=== PATIENT | female | born 1945 | race Caucasian/White ===

== ENCOUNTER 2022-10-24 11:01 | Outpatient (OUT) | payer MEDICARE, SELFPAY ==
[2022-10-24 11:39] LABS: Basophils Percent Auto 0.6 % (0.2-2.0); Eosinophils Absolute Auto 0.1 10^3/uL (0.0-0.7); Eosinophils Percent Auto 0.8 % (0.9-7.0); Hematocrit 38.7 % (36.0-48.0); Hemoglobin 12.8 g/dL (12.0-16.0); Immature Granulocytes Abs Auto 0.01 10^3/uL (0.00-0.03); Immature Granulocytes Pct Auto 0.1 % (0.0-0.5); Lymphocytes Absolute Auto 1.3 10^3/uL (1.2-3.8); Lymphocytes Percent Auto 17.7 % (20.5-60.0); Mean Corpuscular HGB Conc 33.1 g/dL (29.9-35.2); Mean Corpuscular Hemoglobin 31.8 pg (26.7-34.0); Mean Platelet Volume 9.4 fL (9.5-13.5); Monocytes Absolute Auto 0.4 10^3/uL (0.3-0.8); Monocytes Percent Auto 5.2 % (1.7-12.0); Neutrophils Absolute Auto 5.3 10^3/uL (1.4-6.5); Neutrophils Percent Auto 75.6 % (43.0-75.0); Platelet Count 249 10^3/uL (150-450); Red Blood Count 4.03 10^6/uL (4.20-5.40); Red Cell Distribution Width 12.6 % (11.0-15.0); White Blood Count 7.1 10^3/uL (4.0-11.0)
[2022-10-24 13:08] LABS: Alanine Aminotransferase 31 U/L (14-59); Albumin Globulin Ratio 1.4; Albumin Level 3.9 g/dL (3.4-5.0); Alkaline Phosphatase 95 U/L (46-116); Anion Gap 13.2; Aspartate Amino Transferase 22 U/L (15-37); BUN Creatinine Ratio 24.7; Bilirubin Total 0.6 mg/dL (0.2-1.0); Chloride 107 mmol/L (98-107); Chol HDL Ratio 1.9; Cholesterol 204 mg/dL (<=200); Estimated GFR (African America >60 (>=60); Estimated GFR (Non-African Ame >60 (>=60); Free T3 2.11 pg/mL (2.18-3.98); Globulin 2.7 g/dL; Glucose 95 mg/dL (74-106); HDL Cholesterol 110 mg/dL (40-60); Potassium 4.2 mmol/L (3.5-5.1); Sodium 142 mmol/L (136-145); Total Protein 6.6 g/dL (6.4-8.2); Triglycerides 25 mg/dL (<=150)
[2022-10-24 15:33] LABS: Estimated Average Glucose 105 mg/dL; Glycohemoglobin A1C 5.3 % (4.5-6.2)
[2022-10-25 12:09] LABS: Insulin 4.4 uIU/mL (2.6-24.9)
== END 2022-10-24 11:02 | disposition home or self-care (01) ==
LOC: LAB 11:06
PROVIDERS: PCP Family Medicine; Visit Provider Family Medicine
DX: F41.9 Anxiety disorder, unspecified (principal); E78.5 Hyperlipidemia, unspecified; R53.83 Other fatigue; R73.09 Other abnormal glucose; Z79.899 Other long term (current) drug therapy; D64.9 Anemia, unspecified; E55.9 Vitamin D deficiency, unspecified
CPT/HCPCS: 36415; 80053; 80061; 82306; 83036; 83525; 83540; 84436; 84443; 84481; 85025

== ENCOUNTER 2022-11-14 11:19 | Outpatient (OUT) | payer MEDICARE, SELFPAY ==
--- NOTE | 2022-11-14 11:24 | XR_ITS ---
[address] [address] Patient Name: JUAN ABDALLA MRN: [id number] date: 1945 Sex: F Assigned Patient Location: [facility] Current Patient Location: RAD Accession/Order Number: [id number] Exam Date: 11/14/2022 11:33 Report Date: 11/14/2022 12:15 At the request of: LUCILLE LIVINGSTON Procedure: XR DEXA axial skeleton EXAMINATION: XR DEXA axial skeleton HISTORY: Age Related Osteoporosis M81.0 COMPARISON: DEXA bone densitometry 01/05/2017 TECHNIQUE: Dual-energy X-ray absorptiometry (DXA) was performed. FINDINGS: FOREARM ANALYSIS: Average bone mineral density is 0.584 g/cm2. T-score (standard deviation relative to young adult mean): -1.8 . -10.4% change since prior study. HIP ANALYSIS: Lowest bone mineral density is within the femoral neck, 0.857 g/cm2. T-score (standard deviation relative to young adult mean): -1.3 . +4.8% change since prior study. XR/XR DEXA axial skeleton IMPRESSION: [employer] Classification: Osteopenia - Moderate Fracture Risk Electronically authenticated by: DIANE VIVAR Date: 11/14/2022 12:15
== END 2022-11-14 11:20 | disposition home or self-care (01) ==
LOC: RAD 11:19
PROVIDERS: PCP Family Medicine; Visit Provider Family Medicine
DX: M81.0 Age-related osteoporosis without current pathological fracture (principal); E28.39 Other primary ovarian failure; M85.88 Other specified disorders of bone density and structure, other site
CPT/HCPCS: 77080

== ENCOUNTER 2023-07-12 07:24 | Outpatient (RCR) | payer MEDICARE, SELFPAY ==
[2023-07-12] MEDS: DENOSUMAB 60 MG/ML SYRINGE SUBQ (12:06)
[2023-07-12 12:07] LABS: Calcium 8.9 mg/dL (8.5-10.1); Estimated GFR (African America >60 (>=60); Estimated GFR (Non-African Ame >60 (>=60)
[2023-07-12 12:10] VITALS: BP 126/76; PULSE 76; TEMP 37.3; O2SAT 96
--- NOTE | 2023-07-12 12:12 | PC.NURSE ---
1155: Pt. to [facility] amb. Seated in recliner. VSS. Denies questions regarding medication. 1205: Medicated with Prolia sq to left upper arm. No bleeding to site. Instructed pt. remain present for 15-20 mins for observation. Pt. given diet Coke.
--- NOTE | 2023-07-12 12:23 | PC.NURSE ---
1221: Pt. d/c'd amb. to home. Pt. without s&s of adverse reaction
== END 2023-08-08 23:59 | disposition home or self-care (01) ==
LOC: INF 07:24
PROVIDERS: PCP Family Medicine; Visit Provider Family Medicine
DX: M81.0 Age-related osteoporosis without current pathological fracture (principal)
CPT/HCPCS: 36415; 82310; 82565; 96372; J0897

== ENCOUNTER 2024-02-19 11:32 | Outpatient (OUT) | payer MEDICARE, OTHER, SELFPAY ==
--- OUTSIDE RECORDS SUMMARY | 2024-02-19 11:36 | XMS_ITS | CCD ---
Author Organization [facility] Care Team Providers Care Payroll Administrator Name Role Phone CHRISTOPHER HINSON Consulting Unavailable CHRISTOPHER HINSON Admitting Unavailable DR LUCILLE LIVINGSTON Primary Care Unavailable CHRISTOPHER HINSON Attending Unavailable RYAN WRIGHT Consulting Unavailable DR LUCILLE LIVINGSTON Primary Care Unavailable JAZZMINE JASMINE Attending Unavailable JAZZMINE JASMINE Consulting Unavailable JAZZMINE JASMINE Admitting Unavailable Problems Active Problems Problem Classification Problem Date Documented Da te Episodic/Chronic Cataract (4 sources) Age-related nuclear cataract, left eye; Translations: [AGE-REL NUCLEAR CATARACT LT EYE] Onset: 07-16-2020 Chronic Other non-traumatic joint disorders (4 sources) Other specific joint derangements of right shoulder, not elsewhere classified; Translations: [OTH SPEC JOINT DERANG RT SHLDR NEC] Onset: 11-04-2020 Chronic Past or Other Problems Problem Classification Problem Date Documented Da te Episodic/Chronic Other eye disorders (1 source) Dry eye syndrome of unspecified lacrimal gland; Translations: [DRY EYE SYNDROME UNS LACRIMAL GLAND] Onset: 07-17-2020 Episodic Results Test Name Value Interpretation Reference Range Facility MAGR Intraoperative Recordon 01-25-2021 MAGR Intraoperative Record MAGR Intra-Op Record Summary Primary Physician: Huang Mclaughlin DO Finalized Date/Time: 01/25/21 12:23:07 Pt. Name: JUAN ABDALLA/Sex: 1945 FEMALE Med Rec #: [id number] Physician: Huang Mclaughlin DO Financial #: [id number] Pt. Type: D Room/Bed: / Admit/Disch: 01/11/21 06:01:30 - 01/11/21 14:26:00 Institution: Case Times MAGR Entry 1 Patient In Room Time 01/11/21 07:38:00 Out Room Time 01/11/21 10:05:00 Anesthesia Start Time 01/11/21 07:40:00 Stop Time 01/11/21 10:09:00 Surgery Start Time 01/11/21 08:21:00 Stop Time 01/11/21 09:59:00 Last Modified By: Christie Franco RN 01/11/21 11:26:28 Case Attendance MAGR Entry 1 Entry 2 Entry 3 Case Attendee Huang Mclaughlin Robert M MD Payne RN, Matthew Rivero DO Role Performed Surgeon - Primary Anesthesiologist of Manager Personnel Selection Record Time In 01/11/21 07:38:00 01/11/21 07:38:00 01/11/21 07:38:00 Time Out 01/11/21 10:05:00 01/11/21 10:05:00 01/11/21 10:05:00 Procedure Arthroplasty Shoulder Arthroplasty Shoulder Arthroplasty Shoulder Total(Right) Total(Right) Total(Right) Last Modified By: Tremaine RN, Matthew Penaloza RN, Matthew Penaloza RN, Matthew Augustine 01/11/21 12:07:58 01/11/21 12:07:58 01/11/21 12:07:58 Entry 4 Entry 5 Entry 6 Case Attendee Elise Shaw RN, Leigh-Ann CST Johnson-Williams, Regina CST Role Performed Journeyman Pipe Welder Journeyman Pipe Welder Scrub Personnel Time In 01/11/21 07:38:00 01/11/21 07:38:00 01/11/21 07:38:00 Time Out 01/11/21 10:05:00 01/11/21 10:05:00 01/11/21 10:05:00 Procedure Arthroplasty Shoulder Arthroplasty Shoulder Arthroplasty Shoulder Total(Right) Total(Right) Total(Right) Last Modified By: Tremaine RN, Matthew Penaloza RN, Matthew Penaloza RN, Matthew Augustine 01/11/21 12:07:58 01/11/21 12:07:58 01/11/21 12:07:58 General Comments: ANDREAS CASTRO-ARTHREX Surgical Procedures MAGR Pre-Care Text: A.20 Verifies operative procedure, surgical site, and laterality Im.150 Develops individualized plan of care Entry 1 Procedure Arthroplasty Shoulder Primary Procedure Yes Total Primary Surgeon Arnoldo, Huang Modifiers Right Mat DO Surgeon Comment RIGHT TOTAL SHOULDER Start 01/11/21 08:21:00 Stop 01/11/21 09:59:00 Anesthesia Type General Surgical Service Orthopedics Wound Class Clean Technique Details Closure Technique Primary Entire procedure No was performed via laparoscope or robotic assistance Last Modified By: Matthew Penaloza RN 01/11/21 12:08:06 Post-Care Text: O.730 The patient's care is consistent with the individualized perioperative plan of care General Case Data MAGR Pre-Care Text: A.350.1 Classifies surgical wound Entry 1 Case Information OR MAGR OR 05 Case Level Level 5 Wound Class Clean Specialty Orthopedics ASA Class 2 Diagnosis Preop Diagnosis DJD RIGHT SHOULDER Postop Same As Preop Yes Postop Diagnosis DJD RIGHT SHOULDER Blunt or No Is the procedure No penetrating injury considered occured prior to Emergent/Urgent? the start of the procedure: Last Modified By: Matthew Penaloza RN 01/11/21 08:32:45 Post-Care Text: O.760 Patient receives consistent and comparable care regardless of the setting Time Out MAGR Entry 1 Time out date/time 01/11/21 08:20:00 All team members Yes have introduced themselves by name and role Surgeon, Yes Surgeon reviews Yes anesthesia, nurse critical or confirm patient, unexpected steps, site, procedure operative duration, anticipated blood loss Anesthesia team Yes Nursing team Yes reviews any reviews sterility patient-specific (including concerns indicator results) and equipment issues/concerns Antibiotic Antibiotic Yes Administration Time 08:00 prophylaxis given within the last 60 minutes Is essential N/A imaging displayed? Last Modified By: Matthew Penaloza RN 01/11/21 08:24:38 Patient Positioning MAGR Pre-Care Text: A.280 Identifies baseline musculoskeletal status Im.40 Positions the patient Im.80 Applies safety devices Entry 1 Procedure Arthroplasty Shoulder Body Position Beach Chair Total(Right) Left Arm Position Resting at Side Right Arm Position Held on field Left Leg Position Elevated Right Leg Position Elevated Feet Uncrossed? Yes Press Points Checked Yes Positioning Device Head Positioner, Pillow Outcome Met (O.80) Yes Last Modified By: Matthew Penaloza RN 01/11/21 08:34:59 Post-Care Text: E.290 Evaluates musculoskeletal status O.80 Patient is free from signs and symptoms of injury related to positioning Skin Prep MAGR Pre-Care Text: A.30 Verifies allergies Im.270 Performs skin preparation Im.270.1 Implements protective measures to prevent skin and tissue injury due to chemical sources Entry 1 Skin Prep Syntegrity Prep Agents (Im.270) Chlorhexidine Gluconate Prep By Tremaine MERCHANT, Matthew Augustine and Alcohol Prep Area (Im.270) Elbow and forearm, Prep Area Details Right Hand, N (more content not included)... [facility] Coding Summaryon 01-15-2021 Coding Summary HTMLBase 64 ItlplsfeWOs9rWl+PGhlY WQ+QX3FTYSvK49swDOhwT 3ZJ6gCRE2RCLDGFNJUWS1 WIT4gfGF6SAvzV4FhooJc OvklvPGsEY09ZOa1PLZ5h LjpEJnyrO6fsEUrG8k0Zh TpWS53yP85IQwbZWAcDkX 3LjZpbjsgbWFy K7irAgLmpSJgZqv+PHRhY mxlIHdpZHRoPScxMDAlJy FfgFelNG8xVk0sZFQvUKP vbGxhcHNlOiBj c3tqRLHzZDwsZP0jnNcjP 7JvlPF7SIHuw1x5Cw04fR I+YWNlUKG4sJyyHXmnw79 0GhFnk9qlTTF8 fMVxMPurADN4E70vs4W2B ETtGNFhCFA0zSD1bT4ezA jqmwwsR0EjoRBbLyD3HBF 1uUKnlP9kgXbs dqezvS8nVli+O45LDH2LP JJLBL7JFha9M3AqLmbwtN I+SZ11GVSsJP32lSOgtWX ty3vvcDg2UxSz WEDrMPA7gQijCQmvs1BxT VJhM50emMRdq1V7KJAosM rctXNaLoXytLV4fM9rUXt fnifxv4ryotvr Jinrp6rfxw79fP72R86lE EbyAYNyFUJ9PZDfQISsqS mces5wdK5nRn9+MKymc1t ut2yrvHc4ZhJq HSPgibLjeTsoILP5d9JxI s83Z5DlcEega4EvRhs7pi 93zUHsp4S8sFG6WNdyJQN acO6lMDndDwI3 FDKqZiTdaA67aNKoXPtuL v5asVhinRhgDB0wHWHxpg hoGCIpnV1jXHPrmPLqyWb cYO4tGXAybxts i676PyUwSQV2UIQelQEmT 1EcvK8fTiZvZJMrEFEqG2 KdaVFfPTkfN833YGadXmD 6LYZdmsEiU6Fo CWEiyQduBfS6o5H9Mq6Ic 2RemgqnHSK2QIpdVQDvEm K4VsYxVgJ5P4YnMnv1TFO nnCvkQD2bS1Eb FKYokioyxnujdTQ5AESlY UYqkQ40mKCiGXfpLr5vq3 I0g867WKMsSAQoiF84Qc3 udDogMTBwdCBU sC2leqwkt0zypcfrAcZyG YQdZPm3CGd2BSAblMxzFr UqUPF5DlH4CYP4uYQoaK9 ceOaedqpfbB4d Oyc+Y84njD1tVBA2MNR0a kwiVBIopfFtNN48YA82D5 RyPjwvdGFibGU+PGRpdiB hjAueTZ2xJbNk a5krb6BiIPcoV7XlVLRgH VawGun2VEItTPJ2gFT4yN 7cGOAsEHdob0Q2yJU4D2S oerXxiq9ne3oj OWDgFPqxV08uzVYzq1E5J GAbnOY6ZBHcyTcyOrMkwZ 93Oyc+QBLgtUssi8FlRnh lf2ktw8ikmVx2 VrFaBJPfftYzsIycYIK3q 3AiLe28C28aTDgaARFeUL KbWXFbBIGflVyfnr5yfG9 wIi8+PGNvbCB3 vEP7dH8yKZJzGsZ1UXdsJ 201GxNyuNQzZykbn2vgf0 bctPq2SlKdCOZbxxRitUl kAAL5i6DbHg30 T66cARqbLNXeKIEkCIZoF WTtnOijck4xmK5hGo1+PC 7bc5vttq99rP13cWJ+PHR pCZY1wVngCGzf YBUbhL9hCTcwThJ0LBNbA tXwmB86bGMrFZohRv0moT nkhBykPV3pWLKcwgttj78 7SdBsz2orUQWz nJChHTbtAKO7M03dy1W2C VBfSAQcSUS0fQN2vE0zeJ lnbjogbGVmdDsgdmVydGl wLTpeLTjoO157 IHRvcDsnPlBhdGllbnQgT qXcOBr6P2YlIgy4UVMtxB pyPP0ylFSyOCyfUc2ypHt mbMfaGS9mYKTw ffhuo906DvOgd8xcLAQcu DIzYYwcLCH3I62kb8Z2YM YcCIBbHDK3cVD0cJ1dfLm nbjogbGVmdDsg adGhhWmgYRluVXktL389O HRvcDsnPkJpcnRoIERhdG A7TH33MQ49kVIpi7Q0hTS 9D6SyZNRuoujg vzeguCI2NSKuLWSmiL79U g7lxArwCm6nZUOwQKN7JK SweZGcT9KvbI9sWxQqPOF fATWdN2JzyNRm SZryR322XFtjYhH2WTPii bKuP2FmHYJxqOfqTuP9y1 M9Gl9VM3N0FC05QI71oTU hq7G2lKN2N3Ui UMDnllenqkbiaDU4APWhB VXuwT39So3peKrcCi0uAT YqIVA4KQTpcNDeQ0TdzZ1 yOiAjMDAwMDAw U9PheZEoKRpnE110ALglZ iY2MKNcioLaW4MdHTLkjR xgEnT9k0S0An6COOz0FK4 8CV48fXSug1S0 jWX2O7CpZHEazbnloihci GX7TRGtDFObpR20Go2kjW hkDo3oYHKzUGG1VEZvzSU lS0NrsK9sXsYi CHNsJHVuJ6UxrOWtCTaeF 679JUtaWeS9NRQrmsWwF4 ObLHNweFtjEoY2p8J5Cp3 WPUHxUK50COR1 aGD4VD70MR52E2IdGwotv GFibGU+PHRhYmxlIHdpZH RoPScxMDAlJyBzdHlsZT0 nKi0rCIXgJJTo oZbyyEUbGvUaq3oyJKXuS YkaNZ5mxWlqS6ZwmOJ0GU Soz3y1Az23L51rM8FymBI +ARIjtUG5iAP6 oN4jDqQkExJ8WBaoZ138F kHtiHAvKnayb3qpx0nunW d1HfF5AFFaslVozGvlYNC 0l2LdWd35M80e IHdpZHRoPSIxNSUiIHZhb Rxyzp3ktH2iUm6+PGNvbC A2wBB1pJ5nWmRzLzF3GUt aL463LfWhcEPy Cflqg6osd3mwzAd1ZnRvM EGnvmRglXdaXJC8n4WqMq 80K3AciVsdk6AvIxx0bz5 9sSEnr2X5qDG4 Z2CmWHShhrfwyHIdpJgoG N2nBBEbwfetWINpwY1vGB YkP0z4FvEzLkO7EAgdL5S dpqS0HRJqiRJo RTndVXL1T46ya9Q0MGHyD MNnJWQ9hOE0fF4zzJcrhp ogbGVmdDsgdmVydGljYWw wVRmiO997RGDl zGohDZGjiZ8bPMRnpJJav DykNV2pCKIgmgjgKhpDRf WPGIVhNPQTWTFKN6tZYUU 8I2MmDkl2JOJx mEndEZ2reJVpRIfpBy1bw KcbzPbmVL0wPANrvvolKQ FkzL1eEBKvfQFypQqnRU4 nLBPjonpji885 GjKfQEY9JNAxuCRcL7Ort D6mAjKoKSFfKQCzC4NkgH ZnCMllA241GTrnHeN2JMG syxAsE6RsOXDx gErnKnV3o6K9Zg1kTz4kY C9aVYG4KH01BE59jPTrp2 C3gPO1H5AjVMScwrkpbaq foTR2AFUyDIWe mZ51bKGfLNljGv5ex0U2s 631NIJfYDDiiS49Zb4mnT myASJdcVGKpT3jpanac3m vcjogIzAwMDAw QIh9GDc2XOMdxZnsVwArN GD7JtU3TGX9nIVwyH7ajJ najoikoO6iOrs+NzYgWWV uhrL5N7HpYwm2 RUBozPwbLF0jgXKiXTfnP r0tqSrxaEenUT2vQHPuuj zdRWEvdJ6vFPKhzLDlhLy kJH7jKYTcjudf w418WzGsCLO4RGCjiRBgL 9VloK4qMvQnOJWwWZGyO7 StkPJcUFbdR883ISwfYeP 0EQQseeCvC8Kl ZEFvqZmqGrK7i1W0Xd6SI E3KFHV6O4XzXnf6TCWvwB lcWW7gvGFzOCsaIf3oaYk sbHnqZK2dBLXi iztbYEAsqE6gVAZatJXkn JfhMA8mPCVzdwzpt022Xe LiKCX9YRYdzAYvR9LncR3 yOiAjMDAwMDAw Y9NfqNGiJBixC638GIaxW yG4CGAqoaNlL7EeNHTkaU gdJbT7l0I6Vw4BGZyzG6X iM4LshVixvGC+ JV44ys52Z3TlZojuKri4G UYyRQD7cRJ4zK2wTTFkDO tyz9W0zDF6I4ZputImoq2 bh5seGXEnZTdg P74deHTjh7V8PZIvdNS9W VXzaJefSnYzcL43Snw+PG QnfFfoo3ZnAqfjn0vmi9w hsTk0XvVuJHAs jkPhnYwmVGD8u9FnMg35G 29sIHdpZHRoPSIzMCUiIH VkqKfusz4zhZ5jCt5+PGN yhWC3hXX7wE6y UuIcRsI0EFwfR983QpXdc RHyHwkbr9eio7vmjMy9Dy SxDVDjmsUwnEalMWO6i2Q bUp32H7TesRja u2VbGnz4xy18nMXio6R7a NO7X1GgGJRljwbgoTFdfB ihAA0eNDSaawmbDIPvnS9 uZKLeW1j7HvGl LoL3KDseD5FmqsO4DEZwv VRzUIIqaOEUuG4klrmcc0 lefcapPsQdBGAoOIe7JUg 0LWFsaWduOiBs YAR3OjV9SQD6cZBfqL6qj ZesomvzhZ5zWyx+UGh5c2 izfJHsCE9guIJ9NI58BS6 0aXHyc2G7dCD8 G0TdQBQpkbrilgeaxYM2X FEoYGDkaY00Ce2khGtkKv 8pAJOeFUH6UFJbtWGwM5E wyS0tEsDiKDLe NCCgG2EbpLTyMNogQ817W LqmZlY7CAWptfPvP0JvSA KzaCicUcR2e0O7Bk4HPU3 7JX47TK69dLNg y9C8hZY9G5AmUKQyipoko erpjIY7LSTyROGmyL88Lh 3nzTqrCd7yGFAtDQO2SYO idSDnF1ChkV9r ItNeWCBcAHYpF5ZiwDTeB IuaH865JMucJuA1MRIfgz GsJ0NmKYCzmKqbQaN0k7L 7Ub4FDs12OR70 RU35nJVmo9Z3mSX6V6KdR HJpatnrfeykdMM0HOZfGL PblX49Mg4iuKfcMn0tVRG kIPK1WCSqeXKf P3PhsH7qSyRvHBPmNMWwX 8HtiIDnHSrdR451YHwkGw V2PDErevIeM3LhIFQgbNe yAtU3y6Y9Gj2X FNehhru7T9PfLnuozSB+P J75IPVcNO88qDUpzUIst1 pqjMt3ZtDtOWPxMSC4cJh kQPfjo9ZlMUQj Y29 (more content not included)... Normal [facility] MAGR Intraoperative Recordon 01-14-2021 MAGR Intraoperative Record MAGR Intra-Op Record Summary Primary Physician: Nasim Egan MD Finalized Date/Time: 01/14/21 12:46:14 Pt. Name: JUAN ABDALLA/Sex: 1945 FEMALE Med Rec #: [id number] Physician: Huang Mclaughlin DO Financial #: [id number] Pt. Type: D Room/Bed: / Admit/Disch: 01/11/21 06:01:30 - 01/11/21 14:26:00 Institution: Case Times MAGR Entry 1 Patient In Room Time 01/11/21 07:20:00 Out Room Time 01/11/21 07:38:00 Anesthesia Start Time 01/11/21 07:22:00 Stop Time 01/11/21 07:38:00 Surgery Start Time 01/11/21 07:23:00 Stop Time 01/11/21 07:33:00 Last Modified By: Charlette Eddy RN 01/11/21 07:55:09 Case Attendance MAGR Entry 1 Entry 2 Case Attendee Nasim Egan MD, Lora RN Role Performed Surgeon - Primary Manager Personnel Selection Time In 01/11/21 07:20:00 01/11/21 07:20:00 Time Out 01/11/21 07:38:00 01/11/21 07:38:00 Procedure Interscalene Interscalene Block(Right) Block(Right) Last Modified By: Charlette Eddy RN, Lora RN 01/11/21 07:55:12 01/11/21 07:55:12 Surgical Procedures MAGR Pre-Care Text: A.20 Verifies operative procedure, surgical site, and laterality Im.150 Develops individualized plan of care Entry 1 Procedure Interscalene Block Primary Procedure Yes Primary Surgeon Nasim Egan MD Modifiers Right Surgeon Comment SCALENE BLOCK PRIOR TO Start 01/11/21 07:23:00 RIGHT TOTAL SHOULDER Stop 01/11/21 07:33:00 Anesthesia Type Regional Block Surgical Service Anesthesia Wound Class Clean Technique Details Closure Technique N/A Entire procedure No was performed via laparoscope or robotic assistance Last Modified By: Charlette Eddy RN 01/11/21 07:55:14 Post-Care Text: O.730 The patient's care is consistent with the individualized perioperative plan of care General Case Data MAGR Pre-Care Text: A.350.1 Classifies surgical wound Entry 1 Case Information OR MAGR Proc Room Case Level None Wound Class Clean Specialty Anesthesia ASA Class 1 Diagnosis Preop Diagnosis SCALENE BLOCK PRIOR TO Postop Same As Preop Yes RIGHT TOTAL SHOULDER Postop Diagnosis SCALENE BLOCK PRIOR TO RIGHT TOTAL SHOULDER Blunt or No Is the procedure No penetrating injury considered occured prior to Emergent/Urgent? the start of the procedure: Last Modified By: Charlette Eddy RN 01/11/21 07:52:47 Post-Care Text: O.760 Patient receives consistent and comparable care regardless of the setting Time Out MAGR Entry 1 Time out date/time 01/11/21 07:22:00 All team members Yes have introduced themselves by name and role Surgeon, Yes Surgeon reviews Yes anesthesia, nurse critical or confirm patient, unexpected steps, site, procedure operative duration, anticipated blood loss Anesthesia team Yes Nursing team Yes reviews any reviews sterility patient-specific (including concerns indicator results) and equipment issues/concerns Antibiotic Antibiotic N/A prophylaxis given within the last 60 minutes Is essential Yes imaging displayed? Last Modified By: Charlette Eddy RN 01/11/21 07:53:11 Patient Positioning MAGR Pre-Care Text: A.280 Identifies baseline musculoskeletal status Im.40 Positions the patient Im.80 Applies safety devices Entry 1 Procedure Interscalene Body Position Supine Block(Right) Left Arm Position Resting at Side Right Arm Position Resting at Side Left Leg Position Extended Right Leg Position Extended Feet Uncrossed? Yes Press Points Checked Yes Outcome Met (O.80) Yes Last Modified By: Charlette Eddy RN 01/11/21 07:59:54 Post-Care Text: E.290 Evaluates musculoskeletal status O.80 Patient is free from signs and symptoms of injury related to positioning Skin Prep MAGR Pre-Care Text: A.30 Verifies allergies Im.270 Performs skin preparation Im.270.1 Implements protective measures to prevent skin and tissue injury due to chemical sources Entry 1 Skin Prep Syntegrity Prep Agents (Im.270) Chlorhexidine Gluconate Prep By Nasim Egan MD and Alcohol Prep Area (Im.270) Shoulder, Neck Prep Area Details Right Skin Prep Agent Dry Yes Without Pooling Hair Removal Syntegrity Hair Removal Methods No hair removal performed Outcome Met (O.100) Yes Last Modified By: Charlette Eddy RN 01/11/21 08:04:16 Post-Care Text: E.10 Evaluates for signs and symptoms of physical injury to skin and tissue O.100 Patient is free from signs and symptoms of chemical injury Departure from OR MAGR Entry 1 Present on Depart N/A Via Stretcher Post-op Destination [place] [facility] DFO Condition Warm Description Condition Dry Description Report Given To Tremaine MERCHANT, Matthew Augustine Airway Maintenance Patient Status Stable Oxygen in Use? Yes Airway Device Oral airway Flow Rate 2 Last Modified By: Charlette Eddy RN 01/11/21 07:54:29 General Comments: patient taken to OR Case Comments Finalized By: Charlette Eddy RN Document Signatures Signed By: Charlette Eddy (more content not included)... [facility] Provider Orderson 01-13-2021 Provider Orders [id number]#1 [facility] 01-12-2021 Consent Forms [id number] [facility] [id number] 0 [id number] [facility]operative Recordon 1 MAGR Preoperative Record MAGR Pre-Op Record Summary Primary Physician: Huang Mclaughlin DO Finalized Date/Time: 01/12/21 13:04:04 Pt. Name: JUAN ABDALLA /Sex: 1945 FEMALE Med Rec #: [id number] Physician: Huang Mclaughlin DO Financial #: [id number] Pt. Type: D Room/Bed: / Admit/Disch: 01/11/21 06:01:30 - 01/11/21 14:26:00 Institution: Pre-Op Case Times MAGR Pre-Care Text: Patient will be optimally prepared for surgery. Patient is free from s/s of injury. Provide information to patient/family related to plan of care. Verify patient allergies. Confirm identity and verify consent before the operative or invasive procedure. Entry 1 Patient Arrival Time 01/11/21 06:12:00 Preop Departure 01/11/21 07:36:00 Last Modified By: Christie Franco RN 01/11/21 11:26:36 Post-Care Text: Patient is prepared mentally and physically and is ready for surgery. The patient remains free from s/s of injury. Patient/family express understanding of plan of care and participate in decisions affecting his or her perioperrative plan of care. Allergies documented appropriately. Patient identifiers and consent correct. General Comments: Denies chest pain, shortness of breath or illnessess. Denies pacemaker/defib. Denies sleep apnea. Reviewed for the next 24 hours not to do anything that takes concentration. Finalized By: Charlette Eddy RN Document Signatures Signed By: Charlette Eddy RN 01/12/21 13:04 [facility] Outside Recordson 01-12-2021 Outside Records [id number] .00[facility] Telemetry Stripson Telemetry Strips [id number]#1 .00[facility] Anesthesia Noteon 01-11-2021 Anesthesia Note Patient: JUAN ABDALLA Age: 75 years Sex: FEMALE : 1945 Associated Diagnoses: None Author: Nasim Egan MD Postoperative Information Post Operative Note: Operative Day. Anesthetic utilized: General. Health Status Allergies: Allergic Reactions (All) No Known Medication Allergies Problem list (past medical history): All Problems Arthritis / SNOMED CT 9326182 / Confirmed Osteopenia / SNOMED CT 060373464 / Confirmed Spondylosis / SNOMED CT 19582636 / Confirmed Physical Examination VS/Measurements Vital Signs (last 24 hrs) Last Charted Heart Rate Monitored 104 bpm (JAN 11 10:00) Resp Rate 18 br/min (JAN 11 10:00) SBP 150 mmHg (JAN 11 10:00) DBP 81 mmHg (JAN 11 10:00) Review / Management Condition: Stable. Assessment Anesthetic outcome No anesthetic complications noted. Plan Transfer/ Discharge: Patient can be discharged from PACU when criteria met. Condition good. [Electronically Signed on: 01/11/2021 10:12 EDT] Nasim Egan MD [Verified on: 01/11/2021 10:12 EDT] Nasim Egan MD [facility] Anesthesia Note Patient: JUAN ABDALLA Age: 75 years Sex: FEMALE : 1945 Associated Diagnoses: None Author: Nasim Egan MD Preoperative Information Anesthesia history: Patient history: No difficult intubation, No malignant hyperthermia. Family history: No malignant hyperthermia. Review of Systems Constitutional: Negative. Respiratory: Negative, No shortness of breath. Cardiovascular: No chest pain. Neurologic: Alert and oriented X4. Health Status Allergies: Allergic Reactions (All) No Known Medication Allergies Current medications: Home Medications (8) Active Caltrate 600 + D oral tablet 1 tab(s), PO, BID ferrous sulfate 325 mg (65 mg elemental iron) oral tablet 1 tab, PO, Daily Fosamax 70 mg oral tablet 70 mg = 1 tab(s), PO, qWeek ibuprofen 200 mg oral tablet 400 mg = 2 tab(s), PRN, PO, q6hr Multivitamin, generic 2 tab(s), PO, Daily Nature's Bounty Hair Skin & Nails oral tablet, chewable 2 tab(s), PO, Daily Prevagen 50 mcg (2000 intl units) oral capsule 1 tab(s), PO, Daily Tylenol Extra Strength 500 mg oral tablet 1,000 mg = 2 tab(s), PRN, PO, q6hr Problem list (past medical history): All Problems Arthritis / SNOMED CT 0390751 / Confirmed Osteopenia / SNOMED CT 817887564 / Confirmed Spondylosis / SNOMED CT 91356355 / Confirmed Histories Family History: Cancer Father TIA Mother Coronary heart disease Mother Procedure history: Rotator cuff repair ([id number]) in 2019 at 74 Years. Comments: 12/23/2020 13:17 ALEXAT - Charlette Eddy RN Right Rotator cuff repair ([id number]) in 2003 at 58 Years. Comments: 12/23/2020 13:13 Charlette Cox RN Right shoulder Cataract extraction ([id number]). History of lumbar fusion (9097501767). Laminectomy (1369620238). Cholecystectomy (52098129). Breast reduction, bilateral (776165392). Colonoscopy (343452340). Social History Electronic Cigarette/Vaping Assessment Electronic Cigarette Use: Never. Alcohol Assessment Use: Past. Tobacco Assessment Former smoker, quit more than 30 days ago Tobacco Use:. 8 year(s). Comment: Quit smoking in 1989 Substance Abuse Assessment Substance use: Never. . Social & Psychosocial Habits Alcohol 12/23/2020 Alcohol Use: Past Substance Abuse 12/23/2020 Substance use: Never Tobacco 12/23/2020 Smoking tobacco use: Former smoker, quit more Number of years: 8 Comment: Quit smoking in 1989 - 12/23/2020 13:42 - Charlette Eddy RN Electronic Cigarette/Vaping 12/23/2020 Electronic Cigarette Use: Never . Physical Examination VS/Measurements Vital Signs (last 24 hrs) Last Charted Heart Rate Peripheral L 58 bpm (JAN 11 07:35) Resp Rate L 12 br/min (JAN 11 07:35) SBP 114 mmHg (JAN 11 07:35) DBP 62 mmHg (JAN 11 07:35) Airway: Mallampati classification. Temporomandibular joint mobility: Good. Mouth: Adequate opening, Tongue ( Within normal limits ), Teeth ( Within normal limits, pt has been having tooth aches, but everything checked out ok per dentist ). Neck: Full range of motion. Respiratory: Lungs are clear to auscultation. Cardiovascular: Regular rhythm. Neurologic: Alert, Oriented. Review / Management Laboratory Results Plan [place] [employer]#( A) physical status classification: Class I. Anesthetic Preoperative Plan Anesthesia: General. , Regional (Interscalene Block, for post op pain control). Anesthetic plan, risks, benefits, and alternatives discussed with the patient and/or family. Patient verbalized understanding. [Electronically Signed on: 01/11/2021 08:16 EDT] Nasim Egan MD [Verified on: 01/11/2021 08:16 EDT] Nasim Egan MD [facility] Inpatient Patient Summaryon 01-11-2021 [place] [address] Patient Discharge Instructions Name: LIANNE JUAN A : 1945 Patient Address: [address] [place] [address] Primary Care Provider: Name: LUCILLE LIVINGSTON After you are discharged if you find you have any questions, please, call [phone] ext [phone] to speak to a nurse. Discharge Diagnosis: Osteoarthritis of right glenohumeral joint; Rotator cuff tear arthropathy of right shoulder Prescription Information: If you have been given a prescription for narcotics, seek immediate medical attention if you have any difficulty breathing or any sudden status changes such as confusion and sleepiness. If you or anyone you know is experiencing suicidal thoughts, mental health, alcohol and/or drug addiction problems; contact the [facility] 31/10 Crisis Hotline -Text 6CHJP sa 527118. If you received any narcotics, sedation, or any other medication that causes drowsiness for the next 24 hours, unless otherwise directed: ? Do not drive a car. ? Do not operate machinery such as power tools, lawn mowers, drills, sewing machines, or stoves ? Avoid alcoholic beverages and drugs for allergies, nerves, or sleep ? Do not make important personal or business decisions or sign any legal documents [facility] would like to thank you for allowing us to assist you with your healthcare needs. The following includes patient education materials and information regarding your injury/illness. JUAN ABDALLA has been given the following list of follow-up instructions, prescriptions, and patient education materials: Follow-up Instructions With: Address: When: Huang Mclaughlin [address] [facility] [address] [place] [address] Business (1) 01/21/2021 10:45 AM With: Address: When: LUCILLE LIVINGSTON [address] [place] [address] [place] [address] Business (1) Medications During the course of your visit, your medication list was updated with the most current information. The details of those changes are reflected below: Medications to Continue That Have Not Changed Other Medications acetaminophen (Tylenol Extra Strength 500 mg oral tablet) 2 tab(s) Oral Every 6 hours as needed for pain. alendronate (Fosamax 70 mg oral tablet) 1 tab(s) Oral every week. calcium-vitamin D (Caltrate 600 + D oral tablet) 1 tab(s) Oral 2 times a day. cholecalciferol (Prevagen 50 mcg (2000 intl units) oral capsule) 1 tab(s) Oral every day. ferrous sulfate (ferrous sulfate 325 mg (65 mg elemental iron) oral tablet) 1 tab Oral every day. ibuprofen (ibuprofen 200 mg oral tablet) 2 tab(s) Oral Every 6 hours as needed for fever. multivitamin (Multivitamin, generic) 2 tab(s) Oral every day. multivitamin (Nature's Bounty Hair Skin & Nails oral tablet, chewable) 2 tab(s) Oral every day. oxyCODONE (oxyCODONE 5 mg oral tablet) 1 tab(s) Oral Every 6 hours as needed for pain. It is important to always keep an active list of medications available so that you can share with other providers and manage your medications appropriately. As an additional courtesy, we are also providing you with your final active medications list that you can keep with you. acetaminophen (Tylenol Extra Strength 500 mg oral tablet) 2 tab(s) Oral Every 6 hours as needed for pain. alendronate (Fosamax 70 mg oral tablet) 1 tab(s) Oral every week. calcium-vitamin D (Caltrate 600 + D oral tablet) 1 tab(s) Oral 2 times a day. cholecalciferol (Prevagen 50 mcg (2000 intl units) oral capsule) 1 tab(s) Oral every day. ferrous sulfate (ferrous sulfate 325 mg (65 mg elemental iron) oral tablet) 1 tab Oral every day. ibuprofen (ibuprofen 200 mg oral tablet) 2 tab(s) Oral Every 6 hours as needed for fever. multivitamin (Multivitamin, generic) 2 tab(s) Oral every day., womens vitafusion multivitamin (Nature's Bounty Hair Skin & Nails oral tablet, chewable) 2 tab(s) Oral every day. oxyCODONE (oxyCODONE 5 mg oral tablet) 1 tab(s) Oral Every 6 hours as needed for pain., perscription given to pt upon discharge fo right total shoulder Take only the medications listed above. Contact your doctor prior to taking any medications not on this list. Diet & Activity Patient Activity Level: Patient Diet: Regular Patient Activity Restrictions: Comment: Patient education materials, if any, will display below Reverse Total Shoulder Replacement, Care After This sheet gives you information about how to care for yourself after your procedure. Your health care provider may also give you more specific instructions. If you have problems or questions, contact your health care provider. What can I expect after the procedure? After the procedure, it is common to have: ? Pain. ? Stiffness. Follow these instructions at home: If you have a sling: ? Wear the sling as told by your health care provider. Re (more content not included)... Normal [facility] MAGR PACU Recordon MAGR PACU Record MAGR PACU Record Summary Primary Physician: Huang Mclaughlin DO Finalized Date/Time: 01/11/21 11:07:34 Pt. Name: JUAN ABDALLA/Sex: 1945 FEMALE Med Rec #: [id number] Physician: Huang Mclaughlin DO Financial #: [id number] Pt. Type: D Room/Bed: / Admit/Disch: 01/11/21 06:01:30 - Institution: PACU Case Times MAGR Entry 1 In PACU I 01/11/21 10:07:00 Discharge from PACU 01/11/21 11:07:00 I Last Modified By: Eric Eubanks RN 01/11/21 11:07:30 Finalized By: Eric Eubanks RN Document Signatures Signed By: Eric Eubanks RN 01/11/21 11:07 [facility] MAGR Postoperative Recordon 01-11-2021 MAGR Postoperative Record MAGR Phase II Record Summary Primary Physician: Huang Mclaughlin DO Finalized Date/Time: 01/11/21 14:46:15 Pt. Name: JUAN ABDALLA/Sex: 1945 FEMALE Med Rec #: [id number] Physician: Huang Mclaughlin DO Financial #: [id number] Pt. Type: D Room/Bed: / Admit/Disch: 01/11/21 06:01:30 - Institution: Phase II Case Times MAGR Pre-Care Text: Patient is free from s/s of injury. Patient remains free from compromised physical state related to surgery or anesthesia. Patient comfort maintained. Patient/family verbalize understanding of discharge instructions. Entry 1 In PACU II 01/11/21 11:11:00 Discharge from PACU 01/11/21 14:26:00 II Last Modified By: Christie Franco RN 01/11/21 14:46:10 Post-Care Text: The patient remains free from s/s of injury. Patient's vital signs stable, circulation maintained, return to preop mental and physical status, opsite/dressing intact, minimal or absent nausea and vomiting, tolerates po intake. Patient verbalizes adequate pain control. Patient/family express understanding of discharge instructions. General Comments: [facility] to room [facility] Finalized By: Christie Franco RN Document Signatures Signed By: Christie Franco RN 01/11/21 14:[address] 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 Anesthesia: General with a preoperative interscalene block Indications for surgery: The patient had had 2 previous rotator cuff repairs that had failed she had gone on to develop another tear and had underlying arthritis Estimated blood loss: 150 cc Complications: There were no complications Findings: Deficient rotator cuff arthritis glenohumeral joint Procedure summary: Patient was brought to the operative suite she was given a general anesthetic and placed in the beachchair position. The right shoulder was prepped and draped in usual fashion a timeout was taken an anterior deltopectoral splitting approach was utilized. Cephalic vein was mobilized laterally. The capsule was incised there was no biceps remaining. The subscap was torn. The supra and infraspinatus were also retracted. There were retained anchors. The humeral head was cut at 30 degrees of version. My attention was turned towards the glenoid. A central guidepin was inserted and a provisional baseplate reamer was inserted and then a peripheral reaming was performed. Post hole was drilled and measured 24. A 24 mm post with a 24 mm baseplate was impacted into place it was snug and secure it was further stabilized with 4 peripheral screws inserting the 2 nonlocking screws first followed by the locking screws. The glenosphere was impacted in place and it was this secured with a central screw. Attention was turned back to the femur a hand-held reamer was inserted and then utilizing version rods a preliminary broach was performed broaching was performed up to size 7 trial reductions were performed off a size 7 broach. There was 3 mm polyethylene trial was utilized. There was good deltoid tensioning and no tendency towards dislocation there was good range of motion. The trials were removed and a 7 apex stem was impacted into place it was snug and secure. A 36 cup with a 36+3 mm polywas clicked in the place at the 135 degrees the prosthesis was reduced and checked for stability was taken through range of motion thorough irrigation was performed. The capsule along with a remnant of subscapularis was repaired with a #2 FiberWire. Next the subcutaneous layer was closed with 0 Vicryl and 3-0 Vicryl. Dermabond glue was applied followed by sterile dressings. She was transported to the recovery room in stable condition [Electronically Signed on: 01/11/2021 14:28 EDT] Huang Mclaughlin DO [Verified on: 01/11/2021 14:28 EDT] Huang Mclaughlin DO [facility] Patient Handouton 01-11-2021 Patient Handout Orthopedics Reverse Total Shoulder Replacement, Care After This sheet gives you information about how to care for yourself after your procedure. Your health care provider may also give you more specific instructions. If you have problems or questions, contact your health care provider. What can I expect after the procedure? After the procedure, it is common to have: ? Pain. ? Stiffness. Follow these instructions at home: If you have a sling: ? Wear the sling as told by your health care provider. Remove it only as told by your health care provider. ? Loosen the sling if your fingers tingle, become numb, or turn cold and blue. ? Keep the sling clean. ? If the sling is not waterproof, do not let it get wet. Bathing ? Do not take baths, swim, or use a hot tub until your health care provider approves. Ask your health care provider if you may take showers. You may only be allowed to take sponge baths for bathing. ? If your sling is not waterproof, cover it with a watertight covering when you take a bath or shower. ? Keep your bandage (dressing) dry until your health care provider says it can be removed. Incision care ? Follow instructions from your health care provider about how to take care of your incision. Make sure you: ? Wash your hands with soap and water before you change your bandage (dressing). If soap and water are not available, use hand rn correctional. ? Change your dressing as told by your health care provider. ? Leave stitches (sutures), skin glue, or adhesive strips in place. These skin closures may need to stay in place for 2 weeks or longer. If adhesive strip edges start to loosen and curl up, you may trim the loose edges. Do not remove adhesive strips completely unless your health care provider tells you to do that. ? Check your incision every day for signs of infection. Check for: ? More redness, swelling, or pain. ? More fluid or blood. ? Warmth. ? Pus or a bad smell. Driving ? Ask your health care provider when it is safe for you to drive. ? Do not drive or use heavy machinery while taking prescription pain medicine. ? Do not drive for 24 hours if you were given a medicine to help you relax (sedative). Activity ? Return to your normal activities as told by your health care provider. Ask your health care provider what activities are safe for you. ? Do shoulder exercises as told by your health care provider. ? Do not lift your arm above shoulder level until your health care provider approves. ? Do not make large arm movements. ? Do not push or pull things until your health care provider approves. ? Do not lift anything that is heavier than 5 lbs (2.3 kg) until your health care provider approves. Managing pain, stiffness, and swelling ? If directed, put ice on your shoulder. ? Put ice in a plastic bag. ? Place a towel between your skin and the bag. ? Leave the ice on for 20 minutes, 2?3 times a day. ? Move your fingers and hand often to avoid stiffness and to lessen swelling. General instructions ? Do not use any products that contain nicotine or tobacco, such as cigarettes and e-cigarettes. These can delay bone healing. If you need help quitting, ask your health care provider. ? To prevent or treat constipation while you are taking prescription pain medicine, your health care provider may recommend that you: ? Drink enough fluid to keep your urine clear or pale yellow. ? Take lzjp-tpa-qoiswua or prescription medicines. ? Eat foods that are high in fiber, such as fresh fruits and vegetables, whole grains, and beans. ? Limit foods that are high in fat and processed sugars, such as fried and sweet foods. ? Take tvny-iqc-hphddqq and prescription medicines only as told by your health care provider. ? Keep all follow-up visits as told by your health care provider. This is important. Contact a health care provider if: ? You feel nauseous or you vomit. ? You are constipated. Constipation is when you have: ? Fewer bowel movements in a week than normal. ? Difficulty having a bowel movement. ? Stools that are dry, hard, or larger than normal. ? Your arm tingles or feels numb. ? Your pain gets worse, even after taking pain medicine. ? You have more redness, swelling, or pain around your incision. ? You have more fluid or blood coming from your incision. ? Your incision feels warm to the touch. ? You have pus or a bad smell coming from your incision. ? You have a fever. Get help right away if: ? Your shoulder joint moves out of place. ? Your incision comes apart. This information is not intended to replace advice given to you by your health care provider. Make sure you discuss any questions you have with your health care provider. Document Revised: 11/17/2016 Document Reviewed: 09/27/2016 Elsevier Patient Education ? 2019 [employer] [facility] XR Shoulder 1 View Righton 1 XR Shoulder 1 View Right EXAM: XR Shoulder 1 View Right HISTORY: pain COMPARISON: MRI dated 11/04/2020 TECHNIQUE: AP view of the right shoulder was obtained. FINDINGS/IMPRESSION: 1. There is an acute appearing fracture through the mid right clavicle. Dedicated radiographs can be obtained. 2. Patient is status post reversal right shoulder arthroplasty. The exam is added to the stat call folder as this is an unexpected finding. Final Dictated by: Mera Andrea MD Dictated DT/TM: 01/11/21 11:56 Signed (Electronic Signature): Mera Andrea MD 01/11/21 11:59 a Technologist: Ajay PEDRAZA [facility] Progress Note - Nurseon Progress Note - Nurse Pre-op call done, instructed to arrive @ 0600 on 01-11-21, NPO after midnight, and need for ride to and from hospital-verbalized understanding. [Electronically Signed on: 01/08/2021 09:29 EDT] Wendy Soto RN [Verified on: 01/08/2021 09:29 EDT] Wendy Soto RN [facility] Coding Summaryon 12-31-2020 Coding Summary HTMLBase 64 UlltufbdASi3fRu+PGhlY WQ+EU5VFNTjZ56rfSRzhH 6QU4iCRH9KMTUROIZTXI1 EDL3brRM9KJfjI9FlitLf SuopmGJfXC61ZVb9RYY0s FptQPfazM6jbMCbP7t2Ec UgZG14yS13MDyrCZRlOsM 3LjZpbjsgbWFy S6lsKwOnfHVhChd+PHRhY mxlIHdpZHRoPScxMDAlJy JraGveWI6gVm9yTBAoXLT vbGxhcHNlOiBj j9rjHAYeGGioSM9hmZhjP 3KsvMC6DIMwn1e7Bl40bC I+OSXqEPH0yKluFPvyn49 0KcNmp7xmWSZ0 lVWlXLynWVK1H06za6N2A TFrTDRbYNI6sPH1fS7ocW zeyvmdP9TxvEOhWdZ8XEG 7zBDknP6mfOyt uniedZ3hFof+I33DHR3JF ONJWZ6AJfi0R2SsXddiwJ I+QS40DRSqPS53pFLejMA wr2izwGr6VfAl OOVeOAO6mZkhSKznd6JaR INcN72dhROjh0Q9GFPiaQ xmuCPqLhJgyVF1oN0uVRy koxans2hksoup Pssty1wvwt51jI99D88oV KseQNKsWUU1ZJQqWKKdvN opnn2rpY2xPg8+VQivg6v do6bswDo5WuKg QCUtgqPazPshBLX8i9GgF t15I1RawLwng4KpCzy4cf 69sULco0M3fOW0NQyxVLK trS8wACihFzQ2 CTSmPcEnlY08oMEvHRhlM b7puWayiQziBW2lFEEitr npZBWzfA0lZCQmdUCzcYk tOJ6iIUJdjvzr d389WzKpPTF3OUAyrTOzR 1QfvU9xDrOpBCGjXRKqC6 PxlBYnJHguH101KEaeXiN 0SYReiaRuE3La EMMvhFcoBtN2t9X6Ep0Ev 8FxyuxbXQA8PRffPHW1Py PrFlZpUbA1T3PlYtf7CGV zmVujAS1jC1Ns SHTkmxfqsiffwBD2LJCwH EEqgP41pXBiSLrpCk2qs4 X0d514NLNtMTUroQ62Wp6 udDogMTBwdCBU vX9wikgpy5ggolryBjJfI UHxBCk9YRj9SFJifPlwRh BiLBG1SsA6JRT8jNKxaG5 wxBxzgjcdlZ3c Oyc+Z70eaR9nYVW1TMY0g hgePVTbroSqUH38SC01H5 RyPjwvdGFibGU+PGRpdiB paFlnOA3pBfKj w3pgg2IkHRhgL3MvTKOeN TyuThb8ZEQyYDS5mAB6rO 8bYIYzKPrfn8S9hRX1O8S rixHlsv5os8wd IMNgOPzbG11vnUQbn5I3R SJplYO7NIDeyAfiVaLthW 93Oyc+KWBinWulq0MxJrs dk5hje8jshFr4 KgXhXQVyneObxLplPOE9c 2ZcZi87Q33eVXxhSAItPE XuXTTqWVIxdHfnno1qzY2 wIi8+PGNvbCB3 qVB4pT0kASIrCfM0UIaeS 191YlJjxCWpBujwj3fvt0 viqWs5JxSoOVZuepFcoGn pFEL0h7HnZa49 K92rWHzpTLYkNMGoXRXcR ZMawIhqke0hpI2sHz4+PC 9wj6cowj23uS80pZL+PHR gKHZ4dDplHPjl OVLlcN8tVRxuAgZ6TLKbJ oHlfT63wDToUGoyPt2kgF ztaOsvJR9aVEEzlgjww66 1AcNeb6jxTETq bCLgJToiALO4B74ys8L1M PWyWWUbXGO1xNS5zO7ojX lnbjogbGVmdDsgdmVydGl zXOjeSTjeU305 IHRvcDsnPlBhdGllbnQgT hBkTCl4W3MaKcw2HRFvrO zzHV6fpVYrVXbiBk2ssDk ppWhfKN3eLNDn rpnuw721YbRbu5fmIIQfn SSuPTshYVP1N48ru3N3ZE ZpGETfBXK9yRN6xB2clNt nbjogbGVmdDsg cxZneUqkASklZUaoI527I HRvcDsnPkJpcnRoIERhdG N9WD11HT69wPTnx9N1yXO 5L0NuJDZzxjbu hzneeDK9EKTvQDPnlP64U n1buPqhZo8lUHObHIA9FK NwkVAxS7RvrL1yStKiIOB nQXGkE6KcaGPn CRcuR985VPfdVaL7MKXdk jBoS1DfYMZtqCdxQkE1y8 G0Ro9TM8H5QY25DZ66iAR ko8H5dFH8M3Lc ANKstqgikheioIR7POWxA JVloM64Ym2ghLxyEp9zRT VgLXC6TUXsaBCrU3LseN7 yOiAjMDAwMDAw Z1QgfZPaGApqP254VZtiB bV2SWCaviBzQ7RuMYWbjW gqLoB7t2K8Kb6SWVu3JO9 1DE77fTTob9S8 tKY6P9WbBVVfpppajszqq VB3WUKkBKOdmW06Hl8azD wrDn0jXFNpXMF4IPIndGE nX7KepZ3hCiKe NHBbKSVsA4LkoZBjDXebT 391FMugWzZ5BAOygzCjX6 QuLHVupJihQjB5c6M5Vx2 ZOBAfDE48CGT2 hFW9VZ64EP51Y8KiYhjoc GFibGU+PHRhYmxlIHdpZH RoPScxMDAlJyBzdHlsZT0 yXq1tXPRdSQPt cYrocMEkObHws5scXEPzW XsvUS2eoDchT1JslBL7QN Uml7v7Ic70T29zL0EbcII +JYCatYN3rFO4 nJ6jNvSbDzG4KRslF725S tKnwQJeYixch0ldx4yyrB t9UoO1ICDabvQpnOkjMXG 4a4RvEs01V69d IHdpZHRoPSIxNSUiIHZhb Racbk9bfB4wKv2+PGNvbC I8yUB4wU0sGxHsOiX7RHu tW888UtBcjOPu Xonsu0rqz6rluFa8UfWvQ LPcikIswYfjVQR8o0QgFn 68Y4LccOcjw5UiUot4wc5 2vJXfv2B7wXT9 W3UbFXAgchdidIYxoNcgY T0fQKIjiatoLDBltZ8fGY JyT9v9IxDzMsA0ZJxaC4L qpzH8OEDwkJYy THkzWKE3K41nm2X3OLWnQ LOyZOH0dMT7qD4gcImiwn ogbGVmdDsgdmVydGljYWw gCCzxR932TCMo wYvsQNGloP8wOJOipJKij VhjOY5eOLPfxbavChbTHv TALALmOWGGUSYMY1fQZHV 4R1KfXng7TEKi jDxmXG9dtMJlAAouFr7pz QkurGacWS5dWQZmxczcRI NpzX3yONOriBRhrSihVN8 kTYLrfoxlq822 YoPjABI3NOQlbTJgG1Nkh O6fQtTaEQGvNRIwU1SwpI DwMBieK045ZYzyRkK2APL vuiCtP4UsZPFb hYdgGnU5b7E6Xq8fUa4eL P4uPPZ7EK96NH89gGIel2 K3oAN6R1SdMVBhlbgvzrq aqIO5NPCsLHXm kD92rQKhZSkoHt3ea4C6a 863ODFkYORxmM93Dm2ueH bpZAObkVTFhJ5mvrkwb1n vcjogIzAwMDAw ETe8TTh6AEOfmZuhYaYvQ FP0QnL7GCH3bDDhwK2yzV jssgoorM7mNvn+NzYgWWV njoT4V6DtFje4 KZMemCivUM3bmPWbKPksE h4eeOxuvJvcCX0kLFMihz icUUCfgN6sXGYfoJWttAp xCK2oVZTqirwi i059VjWnWWZ4FRVyiFMiC 7XfxW4kIeKnPDUyERAzO3 LwnWLnLNpeO733LRbhDlN 4UMUlmeVbP3Hp TECdyZlkSeZ3a4D0Ei7NC P0NNIT8P1QmOff6MLDzcD lxAQ9bbGCiMLleIx7qeQm jtSxkPT1xBOSc gbblRYUuiC2sGAFjtWEdn NriZT5gMQYfyfzsk141Iq OwAUI1USYneGToC1QwzH0 yOiAjMDAwMDAw V7ZkbCXtNSqiK673DMxcA gI5INRfttTiK5DjUAJwzJ nlHtO1c0M4Bp1QZKmznDD +VY11tg45Z5Nh DabmFwa7RNZaOSV0xJR5n Z4kXJGzFGpff2D0jSK2J2 YoymMqgd5rz7wlAYUmXKs tB02lvXMpy0B8 UPJorND8PCZoiPooAeOdi G93Oyc+VBUluTsif3VcHv myx6vmk7kcwQx5ObWmQUG gdmFsaWduPSJ0 k9MdHz53Q05kYNijJTUlJ SRqUZCcKJPidMsxym1ifE 9wIi8+LTIbxTQ8mKM7hR1 zTbZgJaD9MOhc Y730HpHqdZDvWbned2phy 6potXf7LwIsMWBwilXzrK twTGD7d5DxQi50D8LkzGn xk1OmOjx6ds00 xQCon0V5zGV7T9HvNMGax bndgPVvzAwbGW3vLXZwut pxZWSeoJ4vUULmQ8d7SrU mVaG5IXatV4Aw kyG1HRXjpFCwCNKydKCUp O4vqkhwr8bmkfrzOgTpYW QbPTb5QEw0PIAbxOrwEmF qXXZ5OdB7ZEI9 dUQpsP2xuOmefysepW8iL yc+FDm4e5sekIAeUJ9lwU V5DX31KF26iVOmq3L1bHR 5E0PsSADlbjck afovgHP8GILgKOIklY53H p7bqPhcCq0iTTAnMPS1MJ XnpDCoX4GsdT6wMgGbPSN lNAHkT8ZpqPWd TXhoY504GCmhQqM2CKYqm eStC6TtNMWhmAruTiG5j1 J8No9VON10ED87FV02mVV lk5I1cHZ4D1Bh YYXkytkdbhiviYX4WZZuJ QGjoQ55Mq9qsEwvCy2rOO UgWNW7USRbdKNxJ2JtrX1 yOiAjMDAwMDAw M2IejSSgBIecK750YCqjF nC2YCXiqpPaF8YhLPNllX chLxQ5f1Q1Jn2DOf68OH3 9GR97pADzn1X0 gCU0K4YfDRUaqcamgitqh AS7WDDnCHSjxG10Ws6xwT boKt2qLSWmGVY6DKJtnUN lG9OvuY5yPrAb BSPbGMQlR1ApxFZwXNrfI 169NOyqUkK9WVOjcpIxY3 GxKFArsBerKhY2b1O5Ac8 LHXnmgza4J1Cq PjwvdHI+HY16JYDdQC81t NJntQQhe3rxaIy2GsIjYN TjCWA6dWddSVxns2VdRUS jA71jqBQgl3W7 IGN (more content not included)... [facility] Consent Formson 12-25-2020 Consent Forms [id number]#1 .00OTGTIFF [facility] C MRSA Screenon 12-24-2020 C MRSA Screen Negative [facility] Comment on above: Performed By: #### 1 [id number] ####[facility] (DEFAULT)[address] [place] [address] Provider Orderson 12-24-2020 Provider Orders [id number]#1 .00OTGTIFF Normal [facility] .Auto Diff 1on 12-23-2020 Auto [place] % 8 % Normal 1-[address] [facility] Comment on above: Performed By: #### 7 [id number], [id number] ####[facility] (DEFAULT)[address] [place] [address]907 Baso Abs# 0.0 x10 Normal 0.0-0.[address] [facility] Comment on above: Performed By: #### 7 [id number], [id number] ####[facility] (DEFAULT)[address] [place] [address] 58056 Basophils/100 WBC (Bld) 0.6 % Normal 0.2-2.[address] [facility] Comment on above: Performed By: #### 7 [id number], [id number], [id number] ####[facility] (DEFAULT)[address] [place] [address] 60915 Eos Abs# 0.2 x10 Normal 0.0-0.[address] [facility] Comment on above: Performed By: #### 7 [id number], [id number], [id number] ####[facility] (DEFAULT)[address] [place] [address] 78779 Eosinophils/100 WBC (Bld) 2.0 % Normal 0.9-4.[address] [facility] Comment on above: Performed By: #### 7 [id number], [id number], [id number] ####[facility] (DEFAULT)[address] [place] [address] 49707 Lymph Abs# 1.9 x10 Normal 1.3-2.[address] [facility] Comment on above: Performed By: #### 7 [id number], [id number], [id number] ####[facility] (DEFAULT)[address] [place] [address] 89383 Lymphocytes/100 WBC (Bld) 22 % Normal 14-[address] [facility] Comment on above: Performed By: #### 7 [id number], [id number], [id number] ####[facility] (DEFAULT)[address] [place] [address] [place] Abs# 0.6 x10 Normal 0.0-0.[address] [facility] Comment on above: Performed By: #### 7 [id number], [id number], [id number] ####[facility] (DEFAULT)[address] [place] [address] 06854 Neut Abs# 5.9 x10 Normal 1.5-9.[address] [facility] Comment on above: Performed By: #### 7 [id number], [id number], [id number] ####[facility] (DEFAULT)[address] [place] [address] 60409 Neutrophils/100 WBC (Bld) 68 % Normal 44-[address] [facility] Comment on above: Performed By: #### 7 [id number], [id number], [id number] ####[facility] (DEFAULT)[address] [place] [address] Standardon 12-23-2020 eGFR Non AA >60 Invalid Interpretation Code [facility] Comment on above: Performed By: #### 7 [id number], [id number], [id number] ####[facility] (DEFAULT)[address] [place] [address] eGFR AA >60 Invalid Interpretation Code [facility] Comment on above: Result Comment: [employer] ritesh Kidney disease could be indicated at eGFRs of less than 60 ml/min/1.73m2. Kidney Failure is indicated at less than 15 ml/min/1.73m2 Performed By: #### [id number] ####[facility] (DEFAULT)[address] [place] [address] [id number] Anion gap [Moles/Vol] 16.0 mmol/L Normal 5.0-19.[address] [facility] Comment on above: Performed By: #### [id number] ####[facility] (DEFAULT)[address] [place] [address] 48588 Calcium [Mass/Vol] 9.4 mg/dL Normal 8.9-10.3 [facility] Comment on above: Performed By: #### [id number] ####[facility] (DEFAULT)[address] [place] [address] 25942 Chloride [Moles/Vol] 102 mmol/L Normal 101-[address] [facility] Comment on above: Performed By: #### [id number] ####[facility] (DEFAULT)[address] [place] [address] 67151 CO2 [Moles/Vol] 29 mmol/L Normal 21-[address] [facility] Comment on above: Performed By: #### 7 [id number], [id number], [id number] ####[facility] (DEFAULT)[address] [place] [address] Creatinine [Mass/Vol] 0.74 mg/dL Normal 0.60-1.[address] [facility] Comment on above: Performed By: #### 7 [id number], [id number], [id number] ####[facility] (DEFAULT)[address] [place] [address] 75488 Glucose [Mass/Vol] 89.0 mg/dL Normal 74.0-118.0 [facility] Comment on above: Performed By: #### 7 [id number], [id number], [id number] ####[facility] (DEFAULT)[address] [place] [address] 25834 Osmolality 287 mOsm/L Invalid Interpretation Code [facility] Comment on above: Performed By: #### 7 [id number], [id number], [id number] ####[facility] (DEFAULT)[address] [place] [address] 47826 Potassium [Moles/Vol] 3.7 mmol/L Normal 3.6-5.[address] [facility] Comment on above: Performed By: #### 7 [id number], [id number], [id number] ####[facility] (DEFAULT)[address] [place] [address] 21311 Sodium [Moles/Vol] 143.0 mmol/L Normal 136.0-144.0 [facility] Comment on above: Performed By: #### 7 [id number], [id number], [id number] ####[facility] (DEFAULT)[address] [place] [address] 62098 Urea nitrogen [Mass/Vol] 19 mg/dL Normal 8-[address] [facility] Comment on above: Performed By: #### 7 [id number], [id number], [id number] ####[facility] (DEFAULT)[address] [place] [address] Urea nitrogen/Creatinine [Mass ratio] 26.0 mg/mg High 4.6-16.[address] [facility] Comment on above: Performed By: #### 7 [id number], [id number], [id number] ####[facility] (DEFAULT)[address] [place] [address] CBC w/ Auto Diffon Erythrocyte distribution width (RBC) [Ratio] 13.2 % Normal 11.5-15.[address] [facility] Comment on above: Performed By: #### 7 [id number], [id number], [id number] ####[facility] (DEFAULT)[address] [place] [address] Hematocrit (Bld) [Volume fraction] 41.1 % High 33.7-40.[address] [facility] Comment on above: Performed By: #### 7 [id number], [id number], [id number] ####[facility] (DEFAULT)[address] [place] [address] Hemoglobin (Bld) [Mass/Vol] 13.1 g/dL Normal 11.3-15.[address] [facility] Comment on above: Performed By: #### 7 424155, [id number], [id number] ####[facility] (DEFAULT)[address] [place] [address] Instr WBC 8.6 x10 Invalid Interpretation Code [facility] Comment on above: Performed By: #### 7 [id number], [id number], [id number] ####[facility] (DEFAULT)[address] [place] [address] Man Diff? Auto Normal [facility] Comment on above: Performed By: #### 7 [id number], [id number], [id number] ####[facility] (DEFAULT)[address] [place] [address] 74127 MCH (RBC) [Entitic mass] 31 pg Normal 24-[address] [facility] Comment on above: Performed By: #### 7 842175, [id number], [id number] ####[facility] (DEFAULT)[address] [place] [address] MCHC (RBC) [Mass/Vol] 32 g/dL Normal 26-[address] [facility] Comment on above: Performed By: #### 7 [id number], [id number], [id number] ####[facility] (DEFAULT)[address] [place] [address] 61652 MCV (RBC) [Entitic vol] 98 fL Normal 81-[address] [facility] Comment on above: Performed By: #### 7 753418, [id number], [id number] ####[facility] (DEFAULT)[address] [place] [address] Platelet 267 x10 Normal 138-[address] [facility] Comment on above: Performed By: #### 7 974155, [id number], [id number] ####[facility] (DEFAULT)[address] [place] [address] Platelet mean volume (Bld) [Entitic vol] 9.9 fL Normal 6.3-10.[address] [facility] Comment on above: Performed By: #### 7 374876, [id number], [id number] ####[facility] (DEFAULT)[address] [place] [address] 67033 RBC 4.18 x10 Normal 3.70-5.[address] [facility] Comment on above: Performed By: #### 7 420901, [id number], [id number] ####[facility] (DEFAULT)[address] [place] [address] 36043 WBC 8.6 x10 Normal 3.5-10.[address] [facility] Comment on above: Performed By: #### 7 104542, [id number], [id number] ####[facility] (DEFAULT)[address] [place] [address] UA [id number] 12-23-2020 UA Amorph. 3+ Normal [facility] Comment on above: Order Comment: Urina lysis Microscopic order added on by Discern Expert Rules system. Performed By: #### 5 [id number], [id number] #### [facility] (DEFAULT) [address] [place] [address] 91877 UA Bacteria None [facility] Comment on above: Order Comment: Urina lysis Microscopic order added on by Ge[employer] Expert Rules system. Performed By: #### 5 [id number], [id number] #### [facility] (DEFAULT) [address] [place] [address] 55880 UA RBC None Seen [facility] Comment on above: Order Comment: Urina lysis Microscopic order added on by [employer] Expert Rules system. Performed By: #### 5 [id number], [id number] #### [facility] (DEFAULT) [address] [place] [address] 80316 UA WBC None Seen [facility] Comment on above: Order Comment: Urina lysis Microscopic order added on by [employer] Expert Rules system. Performed By: #### 5 [id number], [id number] #### [facility] (DEFAULT) [address] [place] [address] UA w Culture if Ind Standard on 12-23-2020 Breakpoint UA [facility] Comment on above: Performed By: #### 5 [id number], [id number] ####[facility] (DEFAULT)[address] [place] [address] 15770 Color (U) Yellow Normal [facility] Comment on above: Performed By: #### 5 [id number], [id number] ####[facility] (DEFAULT)[address] [place] [address] 07955 Culture? Not Indicated Invalid Interpretation Code [facility] Comment on above: Result Comment: Resu lt created by rule GL_MAGR_ADD_UA_CULT Result created by rule GL_MAGR_ADD_UA_CULT Result created by rule GL_MAGR_ADD_UA_CULT1 Performed By: #### 5 [id number], [id number] ####[facility] (DEFAULT)[address] [place] [address] 05632 Glucose (U) [Mass/Vol] Negative [facility] Comment on above: Performed By: #### 5 [id number], [id number] ####[facility] (DEFAULT)[address] [place] [address] 86072 Ketones Ql (U) Negative Normal [facility] Comment on above: Performed By: #### 5 [id number], [id number] ####[facility] (DEFAULT)[address] [place] [address] 11269 Micro? Indicated Invalid Interpretation Code [facility] Comment on above: Result Comment: Resu lt created by rule GL_MAGR_ADD_UA_MICRO Performed By: #### 5 [id number], [id number] ####[facility] (DEFAULT)[address] [place] [address] UA Bilirubin Negative Normal [facility] Comment on above: Performed By: #### 5 [id number], [id number] ####[facility] (DEFAULT)[address] [place] [address] 02945 UA Blood Negative Normal NEGATIVE [facility] Comment on above: Performed By: #### 5 [id number], [id number] ####[facility] (DEFAULT)[address] [place] [address] 02746 UA Clarity CLOUDY Abnormal CLEAR [facility] Comment on above: Performed By: #### 5 [id number], [id number] ####[facility] (DEFAULT)[address] [place] [address] 39789 UA Leuk Est Negative Normal NEGATIVE [facility] Comment on above: Performed By: #### 5 [id number], [id number] ####[facility] (DEFAULT)[address] [place] [address] 44033 UA Nitrite Negative Normal NEGATIVE [facility] Comment on above: Performed By: #### 5 [id number], [id number] ####[facility] (DEFAULT)[address] [place] [address] 83214 UA pH 7.[address] [facility] Comment on above: Performed By: #### 5 [id number], [id number] ####[facility] (DEFAULT)[address] [place] [address] 61188 UA Protein Negative Normal NEGATIVE [facility] Comment on above: Performed By: #### 5 [id number], [id number] ####[facility] (DEFAULT)[address] [place] [address] UA Spec Grav 1.[address] [facility] Comment on above: Performed By: #### 5 [id number], [id number] ####[facility] (DEFAULT)[address] [place] [address] UA Urobilinogen 0.2 mg/dL Normal [facility] Comment on above: Performed By: #### 5 [id number], [id number] ####[facility] (DEFAULT)[address] [place] [address] Urine Source Clean Catch Normal [facility] Comment on above: Performed By: #### 5 [id number], [id number] ####[facility] (DEFAULT)[address] [place] [address] MRI SHOULDER RT WO CONon MRI SHOULDER RT WO CON EXAM: MRI SHOULDER RT WO CON COMPARISON: Right shoulder MRI from 05/31/2019. HISTORY: Chronic right shoulder pain with worsening pain and limited range of motion. TECHNIQUE: Multiplanar and multisequence imaging of the right shoulder was performed without contrast. FINDINGS: There is artifact related to hardware in the greater tuberosity with surgical tracks in the greater tuberosity related to prior rotator cuff repair. There has been interval enlargement of a now large full-thickness tear involving the entirety of the supraspinatus and nearly the entirety of the infraspinatus. There is proximal tendon retraction of the supraspinatus and infraspinatus tendons measuring 3.5 cm to the level of the medial margin of the humeral head. There is at least mild to moderate atrophic change of the supraspinatus and infraspinatus muscles. There is mild to moderate tendinopathy of the subscapularis with articular sided fraying. No atrophic change of the subscapularis muscle is evident. There has been prior acromioplasty. There has been prior resection of the distal clavicle. Moderate subacromial and subdeltoid fluid is present. The long head of the biceps tendon is not visualized from the biceps anchor to the bicipital groove which could relate to postsurgical change or a prior full-thickness tear of the biceps tendon proximally. Low-grade articular cartilage loss involves the glenohumeral joint with a small glenohumeral joint effusion. There is irregularity and fraying of the anterior and superior labrum. No paralabral cyst is evident. No acute bony abnormality is identified. IMPRESSION: 1. Interval enlargement of a now large full-thickness tear involving the entirety of the supraspinatus and nearly the entirety of the infraspinatus. Tendon retraction measures 3.5 cm with at least mild to moderate atrophic change of the supraspinatus and infraspinatus muscles. 2. Prior rotator cuff repair as well as acromioplasty and resection of the distal clavicle. 3. There is moderate subacromial fluid suspicious for associated bursitis versus joint fluid tracking through the full-thickness rotator cuff tear. 4. The biceps tendon is not visualized from the biceps anchor to the bicipital groove which could relate to postsurgical change or a prior full-thickness tear. Electronically authenticated by: RYAN WRIGHT Date: 2020-11-04 14:53 Normal [facility] Encounters Encounter Date Encounter Type Care Provider Facility Start: 11-04-2020 End: 11-05-2020 ambulatory CHRISTOPHER HINSON Facility:[facility] Start: 07-16-2020 End: 07-16-[address] LUCILLE LIVINGSTON Facility:[facility] Payers Date Payer Category Payer Medicare [id number] 1960 Unknown [id number] 1945 Unknown [id number] 1945 Unknown [id number] [id number] Clinical Note 10-29-2021 Note Date & Type Note Facility 10-29-2021 Note HISTORY: Cervical sp ine, shoulder and neck pain (radiation) PROCEDURE: Par8o Signa HDXT 1.5. Sagittal T1, T2, STIR and axial T1 and T2 images through the cervical spine were performed without contrast administration. FINDINGS: Several millimeters spondylolisthesis throughout the cervical spine, chronic appearing moderate cervical vertebral body loss of height (C4 through C6). No vertebral body edema. Deep soft tissue inflammatory signal (bilateral C2/3 through C4/5). Unremarkable posterior fossa contents and spinal cord. C1/2 - C2/3: Normal. C3/4: Severe disc space loss. Mild left paracentral osteophyte formation. No spinal canal or neural foraminal stenosis. C4/5: Severe disc space loss. 1-2 mm retrolisthesis. Broad base osteophyte formation occupies the anterior CSF space resulting in no significant spinal cord deformity. Uncovertebral, facet joint hypertrophy results in moderate left and severe right mid and exit neural foraminal stenosis. C5/6: Severe disc space loss. 1-2 mm retrolisthesis. Broad base osteophyte formation occupies the anterior CSF space resulting in minimal cord deformity. Mild to moderate bilateral mid and exit neural foraminal stenosis. C6/7: Severe disc space loss. 2 mm retrolisthesis. Broad base osteophyte complex occupies the anterior CSF space resulting in minimal spinal cord deformity. No significant stenosis. Moderate to severe right mid and exit neural foraminal stenosis from uncovertebral hypertrophy. C7/T1: Moderate disc space loss. Mild central disc bulging. No spinal canal or neural foraminal stenosis. 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 Report reported and signed by Gee Nielsen on 11/01/[address] [place] [address] [employer] History and physical note 01-13-2021 Note Date & Type Note Facility 01-13-2021 Note [id number] 01-12-2021 Note Date & Type Note Facility 01-12-2021 Note [id number] 01-12-2021 Note Date & Type Note Facility 01-12-2021 Note [id number] 01-11-2021 Note Date & Type Note Facility 01-11-2021 Note [facility] SURGERY Clinical Discharge Summary PERSON INFORMATION Name JUAN ABDALLA Age 75 Years 1945 Sex FEMALE Language Spanish PCP LUCILLE LIVINGSTON Marital Status Med Service Ambulatory Surgery Acct# Arrival 01/11/2021 06:01:30 Visit Reason SURGERY - RIGHT TOTAL SHOULDER Acuity LOS 026 00:01 Address: [address] [place] [address] [address] [facility] [address] Comment: PROVIDER INFORMATION VITALS INFORMATION Vital Sign Triage Latest Temp Oral Temp Temporal Temp Intravascular Temp Axillary Temp Rectal 02 Sat 97 % 96 % Respiratory Rate Peripheral Pulse Rate Apical Heart Rate Blood Pressure / 75 mmHg / 71 mmHg Comment: MEDICAL INFORMATION Allergy Info: No Known Medication Allergies Prescriptions Given: acetaminophen (Tylenol Extra Strength 500 mg oral tablet) 2 tab(s) Oral Every 6 hours as needed for pain. alendronate (Fosamax 70 mg oral tablet) 1 tab(s) Oral every week. calcium-vitamin D (Caltrate 600 + D oral tablet) 1 tab(s) Oral 2 times a day. cholecalciferol (Prevagen 50 mcg (2000 intl units) oral capsule) 1 tab(s) Oral every day. ferrous sulfate (ferrous sulfate 325 mg (65 mg elemental iron) oral tablet) 1 tab Oral every day. ibuprofen (ibuprofen 200 mg oral tablet) 2 tab(s) Oral Every 6 hours as needed for fever. multivitamin (Multivitamin, generic) 2 tab(s) Oral every day., womens vitafusion multivitamin (Nature's Bounty Hair Skin & Nails oral tablet, chewable) 2 tab(s) Oral every day. oxyCODONE (oxyCODONE 5 mg oral tablet) 1 tab(s) Oral Every 6 hours as needed for pain., perscription given to pt upon discharge fo right total shoulder Medication List: Medications to Continue That Have Not Changed Other Medications acetaminophen (Tylenol Extra Strength 500 mg oral tablet) 2 tab(s) Oral Every 6 hours as needed for pain. alendronate (Fosamax 70 mg oral tablet) 1 tab(s) Oral every week. calcium-vitamin D (Caltrate 600 + D oral tablet) 1 tab(s) Oral 2 times a day. cholecalciferol (Prevagen 50 mcg (2000 intl units) oral capsule) 1 tab(s) Oral every day. ferrous sulfate (ferrous sulfate 325 mg (65 mg elemental iron) oral tablet) 1 tab Oral every day. ibuprofen (ibuprofen 200 mg oral tablet) 2 tab(s) Oral Every 6 hours as needed for fever. multivitamin (Multivitamin, generic) 2 tab(s) Oral every day. multivitamin (Nature's Bounty Hair Skin & Nails oral tablet, chewable) 2 tab(s) Oral every day. oxyCODONE (oxyCODONE 5 mg oral tablet) 1 tab(s) Oral Every 6 hours as needed for pain. Medications to Continue That Have Not Changed Other Medications acetaminophen (Tylenol Extra Strength 500 mg oral tablet) 2 tab(s) Oral Every 6 hours as needed for pain. alendronate (Fosamax 70 mg oral tablet) 1 tab(s) Oral every week. calcium-vitamin D (Caltrate 600 + D oral tablet) 1 tab(s) Oral 2 times a day. cholecalciferol (Prevagen 50 mcg (2000 intl units) oral capsule) 1 tab(s) Oral every day. ferrous sulfate (ferrous sulfate 325 mg (65 mg elemental iron) oral tablet) 1 tab Oral every day. ibuprofen (ibuprofen 200 mg oral tablet) 2 tab(s) Oral Every 6 hours as needed for fever. multivitamin (Multivitamin, generic) 2 tab(s) Oral every day. multivitamin (Nature's Bounty Hair Skin & Nails oral tablet, chewable) 2 tab(s) Oral every day. oxyCODONE (oxyCODONE 5 mg oral tablet) 1 tab(s) Oral Every 6 hours as needed for pain. Medications to Continue That Have Not Changed Other Medications acetaminophen (Tylenol Extra Strength 500 mg oral tablet) 2 tab(s) Oral Every 6 hours as needed for pain. alendronate (Fosamax 70 mg oral tablet) 1 tab(s) Oral every week. calcium-vitamin D (Caltrate 600 + D oral tablet) 1 tab(s) Oral 2 times a day. cholecalciferol (Prevagen 50 mcg (2000 intl units) oral capsule) 1 tab(s) Oral every day. ferrous sulfate (ferrous sulfate 325 mg (65 mg elemental iron) oral tablet) 1 tab Oral every day. ibuprofen (ibuprofen 200 mg oral tablet) 2 tab(s) Oral Every 6 hours as needed for fever. multivitamin (Multivitamin, generic) 2 tab(s) Oral every day. multivitamin (Nature's Bounty Hair Skin & Nails oral tablet, chewable) 2 tab(s) Oral every day. oxyCODONE (oxyCODONE 5 mg oral tablet) 1 tab(s) Oral Every 6 hours as needed for pain. Comment: Lab and Radiology Results Laboratory or Other Results This Visit (last charted value for your 01/11/2021 visit) No Laboratory or Other Results This Visit DIET & ACTIVITY Patient Activity Level: Patient Diet: Patient Activity Restrictions: DISCHARGE INFORMATION Discharge Disposition: Discharge Location: DEPART REASON INCOMPLETE INFORMATION PATIENT EDUCATION INFORMATION Instructions: Reverse Total Shoulder Replacement, Care After Follow up: With: Address: When: Huang Mclaughlin [address] [place] [address] [address] [place] [address] Business (1) 01/21/2021 10:45 AM With: Address: When: LUCILLE LIVINGSTON [address] [place] [address] [place], [place] [id number] (more content not included)... [facility] Clinical Note 07-16-2020 Note Date & Type Note Facility 07-16-2020 Note OPERATIVE NOTE OPERATION DATE: 07-16-20 ANESTHETIC: Topical. PREOPERATIVE DIAGNOSIS: Nuclear sclerotic cataract of the left eye. POSTOPERATIVE DIAGNOSIS:Same. PROCEDURE NAME:Cataract extraction with intraocular lens placement for the left eye. ESTIMATED BLOOD LOSS: Zero. COMPLICATIONS: None. PROCEDURE: The patient was brought to the Operating Room in the supine position. After proper identification, the left eye was prepped and draped in the sterile ophthalmic fashion. A paracentesis created at the 5 o'clock position. Approximately 0.1 mL of 1% Xylocaine was injected into the anterior chamber followed by Amvisc Plus. Using a 2.6 mm Keratome blade a clear corneal incision was created at the 3 o'clock limbus. A cystotome was then utilized to begin a curvilinear capsulorrhexis that was continued for 360 degrees with Utrata forceps. BSS on a 26 gauge cannula was injected beneath the anterior capsule to hydrodissect as well as hydrodelineate the lens. After ensuring mobility, phaco emulsification was performed in a conquer and divide type fashion. After all nuclear material had been removed from the eye, IA was introduced and all residual cortical material was cleaned up. Additional Amvisc Plus was injected into the posterior bag and a lens model MX60 25.0 diopters was injected and dialed into position. After ensuring centration, IA was reintroduced into the anterior chamber and all residual Amvisc Plus was removed from the eye. BSS on a 30 gauge cannula was injected into the stroma of both the clear corneal incision as well as the paracentesis to hydrate the wounds. Additional BSS was injected into the anterior chamber to pressurize the eye to approximately 20-22 mmHg by finger tension, 0.1 mL of antibiotic was injected into the anterior chamber and [facility] cell sponge was used to check the wounds to be water tight. One drop of apraclonidine and 1 drop of prednisolone acetate were placed into the eye and shield was placed over top. The patient was sent to the postoperative area in satisfactory condition to followup the following day for postoperative care. [facility] Signed and Approved by: JAZZMINE JASMINE 08/14/2020 15:39:00 [facility] Clinical Note 07-16-2020 Note Date & Type Note Facility 07-16-2020 Note HISTORY AND PHYSICAL EXAMINATION HISTORY: The patient is a 74 year-old white female with complaints of declining vision out of her left eye. She believes this began approximately 6 months ago but notes that likely has been changing for the last several years. She is bothered most notably by her ability to read. Additionally she states having difficulty at nighttime while driving because of headlights creating glare and halos. PAST OCULAR HISTORY: 1. Cataracts. 2. Dry eye syndrome. PAST MEDICAL HISTORY: Osteopenia, rotator cuff repair on the right side, gallbladder surgery, back surgery x3, breast reduction. SOCIAL HISTORY: Denies tobacco, alcohol or recreational drug abuse. SYSTEMIC MEDICATIONS: Calcium alendronate. ALLERGIES: Denies. REVIEW OF SYSTEMS: No pertinent positives. PHYSICAL EXAM: VITALS:Blood pressure is measured at 128/78 with a respiration rate of 12 and a pulse of 67. GENERAL: The patient is awake, alert and oriented x3, well-developed, well-nourished, in no acute distress. HEART:Regular rate and rhythm. LUNGS:Clear bilaterally. ABDOMEN:Soft, nontender, nondistended. EXTREMITIES: No pitting edema. OPHTHALMIC EXAM: Revealed a visual acuity of 20/40 -2 that glared to 20/100 in the right eye and 20/50 -2 that glared 20/100 in the left eye. Pupils motility, muscle balance and confrontational visual keith within normal limits bilaterally. Pressures are measured at 16 bilaterally. Slit lamp exam revealed blepharitis with a severe decrease in tear film bilaterally. Conjunctiva, cornea, anterior chamber and iris were within normal limits bilaterally. Lens status demonstrated 2-3+ nuclear sclerosis with multiple vacuole's bilaterally. FUNDUS EXAM: Revealed good view with good dilation bilaterally. Optic discs, macula, vessels, periphery and vitreous were within normal limits bilaterally. There did demonstrate some soft drusen in the macula bilaterally. ASSESSMENT / PLAN: 1. Visually significant cataract, left eye. After risks, benefits, alternatives, as well as expectations were delivered to the patient, she would like to go forward with cataract removal. She understands those risks to include, but not limited to infection, bleeding, loss of vision or loss of the eye itself. Secondly, she understands that postoperatively she is likely required to require spectacle correction for her best visual acuity. Thirdly, a complete ophthalmic exam was performed, there is not determined to be any other source of vision decline other than that of the cataract. 2. COVID-19, the patient was briefed in the office and consented for elective cataract surgery in the setting of the pandemic of coronavirus. She understands that she's at a heightened risk going into a hospital setting, however, feels that his activities of daily living are severe enough depleted by her cataracts that he is willing to incur this risk and go forward with her elective procedure. [facility] Signed and Approved by: JAZZMINE JASMINE 08/14/2020 15:39:00 [facility] Summary Purpose Family History No Family History Records FoundNo Family History Records FoundNo Family History Records Found Advance Directives No Advanced Directives Records FoundNo Advanced Directives Records FoundNo Advanced Directives Records Found Additional Source Comments INFORMATION SOURCE (unrecogn ized section and content) DATE CREATED AUTHOR 11/12/2020 [facility] DATE CREATED AUTHOR AUTHOR'S ORGANIZ ATION 01/30/2021 [facility] DATE CREATED AUTHOR AUTHOR'S ORGANIZ ATION 11/02/2021 [facility] dical Specialist FOR RECORDS PERTAINING TO PATIENTS WHO ARE OR HAVE BEEN ENROLLED IN A CHEMICAL DEPENDENCY/SUBSTANCEABUSE PROGRAM, SOME INFORMATION MAY BE OMITTED. This clinical summary was aggregated from multiple sources. Caution should be exercised in using it in the provision of clinical care. This summary normalizes information from multiple sources, and as a consequence, information in this document may materially change the coding, format and clinical context of patient data. In addition, data may be omitted in some cases. CLINICAL DECISIONS SHOULD BE BASED ON THE PRIMARY CLINICAL RECORDS. [facility] [employer] [facility]. provides no warranty or guarantee of the accuracy or completeness of information in this document.
[2024-02-19 11:53] LABS: Basophils Absolute Auto 0.1 10^3/uL (0.0-0.1); Basophils Percent Auto 0.8 % (0.2-2.0); Eosinophils Absolute Auto 0.1 10^3/uL (0.0-0.7); Eosinophils Percent Auto 1.1 % (0.9-7.0); Hematocrit 40.6 % (36.0-48.0); Hemoglobin 13.3 g/dL (12.0-16.0); Immature Granulocytes Abs Auto 0.01 10^3/uL (0.00-0.03); Immature Granulocytes Pct Auto 0.2 % (0.0-0.5); Lymphocytes Absolute Auto 1.5 10^3/uL (1.2-3.8); Lymphocytes Percent Auto 22.4 % (20.5-60.0); Mean Corpuscular HGB Conc 32.8 g/dL (29.9-35.2); Mean Corpuscular Hemoglobin 32.3 pg (26.7-34.0); Mean Corpuscular Volume 98.5 fL (81.0-99.0); Mean Platelet Volume 9.7 fL (9.5-13.5); Monocytes Absolute Auto 0.5 10^3/uL (0.3-0.8); Monocytes Percent Auto 6.8 % (1.7-12.0); Neutrophils Absolute Auto 4.5 10^3/uL (1.4-6.5); Neutrophils Percent Auto 68.7 % (43.0-75.0); Platelet Count 252 10^3/uL (150-450); Red Blood Count 4.12 10^6/uL (4.20-5.40); Red Cell Distribution Width 13.2 % (11.0-15.0); White Blood Count 6.6 10^3/uL (4.0-11.0)
[2024-02-19 12:06] LABS: Estimated Average Glucose 97 mg/dL
[2024-02-19 13:14] LABS: Alanine Aminotransferase 27 U/L (14-59); Albumin Globulin Ratio 1.3; Albumin Level 3.9 g/dL (3.4-5.0); Alkaline Phosphatase 88 U/L (46-116); Anion Gap 13.6; Aspartate Amino Transferase 23 U/L (15-37); BUN Creatinine Ratio 21.7; Bilirubin Total 0.8 mg/dL (0.2-1.0); Calcium 9.6 mg/dL (8.5-10.1); Carbon Dioxide 28.1 mmol/L (21.0-32.0); Chloride 104 mmol/L (98-107); Chol HDL Ratio 1.9; Cholesterol 220 mg/dL (<=200); Estimated GFR (African America >60 (>=60 mL/min/1.73m^2); Estimated GFR (Non-African Ame >60 (>=60 mL/min/1.73m^2); Free T3 1.39 pg/mL (2.18-3.98); Glucose 89 mg/dL (74-106); HDL Cholesterol 117 mg/dL (40-60); Potassium 3.7 mmol/L (3.5-5.1); Sodium 142 mmol/L (136-145); Thyroid Stimulating Hormone 0.734 uIU/mL (0.358-3.740); Total Protein 6.9 g/dL (6.4-8.2); Triglycerides 39 mg/dL (<=150); VLDL CHOLESTEROL 7.8 mg/dL
== END 2024-02-19 11:33 | disposition home or self-care (01) ==
LOC: LAB 11:32
PROVIDERS: PCP Family Medicine; Visit Provider Family Medicine
DX: M85.80 Other specified disorders of bone density and structure, unspecified site (principal); J43.9 Emphysema, unspecified; G47.00 Insomnia, unspecified; M48.061 Spinal stenosis, lumbar region without neurogenic claudication; E78.5 Hyperlipidemia, unspecified; R53.83 Other fatigue; R73.09 Other abnormal glucose; I10 Essential (primary) hypertension; D64.9 Anemia, unspecified
CPT/HCPCS: 36415; 80053; 80061; 83036; 83540; 84436; 84443; 84481; 85025

== ENCOUNTER 2024-10-18 13:52 | Outpatient (OUT) | payer MEDICARE, OTHER, SELFPAY ==
--- OUTSIDE RECORDS SUMMARY | 2024-03-13 11:02 | XMS_ITS ---
Author Organization [facility] in [place] Address [address] [place] [address] Care Team Providers Care Holiday Detector Operator Name Role Phone RadhamesLiam bone Primary Care Provider REASON FOR VISIT stopped Diclofenac Encounters Encounter Location Date Provider Diagnosis [facility] [address] [place] [address] 03/13/2024 Liam Mann Osteopenia M85.8 0 Assessments Encounter Date Diagnosis (ICD Code) Assessment Notes Treatment Notes Treatment Clinical Notes Section Notes 03/13/2024 Osteopenia (ICD-10 - M85.80) Plan Of Treatment Medication Medication Name Sig Start Date Stop Date Notes Diclofenac Sodium 75 MG 1 tablet as need ed Orally Twice a day 02/15/2024 Progress Notes * Carolyn MATHEWS ADOB:[birth year] (78 yo F)Acc No.[id number]:03/13/2024 Patient: Anabel CISSECarolyn :1945 A ge:78 Y S ex:Female Address:[address] [place] [id number] * Refills Stop Diclofenac Sodium Tablet Delayed Release, 75 MG, Orally, 1 tablet as needed, Twice a day * true * Date: Generated for Kathleen solomon/Royal/Wesleysmitting on: 0 10/18/2024 02:01 PM EDT
--- OUTSIDE RECORDS SUMMARY | 2024-10-18 09:00 | XMS_ITS ---
Author Organization [facility] [place] Address [address] [place] [address] Care Team Providers Care Color Buffer Name Role Phone Liam Mann Primary Care Provider Allergies No Known Allergies REASON FOR VISIT fall- knee pain, rash, rash spreading itchy used OTC not helping started 2 weeks ago, left knee fall brusing 2 weeks ago not getting better Medications Medication SIG (Take, Route, Frequency, Duration) Notes Start Date End Date Status PreserVision AREDS 2+Multi Vit - as directed Orally Active Prevagen 10 MG as directed Orally Active Citalopram Hydrobromide 20 MG TAKE 1 TABLET BY MOUTH EVERY DAY FOR 30 DAYS for 90 days Active Cytomel 5 MCG tablet on an empty stomach Orally Once a day for 30 days 02/19/2024 Active Calcium + D3 Active Triamcinolone Acetonide 0.1 % 1 application Externally bid 10/18/2024 Active Doxycycline Monohydrate 100 MG 1 capsule Orally bid for 10 days 10/18/2024 Active Prolia 60 MG/ML as directed Subcutaneous Active Social History Tobacco Use: Social History Observation Description Date Details (start date - stop date) Former Smoker NA - 05/10/1991 Tobacco Use/Smoking Question Answer Notes Patient is a former smoker When did you stop smoking? 05/10/1991 How long has it been since you last smoked? > 10 years Problems Problem Type SNOMED Code ICD Code Onset Dates Problem Status W/U Status Risk Notes Problem Contact dermatitis (48849984) Contact dermatitis (L25.9) Active confirmed Problem Pain of left knee region (finding) (86582387868848 9) Knee pain, left (M25.562) Active confirmed Vital Signs Blood pressure systolic 128 mm Hg 10/19/19 25 Blood pressure diastolic 78 mm Hg 025 Height 65 in 10/18/2024 Weight 111.8 lbs 10/18/2024 BMI 18.6 kg/m2 10/18/2024 Encounters Encounter Location Date Provider Diagnosis [facility] [address] [place] [address] 10/18/2024 Liam Hoy Contact dermatitis L25.9 and Knee pain, left M25.562 Assessments Encounter Date Diagnosis (ICD Code) Assessment Notes Treatment Notes Treatment Clinical Notes Section Notes 10/18/2024 Contact dermatitis (ICD-10 - L25.9) 10/18/2024 Knee pain, left (ICD-10 - M25.562) Plan Of Treatment Medication Medication Name Sig Start Date Stop Date Notes Triamcinolone Acetonide 0.1 % 1 application Externally bid 10/18/2024 Doxycycline Monohydrate 100 MG 1 capsule Orally bid for 10 days 10/18/2024 Pending Test Test Name Order Date XR KNEE LT 3V 10/18/2024 Progress Notes * MATHEWSОлег ASNTANAia ADOB:[birth year] (79 yo F)Acc No.[id number]:10/18/2024 UNLOCKED PROGRESS NOTE Progress Note Patient: Carolyn MANDUJANO Provider: Alyssa Mann ([facility])MD :1945 A ge:79 Y S ex:Female Date:10/18/2024 Address:[address] [place], [place] [id number] Check In:01:01 PM ESTCheck O ut:01:24 PM EST Subjective: * Chief Complaints: * 1 . Fall- knee pain, rash. 2. rash spreading itchy used OTC not helping started 2 weeks ago. 3. Left knee fall brusing 2 weeks ago not getting better. * HPI: G eneral: R foreamr - itching rash and erythem spreading kbne contsion from fall - no syncope-just trip. * Medical History: A nxiety, Cervical radiculopathy, Degenerative disc disease, Degenerative disc disease, cervical, Emphysema, Herniated lumbar disc without myelopathy, IBS (irritable colon syndrome), Insomnia, Lumbar radiculopathy, Neuroma, Osteopenia, Other cervical disc displacement, mid-cervical region, unspecified level, Spondylosis, Lumbar stenosis, Strain of rotator cuff of right shoulder, Fibrocystic breast changes, Tinea cruris. * Surgical History: b ack surgery , Gallbladder , Rotator Cuff Repair right , Dilation & Curettage , Breast Biopsy, Stereotactic 12/2011, Bilateral Breast Reduction 05/2007, Medial Branch Blocks- C4-C7 , Thoracic Radiofrequency ablation right 06/2018, Right Shoulder injection- Dr Reese 11/2018, Cervical Ablation- Dr Reese , Right Total Shoulder, Dr Mclaughlin . * Hospitalization/Major Diagno stic Procedure: s ee above . * Family History: F ather: , diagnosed with Other malignant neoplasm of unspecified site. M other: , diagnosed with Unspecified heart disease. B rother(s): , lung disease. * Social History: T obacco Use: T obacco Use/Smoking P atient is a f ormer smoker W hen did you stop smoking? 0 05/10/1991 H ow long has it been since you last smoked??> 10 years * Medications: T aking Calcium + D3 , Taking Citalopram Hydrobromide 20 MG Tablet TAKE 1 TABLET BY MOUTH EVERY DAY FOR 30 DAYS , Taking Cytomel(Liothyronine Sodium) 5 MCG Tablet tablet on an empty stomach Orally Once a day , Taking PreserVision AREDS 2+Multi Vit(Multiple Vitamins-Minerals) - Capsule as directed Orally , Taking Prevagen(Apoaequorin) 10 MG Capsule as directed Orally , Taking Prolia(Denosumab) 60 MG/ML Solution Prefilled Syringe as directed Subcutaneous , Medication List reviewed and reconciled with the patient * Allergies: N .K.D.A. Objective: * Vitals: W t:111.8lbs, Ht: 65 in, BP:128/78mm Hg, BMI:18.6Index, Ht-cm: 165.1 cm, Wt-k.71 kg. * Examination: A bdomen Exam:: M ultiple contact dermatiti patches Left kne with larger bruising - tenern inferior part of patella. Assessment: * Assessment: 1. C ontact dermatitis - L25.9 (Primary) 2 . K nee pain, left - M25.562? Plan: * Treatment: 2. K nee pain, left I maging: XR KNEE LT 3V * Preventive Medicine: Screenings/Counseling: F ALL RISK SCREENING Fall Risk Assessment: N o falls in the past year * * Electronic signature of Liam Mann MD, [id number] on 10/18/2024 at 02:01 PM EDT Sign off status: Pending Visit Status: C HK (Check Out) * Provider: Alyssa Mann ([facility])MD Date: 10/18/2024 Generated for Printi ng/Fareddyg/eTransmitting on: 10/18/2024 02:01 PM EDT History and Physical Notes * HPI (History of Present Illness) Category Sub-Category Detail Notes Category Not es General R foreamr - itching rash and erythem spreading kbne contsion from fall - no syncope-just trip Examination Category Sub-Category Detail Notes Category Not es Abdomen Exam: Multiple contact dermatiti patches Left kne with larger bruising - tenern inferior part of patella
--- OUTSIDE RECORDS SUMMARY | 2024-10-18 14:01 | XMS_ITS | Clinical Summary ---
Author Organization [facility] Address [address] [place] [address] Care Team Providers Care Director Of First Impressions Name Role Phone Unavailable Primary Care Provider Unavailabl e Allergies Active Allergy Reactions Criticality Noted Date Comments Nka [Other] 06/19/2002 Medications MULTIVITAMIN TABLET Take one(1) tablet daily. 0 0 06/19/2002 Active VITAMIN C 1000MG TABLET Take one(1) tablet daily. 0 0 06/19/2002 Active VITAMIN E 400IU SOFTGEL Take one(1) capsule daily. 0 0 06/19/2002 Active CALCIUM ANTACID TABLET CHEW 1200 mg with vit d qd 0 0 06/19/2002 Active ECOTRIN 81MG TABLET EC Take one (1) tablet daily. 0 0 06/19/2002 Active EVISTA 60MG TABLET Take one(1) tablet daily. 0 0 06/19/2002 Active ULTRAM 50MG TABLET Take one(1) tablet every 6 - 8 hours as needed. 0 0 06/19/2002 Active PREMPRO 0.625/2.5MG TABLET tri est 2.5/ prog. 100 mg- qd 0 0 06/19/2002 Active VICODIN 5/500 TABLET Take one(1) tablet every eight(8) hours as needed. 90 0 06/19/2002 Active Active Problems Problem Noted Date Diagnosed Date Postlaminectomy syndrome, lumbar region 06/20/19 03 Degeneration of lumbar or lumbosacral interverte bral disc 06/19/2002 Acquired spondylolisthesis 06/19/2002 Lumbosacral spondylosis without myelopathy 06/19 Family History Medical History Relation Comments Cancer Brother ear Ischemic Heart Disease Brother Cancer Father prostate , bone Ischemic Heart Disease Maternal Uncle Ischemic Heart Disease Mother s/p mi Cancer Paternal Grandmother breast Relation Status Comments Brother Father Maternal Uncle Mother Paternal Grandmother Social History Tobacco Use Types Packs/Day Years Used Date Smoking Tobacco: Never Alcohol Use Standard Drinks/Week Comments No 0 (1 standard drink = 0.6 oz pur e alcohol) Comments No Sex and Gender Information Value Date Recorded Sex Assigned at Not on file Legal Sex Female 9:57 AM EST Gender Identity Not on file Sexual Orientation Not on file Last Filed Vital Signs Vital Sign Reading Time Taken Comments Blood Pressure 120/82 07/12/2002 11:00 AM EST Pulse 60 07/12/2002 11:00 AM EST Temperature - - Respiratory Rate 18 07/12/2002 11:00 AM EST Oxygen Saturation - - Inhaled Oxygen Concentration - - Weight 86.2 kg (190 lb) 07/12/2002 11:00 AM EST Height 165.1 cm (5' 5 ) 07/12/2002 11:00 AM EST Body Mass Index 31.62 07/12/2002 11:00 AM EST Plan of Treatment Health Maintenance Due Date Last Done Comments Anxiety Screening 1962 Depression Screening 1962 DTaP,Tdap,Td Vaccine (1 - Tdap) 10/17/1963 Diabetes Screening 1989 Pneumococcal Vaccine: 50+ (1 of 1 - PCV) 1994 Shingrix Vaccine (1 of 2) 1994 Bone Density Screening 2009 RSV Vaccine (1 - 1-dose 75+ series) 10/17/2019 Covid-19 Vaccine (1 - 2023- season) 2023 Advance Directive Discussion 04/10/2024 Influenza Vaccine (#1) 2024 Insurance [facility]
--- OUTSIDE RECORDS SUMMARY | 2024-10-18 14:01 | XMS_ITS | Encounter Summary ---
Author Organization [facility] Address [address] [place] [address] Care Team Providers Care Applications Specialist Name Role Phone Unavailable Primary Care Provider Unavailabl e Source Comments In the event this information is protected by the Federal Confidentiality of Alcohol and Drug AbusePatient Records regulations: The Federal rules restrict any use of the information to criminally investigate or prosecute any alcohol or drug abuse patient.[facility] Encounter Details Date Type Department Care Team (Latest Contact Info) Description 12/10/2002 Prob Sum Review Provider, Darlene Social History Tobacco Use Types Packs/Day Years Used Date Smoking Tobacco: Never Alcohol Use Standard Drinks/Week Comments No 0 (1 standard drink = 0.6 oz pur e alcohol) Comments No Sex and Gender Information Value Date Recorded Sex Assigned at Not on file Legal Sex Female 9:57 AM EST Gender Identity Not on file Sexual Orientation Not on file documented as of this encounter Plan of Treatment Not on file documented as of this encounter Visit Diagnoses Not on filedocumented in this encounter
--- OUTSIDE RECORDS SUMMARY | 2024-10-18 14:01 | XMS_ITS | Encounter Summary ---
Author Organization [facility] tem Address [id number] [address] [place] [address] Care Team Providers Care Sales Administrator Name Role Phone Daryn Mann MD Primary Care Provider [phone] Reason for Visit * Reason Onset Date Comments Med Refill 04/11/2019 Encounter Details Date Type Department Care Team (Late st Contact Info) Description 04/11/[address] [facility] [address] [place] [phone] Liz Hutson RN Thoracic spondylosis without myelopathy Social History Tobacco Use Types Packs/Day Years Used Date Smoking Tobacco: Former Smokeless Tobacco: Never Alcohol Use Standard Drinks/Week Comments No 0 (1 standard drink = 0.6 oz pur e alcohol) Childcare Answer Date Recorded Childcare Unknown 09/19/2018 Employment Answer Date Recorded Employment Unknown 09/19/2018 Comments No Sex and Gender Information Value Date Recorded Sex Assigned at Not on file Legal Sex Female 11:59 AM EDT Gender Identity Not on file Sexual Orientation Not on file documented as of this encounter Miscellaneous Notes * Telephone Encounter - Liz Hutson RN - 04/11/2019 3:17 PM EST Last OV: 03/05/19 Next OV: 04/23/19 OARRS appropriate: Yes Last UDS: NA Pharmacy: [facility] Hutson RN 04/11/19 1519 documented in this encounter Plan of Treatment Not on file documented as of this encounter Visit Diagnoses Diagnosis Thoracic spondylosis without myelopathy documented in this encounter Care Teams Sales Administrator Relationship Specialty Start Date End Date Daryn Mann MD PCP - General 02/01/17 documented as of this encounter
--- OUTSIDE RECORDS SUMMARY | 2024-10-18 14:01 | XMS_ITS | Clinical Summary ---
Author Organization [employer] [facility] tem Address [id number] [address] [place] [address] Care Team Providers Care Ignition Specialist Name Role Phone Daryn Mann MD Primary Care Provider [phone] Allergies No known active allergies Medications alendronate (FOSAMAX) 70 mg tablet Take 70 mg by mouth every 7 days. Take in the morning with a full glass of water, on an empty stomach, and do not take anything else by mouth or lie down for the next 30 min. Active MULTIVIT-MINERAL S/FERROUS FUM (MULTI VITAMIN ORAL) Take by mouth. Active calcium carbonate-vitami n D3 600 mg(1,500mg) -800 units tablet Take 1 tablet by mouth daily. Active acetaminophen (TYLENOL) 500 mg tablet Take 500 mg by mouth every 6 (six) hours as needed for pain. Active ibuprofen (ADVIL,MOTRIN) 200 mg tablet Take 200 mg by mouth every 6 (six) hours as needed for pain. Takes 2 to 3 tabs PRN Active albuterol (PROVENTIL HFA;VENTOLIN HFA) 90 mcg/actuation inhaler Inhale 2 puffs every 6 (six) hours as needed for wheezing. Active pregabalin (LYRICA) 50 mg capsuleIndicatio ns:Thoracic spondylosis without myelopathy Take 1 capsule (50 mg total) by mouth nightly. 30 capsule 2 0 Active Active Problems Problem Noted Date Diagnosed Date Primary osteoarthritis of right shoulder 019 Overview (11/06/2018): Added automatically from request for surgery [id number] Localized osteoarthritis of right shoulder 08/02 Overview (08/02/2018): Added automatically from request for surgery [id number] Thoracic spondylosis without myelopathy 07/26/19 18 Overview (07/25/2017): Added automatically from request for surgery [id number] Cervical disc displacement 06/01/2017 Overview (06/01/2017): Added automatically from request for surgery [id number] Cervical spondylosis without myelopathy 03/21/20 17 Overview (03/21/2017): Added automatically from request for surgery [id number] Spondylosis of cervical rosalee on without myelopathy or radiculopathy 02/13/2017 Overview (02/13/2017): Added automatically from request for surgery [id number] Family History Medical History Relation Name Comments No Known Problems Daughter 1 No Known Problems Daughter 2 No Known Problems Daughter 3 No Known Problems Daughter 4 Cancer Father Heart disease Mother Stroke Mother Hypertension Sister Relation Name Status Comments Brother Daughter 1 Daughter 2 Daughter 3 Daughter 4 Father Mother Sister Alive Social History Tobacco Use Types Packs/Day Years Used Date Smoking Tobacco: Former Smokeless Tobacco: Never Comments:quit over 30 years ago Alcohol Use Standard Drinks/Week Comments No 0 (1 standard drink = 0.6 oz pur e alcohol) Childcare Answer Date Recorded Childcare Unknown 09/19/2018 Employment Answer Date Recorded Employment Unknown 09/19/2018 Purpose - Life Answer Date Recorded Purpose and direction in life Unknown Comments No Sex and Gender Information Value Date Recorded Sex Assigned at Not on file Legal Sex Female 11:59 AM EDT Gender Identity Not on file Sexual Orientation Not on file Last Filed Vital Signs Vital Sign Reading Time Taken Comments Blood Pressure 104/62 06/26/2019 11:20 AM EDT Pulse 72 06/26/2019 11:30 AM EDT Temperature 36.3 C (97.3 F) 06/26/2019 9:45 AM EDT Respiratory Rate 18 06/26/2019 11:30 AM EDT Oxygen Saturation 92% 06/26/2019 11:30 AM EDT Inhaled Oxygen Concentration - - Weight 67.6 kg (149 lb) 06/26/2019 6:28 AM EDT Height 165.1 cm (5' 5 ) 06/26/2019 6:28 AM EDT Body Mass Index 24.79 06/26/2019 6:28 AM EDT Plan of Treatment Health Maintenance Due Date Last Done Comments Depression Screening 1957 Tobacco Screening 1957 DTaP,Tdap and Td Vaccines (1 - Tdap) 10/17/1963 Zoster (Shingles) Vaccine (1 of 2) 1994 Fall Risk Screening 2009 Influenza Vaccine 12/09/2024 03/18/2019 Medical Devices Implanted Type Area Bottom Brusher Device Identifier Shelf Expiration Date Model / Serial / Lot Anch Sut 5.5mm Multifix S Ult Rpl [id number] - Sna - [id number] Implanted:Qt y: 1 on 06/26/2019 by Huang Mclaughlin DO at [facility] [place] Right: Shoulder [employer] 03/23/2022 [id number] / [id number] / [id number] Mesh Srg Clgn Rcnst Scfld Med - Sna - [id number] Implanted:Qt y: 1 on 06/26/2019 by Huang Mclaughlin DO at [facility] Mesh Right: Shoulder [employer] 02/18/2022 [id number] / [id number] / [id number] Anch Bn 3 W Ascp Dlv Sys - Sna - [id number] Implanted:Qt y: 1 on 06/26/2019 by Huang Mclaughlin DO at [facility] Other Implant Right: Shoulder [employer] 03/13/2022 [id number] / [id number] / [id number] Insurance MEDICARE [facility] Care Teams Ignition Specialist Relationship Specialty Start Date End Date Daryn Mann MD PCP - General 02/01/17
--- OUTSIDE RECORDS SUMMARY | 2024-10-18 14:01 | XMS_ITS | Encounter Summary ---
Author Organization [facility] [employer] [facility] tem Address [id number] [address] [place] [address] Care Team Providers Care Napkin Band Wrapper Name Role Phone Daryn Mann MD Primary Care Provider [phone] Reason for Visit * Reason Onset Date Comments Med Refill 05/24/2018 Lyrica Encounter Details Date Type Department Care Team (Late st Contact Info) Description 05/24/2018 Refill [facility] [address] [place] [address] Carolyn Lee, SCHOOL ADJUSTMENT COUNSELOR-SENIOR INTERNATIONAL TAX MANAGER [address] [address] Thoracic spondylosis without myelopathy Social History Tobacco [...] encounter Miscellaneous Notes * Telephone Encounter - Carolyn Matthews RN - 05/24/2018 1:39 PM EST Patient leaves message requesting Lyrica refill. States she will be out today. Last seen 09/07/17. Attempted to call patient to schedule OV - no answer - left message. Carolyn Matthews RN 05/24/18 1342 * Telephone Encounter - SHEFALI Simental - 05/24/2018 1:39 PM EST Ok for 2 week supply. Needs visit though * Telephone Encounter - Liz Hutson RN - 05/24/2018 1:39 PM EST Two week RX completed, called in to [facility]. TC to patient, aware of provider's response. Appointment made for 05/31/18. Liz Hutson RN 05/25/18 0942 * Telephone Encounter - Liz Hutson RN - 05/24/2018 1:39 PM EST 11:05 AM Called into [employer] Hutson RN 05/25/18 1105 documented in this encounter Plan of Treatment Not on file documented as of this encounter Visit Diagnoses Diagnosis Thoracic spondylosis without myelopathy documented in this encounter Care Teams Napkin Band Wrapper Relationship Specialty Start Date End Date Daryn Mann MD PCP - General 02/01/17 documented as of this encounter
--- OUTSIDE RECORDS SUMMARY | 2024-10-18 14:01 | XMS_ITS | Encounter Summary ---
Author Organization [facility] tem Address [facility] [place] [id number] [address] [place] [address] Care Team Providers Care Hemodialysis Rn Name Role Phone Daryn Mann MD Primary Care Provider [phone] Reason for Visit * Reason Comments Med Refill Encounter Details Date Type Department Care Team (Late st Contact Info) Description 03/18/2018 Refill [facility] [address] [place] [id number] Matthew Reese MD [address], [place] [id number] Thoracic spondylosis without myelopathy Social History Tobacco [...] encounter Miscellaneous Notes * Telephone Encounter - Matthew Reese MD - 03/18/2018 10:33 AM EST We do not accept refill requests from the pharmacy. The patient needs to call and request a refill. documented in this encounter Plan of Treatment Not on file documented as of this encounter Visit Diagnoses Diagnosis Thoracic spondylosis without myelopathy documented in this encounter Care Teams Hemodialysis Rn Relationship Specialty Start Date End Date Daryn Mann MD PCP - General 02/01/17 documented as of this encounter
--- OUTSIDE RECORDS SUMMARY | 2024-10-18 14:02 | XMS_ITS | Patient Health Record ---
Author Organization [facility] in [place] Address [address] [place] [address] Care Team Providers Care Law Reporter Name Role Phone Liam Mann Primary Care Provider [phone] Henna Rodriguez Unavailable [phone] Allergies No Known Allergies Results Component Value Reference Range Notes CBC AUTO DIFF Reviewed date:02/19/2024 01:25:02 PM Interpretation: Performing Lab: Notes/Report: [facility] , White Blood Count 6.6 4.0-11.0 10 3/uL Red Blood Count 4.12 4.20-5.40 10 6/uL Hemoglobin 13.3 12.0-16.0 g/dL Hematocrit 40.6 36.0-48.0 % Mean Corpuscular Volume 98.5 81.0-99.0 fL Mean Corpuscular Hemoglobin 32.3 26.7-34.0 pg Mean Corpuscular HGB Conc 32.8 29.9-35.2 g/dL Red Cell Distribution Width 13.2 11.0-15.0 % Platelet Count 252 150-450 10 3/uL Mean Platelet Volume 9.7 9.5-13.5 fL Neutrophils Percent Auto 68.7 43.0-75.0 % Lymphocytes Percent Auto 22.4 20.5-60.0 % Monocytes Percent Auto 6.8 1.7-12.0 % Eosinophils Percent Auto 1.1 0.9-7.0 % Basophils Percent Auto 0.8 0.2-2.0 % Immature Granulocytes Pct Auto 0.2 0.0-0.5 % Neutrophils Absolute Auto 4.5 1.4-6.5 10 3/uL Lymphocytes Absolute Auto 1.5 1.2-3.8 10 3/uL Monocytes Absolute Auto 0.5 0.3-0.8 10 3/uL Eosinophils Absolute Auto 0.1 0.0-0.7 10 3/uL Basophils Absolute Auto 0.1 0.0-0.1 10 3/uL Immature Granulocytes Abs Auto 0.01 0.00-0.03 10 3/uL Performing Lab: see note ML - [facility] GLYCOHEMOGLOBIN A1C Reviewed date:02/19/2024 01:25:02 PM Interpretation: Performing Lab: Notes/Report: [facility] , Glycohemoglobin A1C 5.0 4.5-6.2 % > 7.0 ADA RECOMMENDED LIMIT 4.0 - 6.0 ACTION SUGGESTED ADA THERAPEUTIC TARGET < 7.0 Estimated Average Glucose 97 Performing Lab: see note ML - [facility] IRON Reviewed date:02/19/2024 01:25:02 PM Interpretation: Performing Lab: Notes/Report: [facility] , Iron 71.0 50.0-170.0 ug/dL Performing Lab: see note ML - [facility] TSH Reviewed date:02/19/2024 01:25:02 PM Interpretation: Performing Lab: Notes/Report: [facility] , Thyroid Stimulating Hormone 0.734 0.358-3.740 u IU/mL Performing Lab: see note - [facility] T4 Reviewed date:02/19/2024 01:25:02 PM Interpretation: Performing Lab: Notes/Report: [facility] , T4 Thyroxine 7.70 4.80-13.90 ug/dL Performing Lab: see note - [facility] PROF 14(COMP METB) Reviewed date:02/19/2024 01:25:02 PM Interpretation: Performing Lab: Notes/Report: [facility] , Sodium 142 136-145 mmol/L Potassium 3.7 3.5-5.1 mmol/L Chloride 104 98-107 mmol/L Carbon Dioxide 28.1 21.0-32.0 mmol/L Anion Gap 13.6 Glucose 89 74-106 mg/dL Blood Urea Nitrogen 18.0 7.0-18.0 mg/dL Creatinine 0.83 0.55-1.02 mg/dL Estimated GFR ( Farrah >60 >=60 mL/min/1.73m 2 Estimated GFR (Non- Carrie >60 >=60 mL/min/1.73m 2 BUN Creatinine Ratio 21.7 Calcium 9.6 8.5-10.1 mg/dL Bilirubin Total 0.8 0.2-1.0 mg/dL Aspartate Amino Transferase 23 15-37 U/L Alanine Aminotransferase 27 14-59 U/L Alkaline Phosphatase 88 46-116 U/L Total Protein 6.9 6.4-8.2 g/dL Albumin Level 3.9 3.4-5.0 g/dL Globulin 3.0 Albumin Globulin Ratio 1.3 Performing Lab: see note ML - [facility] LIPID PROFILE Reviewed date:02/19/2024 01:25:02 PM Interpretation: Performing Lab: Notes/Report: [facility] , Triglycerides 39 <=150 mg/dL Cholesterol 220 <=200 mg/dL HDL Cholesterol 117 40-60 mg/dL <40 mg/dl - HIGH CARDIOVASCULAR RISK > or =60 mg/dl - LOW CARDIOVASCULAR RISK LDL Cholesterol Calculated 96.0 100-129 mg/dl NEAR OR ABOVE OPTIMAL >190 mg/dl VERY HIGH 160-189 mg/dl HIGH 130-159 mg/dl BORDERLINE HIGH <100 mg/dl OPTIMAL VLDL CHOLESTEROL 7.8 Chol HDL Ratio 1.9 3.3 - 4.4 LOW RISK 7.1 - 11.0 MODERATE RISK >11.0 HIGH RISK 4.4 - 7.1 AVERAGE RISK Performing Lab: see note ML - [facility] FREE T3 Reviewed date:02/19/2024 01:25:02 PM Interpretation: Performing Lab: Notes/Report: [facility] , Free T3 1.39 2.18-3.98 pg/mL Performing Lab: see note ML - [facility] Reason For Referral No Information Medications Medication SIG (Take, Route, Frequency, Duration) [...] since you last smoked? > 10 years Alcohol Screen (Audit-C) Question Answer Notes Did you have a drink containing alcohol in the p ast year? No Points 0 Interpretation Negative AUDIT-C (Standard) Question Answer Notes Did you have a drink containing alcohol in the p ast year? No Points 0 Interpretation Negative Problems Problem Type SNOMED Code ICD Code Onset Dates Problem Status W/U Status Risk Notes Problem Degenerative disc disease (08272948) Degenerative disc disease (722.6) Active confirmed Problem Anxiety (65415154) Anxiety (F41.9) Active confi rmed Problem Osteopenia (175083693) Osteopenia (M85.80) Active confirmed Problem Insomnia (303522112) Insomnia (G47.00) Active confirmed Problem Degeneration of cervical intervertebral disc (09871190) Degenerative disc disease, cervical (M50.30) Active confirmed Problem Sinusitis (34943990) Sinusitis (J32.9) Active confirmed Problem Pain of left knee region (finding) (154535912411468) Knee pain, left (M25.562) Active confirmed Problem Spondylosis (1029489) Spondylosis (M47.9) Active confirmed Problem Contact dermatitis (12266680) Contact dermatitis (L25.9) Active confirmed Problem Acute sinusitis (69288613) Acute sinus infection (J01.90) Active confirmed Problem Emphysema (36690352) Emphysema (J43.9) Active confirmed Problem Irritable bowel syndrome (79795001) IBS (irritable colon syndrome) (K58.9) Active confirmed Problem Lumbar spinal stenosis (92663940) Lumbar stenosis (M48.061) Active confirmed Vital Signs Temperature 98.4 degrees Fahrenheit 02/01/2024 Blood pressure diastolic 78 mm Hg 10/18/2024 Height 65 in 10/18/2024 Blood pressure systolic 128 mm Hg 10/18/2024 Weight 111.8 lbs 10/18/2024 BMI 18.6 kg/m2 10/18/2024 Encounters Encounter Location Date Provider Diagnosis [facility] [address] [place] [address] 02/01/2024 Liam Mann [facility] [address] [place] [address] 02/19/2024 Liam Ricciy [facility] [address] [place] [address] 03/13/2024 Liam Hoy Osteopenia M85.[id number] [place] [address] 02/01/2024 Henna Longmer Sinusitis J32.[address] [address] 02/15/2024 Liam Mann Osteopenia M85.80 ; Emphysema J43.9 ; Insomnia G47.00 and Lumbar stenosis M48.061 [address] [place] [address] 10/18/2024 Liam Mann Contact dermatitis L25.9 and Knee pain, left M25.562 Assessments Encounter Date Diagnosis (ICD Code) Assessment Notes Treatment Notes Treatment Clinical Notes Section Notes 02/15/2024 Osteopenia (ICD-10 - M85.80) 02/15/2024 Emphysema (ICD-10 - J43.9) 02/01/2024 Sinusitis (ICD-10 - J32.9) OTC meds for comfort continue monitor sx, if worsen, change notify office sx mild, do not warrant COVID, flu, strep testing 10/18/2024 Contact dermatitis (ICD-10 - L25.9) 10/18/2024 Knee pain, left (ICD-10 - M25.562) 03/13/2024 Osteopenia (ICD-10 - M85.80) 02/15/2024 Insomnia (ICD-10 - G47.00) 02/15/2024 Lumbar stenosis (ICD-10 - M48.061) Plan Of Treatment Pending Test Test Name Order Date CMP (COMPLETE METABOLIC PANEL) 3 CMP (COMPLETE METABOLIC PANEL) 4 HEMOGLOBIN A1C (GLYCO) 10/21/2022 HEMOGLOBIN A1C (GLYCO) 02/15/2024 IRON, TOTAL 02/15/2024 IRON, TOTAL 10/21/2022 LIPID PANEL (CHOL/TRIG/HDL/LDL) 10/22/19 23 LIPID PANEL (CHOL/TRIG/HDL/LDL) 02/15/20 24 CBC WITH DIFF 02/15/2024 CBC WITH DIFF 10/21/2022 VITAMIN D, 25 LEVEL (TOTAL) 10/21/2022 DEXA Axial Skeleton (hips, pelvis, spine )* 10/21/2022 Insulin Level 10/21/2022 XR KNEE LT 3V 10/18/2024 THYROID PANEL (T4/TSH/FREE T3) 3 THYROID PANEL (T4/TSH/FREE T3) 4 MM screening mammo BI 02/15/2024 Insurance Providers Payer Name Payer Address Payer Phone Subscriber Number Group Number Insured Name Patient Relationship to Insured Coverage Start Date Coverage End Date [place] [address] [place] [address] [phone] [id number] Carolyn Mathews Self - patient is the insured [employer] [id number] [place] [address] [id number] Carolyn Mathews Self - patient is the insured Medical (General) History Medical History History ICD Code Anxiety F41.9 Cervical radiculopathy M54.12 Degenerative disc disease 722.6 Degenerative disc disease, cervical M50. 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 IBS (irritable colon syndrome) K58.9 Insomnia G47.00 Lumbar radiculopathy M54.16 Neuroma D36.10 Osteopenia M85.80 Other cervical disc displacement, mid-ce rvical region, unspecified level M50.220 Spondylosis M47.9 Lumbar stenosis M48.061 Strain of rotator cuff of right shoulder S46.011A Fibrocystic breast changes N60.19 Tinea cruris B35.6 Surgical History Surgery Date(Month/Year) Thoracic Radiofrequency ablation right 0 06/2018 Medial Branch Blocks- C4-C7 Right Shoulder injection- Dr Reese 11/27 19 Bilateral Breast Reduction 05/2007 Breast Biopsy, Stereotactic 12/2011 Dilation & Curettage Rotator Cuff Repair right Gallbladder back surgery Right Total Shoulder, Dr Mclaughlin Cervical Ablation- Dr Reese Hospitalization History Reason Date(Month/Year) see above
--- NOTE | 2024-10-18 14:13 | XR_ITS ---
The [address] [address] Patient Name: JUAN ABDALLA MRN: [id number] date: 1945 Sex: F Assigned Patient Location: LAB Current Patient Location: LAB Accession/Order Number: [id number] Exam Date: 10/18/2024 15:37 Report Date: 10/18/2024 15:39 At the request of: LUCILLE LIVINGSTON MD Procedure: XR knee LT 3V XR knee LT 3V 10/18/2024 2:34 PM SIGNS AND SYMPTOMS: Fall, left knee pain PROTOCOL: Frontal, lateral, and oblique radiographs of the left knee COMPARISON: None FINDINGS: There is a vertically oriented fracture along the lateral aspect of the patella which is minimally displaced. There is an accompanying joint effusion. There is narrowing of the weightbearing and patellofemoral joint spaces. 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 XR/XR knee LT 3V IMPRESSION: There is a vertically oriented fracture along the lateral aspect of the patella which is minimally displaced. There is an accompanying joint effusion. Impression dictated by: Peng Huitron M.D. 10/18/2024 3:39 PM Dictation Location: [place] [address] Electronically authenticated by: [id number] Y Date: 10/18/2024 15:39
--- OUTSIDE RECORDS SUMMARY | 2024-10-18 14:19 | XMS_ITS | CCD ---
Author Organization [facility] Care Team Providers Care Claims Director Name Role Phone CHRISTOPHER HINSON Consulting Unavailable [...] Finalized Date/Time: 01/25/21 12:23:07 Pt. Name: JUAN ABDALLA D.O.B./Sex: 1945 FEMALE Med Rec #: [id number] Physician: Huang Mclaughlin DO Financial #: [id number] Pt. Type: D Room/Bed: / Admit/Disch: 01/11/21 [...] Role Performed Surgeon - Primary Anesthesiologist of Tong Hooker Record Time In 01/11/21 07:38:00 01/11/21 07:38:00 [...] Leigh-Ann CST Johnson-Williams, Regina CST Role Performed Industrial Truck Driver Industrial Truck Driver Scrub Personnel Time In 01/11/21 07:38:00 01/11/21 [...] Right Hand, N (more content not included)... [facility] Coding Summaryon 01-15-2021 Coding Summary HTMLBase 64 TdkrdoayPZx1nDy+PGhlY WQ+UZ5SIBKcA63foBJimO 4OW1gYPT9BUSWSFXWAAX1 XRY7uqYG2VPkuQ8JwkwJj YxmjcGSfFO84WNb4JIU4n IgwOVadwG4syJApJ1m6Rm PaPY37cG08JYefCHWrZrI 3LjZpbjsgbWFy Z0mkAqPkyAEjOma+PHRhY mxlIHdpZHRoPScxMDAlJy NadKlqEY1wSn8sKOJlRWR vbGxhcHNlOiBj k7bwGCKcOGnuKD5zcFhoT 6RnbBK2MLKbb7f7Ch40cX I+NEZfMRC1ySclQNefg04 2NxQdd5frVKM5 sFJqEIepYPO9F98kp5F5W LBeQPCvRKR0vYC6xG7euT jsqizpH7IbiTWxCtQ0GMF 3hQVdhQ7ufPhj tuywwO7rTfe+R16EVE1PJ WCESI9KFwt8T2JmUbxpjN I+BC13CLStHQ11nSQqzTR an5hmoBu7FqLc GJAvRHX1lYvtNXdxr4BoI TZkR52hlLSde9Q7HRIqrR hopJFcVeXhcIS1dW4uTVz btoulh1jpcnft Voqro0hdji20uM25K70gQ KubFIEbANP5JDYvTVFsbB fsnu6aoG6kXp4+HVsmq4p qx2zcjIi2NnEx SUZpnpMswKiiPSX1h7UaW l22Q1HeaVaiy4YfEmv7iz 13fJEjl1R0oYV3SUftAZW tpB8rBSswBlW0 URYtCzPayC25hWNbJEqhE d8iiKotzAeuEB3bSXHtpq iiFOSmrQ4xEJUxcUIkeUj vDF3xICBlfcgw v390KrFpZBP2FHNqxPEnT 9SfuQ3jGeReBSYfUUMiV5 XgqXKyGWhzZ514ZBkdEkK 6URMfaeNqG6Zb JPNujOpxJhS0b3N5Oh8On 6LudpadTIZ3CIdpAQPnWn Z0LkSoLpA7H8HzGra7VLB bpXxyMX9xA4Kz FUEvnjbsuiasnJQ6RJGuZ NQpzP96lSWgPKxqKt2dl9 F9g326HTQjYRTikU60Lo2 udDogMTBwdCBU sY6saqitk7pmxdptIaRjE ZUjMRi5LXs6KCEstYyxLc ElMJX6YxU1VSZ3lIMtoU3 urJomtsvapK9u Oyc+V70owI4xSYU2RRL2h foeXWLudaNiGJ22YL67C2 RyPjwvdGFibGU+PGRpdiB vuJelWG3dGkJj y1som8TaFTxiK1QvKQVcX EzzYla9TJRxUIZ3hOB0pQ 4eJKMwALhsz2R1nWQ7J2J surPdmy7ij9qj HCCpSPkvV95chOAtn3L0I FBkzGY4WTVaaRqgKpCubK 93Oyc+RKLtaHvpa6YzRul bk0inf3awcOo3 QwYjGIZsniAlnLwuODV6y 9BiNr68P58jJTroBATxBE NvBGRlXCTmtHnind4hjV9 wIi8+PGNvbCB3 aWR9zY7wKBLvRfW4RLkaZ 131TaXlcAXjMtdua8wcs5 psjIp5DbLxVUIdfuAypXa dXHZ9c5ZhUr37 Y87tLDbxVYPrLWNhNSTiW QAdmIvzay0twA3qIk2+PC 1gc6hinu21qV32fLD+PHR sOZM8iNyaPJne VLCneR9kPHyyQjS0PJSkK lJcbM86kMFsBVhoVj3xlD rwhLunBI0fHCBlljwxt53 9OmKwb9tvJJPh pSPaAVmeEXC8C18aa0X2Q IByOWNhPDN1cEM0yM3hsR lnbjogbGVmdDsgdmVydGl hSCfdCWteV936 IHRvcDsnPlBhdGllbnQgT xRjJGp3M9VaPyy8OYLxrU pmFG8wsFBoCRbdUt3ufSa ldHhbGD7sCVBm bxogr189NvGqk9zdTFQaa RFwFNbzAFG7N54jl1K7TY IcGMRdOWY9sDG8nK8wbDx nbjogbGVmdDsg itHzoVslZBzuMXlsH873F HRvcDsnPkJpcnRoIERhdG V7BL65CR72eLWiq9U8nLW 0R9KaOEAhvype altnhZW5IQRoPWYryZ29M w6tuWxjEz2kCXJnDRX6VX NnbZZvE5RnfA5fRsSaXPF wGWJeE8SafTGv MCmwB184IBueEjG1KEDjm iDoO5JhHAJvlWkgAeM8s8 F3Mp1LW2K6AI82EG36zIZ hh4V8uZO9B6Fw RYExqpcgqqkcaZH2BYYeH CKkjS53Ou9dfWizIx5jZQ FbEIM7VCSwfVZwN1LfdS9 yOiAjMDAwMDAw V6AxyZAuRNebE379DIutC lR2LHRqfuDrD7ApVDKjiE ytEoB1e4N5Bs9ABDx8HN4 0TO28yOVix4D8 nBW9L6IrZUZmimrwtenza VJ3LALqCESfcB39Xy2uxF xvJl7gCNDfGUT5IQBpzWS cC4JigQ8oNqXx RXFfTLAtR5ZopXPkSRasP 813WZppQnQ1GQNrsoUqQ0 RfKEUayCpmNvV2r7B4Jj4 IZNFiUA95WHO7 rWZ1EI12UO14R6TzDekai GFibGU+PHRhYmxlIHdpZH RoPScxMDAlJyBzdHlsZT0 pSk0nVCVfLMXp eZkyaELhHmGtl1kmWTUsF PhsEF3rbVtaX8PcdWW9KH Vbc1o4Pp98D66hH9HskXL +BYLyuDH1jUA9 hX1yZzLdSrL7XBajG915G mEomLPiLztbw9bll9suxL c6GkN5DVCjrdYtbZvbIFQ 4o9CzQd48X66c IHdpZHRoPSIxNSUiIHZhb Mtfxx5qbF7qBs3+PGNvbC A5eHZ2vC9pXrHlGwS9VUx wI248GoFnkBTk Wpxck3cvl6yzfIp0IzNlK FUumuWnaEkvBCH2w3TxGp 63H6HziTgor3LtGua5tu9 8lEBfz6X9wUQ2 M4FzEESplyisuXMcpLqbN U2lUCSjkiprCVXbqY6cAG UkD5n8XxMpKwR2ILgiC2C ebyE5BKKccPYy QUajBMI0X79ax8F8QCZuK BFeUMG1nCD7oU5hpZgdsc ogbGVmdDsgdmVydGljYWw aYSxyS808KXFt aJsfLBFncS3bEOTdeLOaq FwlQP5kPSDfwyjuEfhFKs RCFEApMCKNGUVYR5gBQGD 4B2GaFye9MWOf sImzOB5wmKDpPDquHz8zt NfqlTexQI4tGYHgthudNU JzmR3yMLJmuOHbpDvwJB7 pMXIvwghoy342 XkOfVMH0HEDnfTYyZ1Pal J5bIcWrJHHiUBXtI0YfpJ WyZPuvI325VBuqOnH1QZW kbgRuD5RaBYIc nZpzHhB6x0X8Na9yTd4wP I6rWXK0GL44VR04nUZwy0 F0dPO8D1YpPSGwllgxoip ojKB2TLMnITZe kE22gGBpOKimAp5ia8Z7m 715AKClGBNpqB74Bk0uzK xuYFRrxPACwH9iptipk3g vcjogIzAwMDAw RZr1WDi1NBVeyTxiVbUvQ QB1VbZ0FQK2lPNvbE9pgJ eoqdipcN8nCsj+NzYgWWV arqV2U6ShNhi3 IIAajDmzXU0oqOXsGOffM p9wzKbmrOkzMS8tEOZebl ouAOGwuG0aEIRaaCDpbLv uTM0jYDTdryxm s478GxSqBFW9HMBxqWIoN 7EtiG7yRbCtFEOnWFDqW2 YzuPMxTLlpU935SYabKxH 8QNHzulYfR7Nu DGCmtMouBlR4w2F7Ri0PB P3KDFA3T2XuCxs8ZLRgeE mpAP7hhTEeJQheGn6xfIa bvSysOK8sGVEk pqrwUOKvyI9lQFNunPXlw GbhLZ1wFOBjecxta111Vg DqIMN3AGHxmKQjR0VkxJ8 yOiAjMDAwMDAw Z8XcgCXoBRpjE115XCieE jW4BAUwbcInL7ZgGAFnvH mcGuN6d2T1Ao0PRXlmI4Q mZ2SxyAvuoYL+ MK67pi45W9GnQfonSuh1W DMvGFZ2jFR0lJ7mPXUgFR zqh4N6gWX4Q2GvihPzlw3 fs4mnNEQfBKcx L10stYQjl5Z5ITYpwNN2E KOblJgeGpWosU88Zav+PG HmxCbcj0FdVsmon6wti0m weHn3AmOwLHAw qoPruYnnMLY1i9CyJr70S 29sIHdpZHRoPSIzMCUiIH YzqErdct5ykA7pIb5+PGN jgCJ7eIL6hC1s QlJpKmW9YIlgO703BwKmz VXuAvpwh8hhg9jspZq6Pr SzRGKymvZqoYunMKM9q1Z pEa79X4VcqKhm l8PwWfy9mx41qYLce2S1r FM1P9GiNZQsysuadWYqeN vwCS9hYYQvayhcDZNqlE7 tPPHaU0m1NoDw PlG4BUfpU1VxquC7YVIjb HRyOIZfpLUUzF1rkcgfz4 pjxktkDaQtTOXhVCl6GHe 0LWFsaWduOiBs DKL4YgV2KZQ5fCVrtZ3eh ParwmtbpS3uEzk+UGh5c2 mxvNXnRL0ydUC3RI07ES0 8nGGxo8O9xZW8 V7GyDZOjckxyxjmvmGU7U AUlLRGsfV90Lu6ijSwdSn 3sGFUjTOD9MBTpmLBrT0J bsP7yNzXlMYAh BLVzV0NmgCPeKOdkJ261J FocJsQ2FREnzaLhY6BfER XeqZchXuL1e2F4Gn2TWA3 0UK13CO07cTMw v5Q8gVB3H3LpZHJnicogz cnboFW8EHTeBQFtaL37Gh 8hjDdkFt0gCDTcCUG9UBT ooPJiA4SkbO1c EsHxCEWrJJEcO7InjQAqQ GjqD165MAkoLbY5GRKfoh QbR1DpBCGzmKodEdW2j6F 9Vh1SJw84RJ02 ZV99tKDwd9K4wBN8Q3XhX RDavqhbvvwswYS5YWDpPY GufZ94Nq6dxWnmKk6yRIJ ySGD9OXDjcEJo Q6JirY7qWtGsROYgMCFnI 8OyrDCoHMvoY197AIrnVn G3TGMgxfYxG6RfNUBlgQl zWtJ8n0T6Hp9A JMivvta7K2VwImcqhOC+P Q63XEWjDH23qTRkiJHqi4 vttIu0VoJhFTXyKID0eIz vHJtaa5QpQLDh Y29 (more content not included)... Normal [facility] MAGR Intraoperative Recordon 01-14-2021 MAGR Intraoperative Record MAGR Intra-Op Record Summary Primary Physician: Nasim Egan MD Finalized Date/Time: 01/14/21 12:46:14 Pt. Name: JUAN ABDALLA/Sex: 1945 FEMALE Med Rec #: [id number] Physician: Huang Mclaughlin DO Financial #: [id number] Pt. Type: D Room/Bed: / Admit/Disch: 01/11/21 [...] Lora RN Role Performed Surgeon - Primary Tong Hooker Time In 01/11/21 07:20:00 01/11/21 07:20:00 Time [...] By: Charlette Eddy (more content not included)... [facility] Provider Orderson 01-13-2021 Provider Orders [id number]#1 [facility] 01-12-2021 Consent Forms [id number]#1 .[facility] Consent Forms [id number]#1 .[facility] Pre[facility] Recordon 1 MAGR Preoperative Record MAGR Pre-Op Record Summary Primary Physician: Huang Mclaughlin DO Finalized Date/Time: 01/12/21 13:04:04 Pt. Name: JUAN ABDALLA /Sex: 1945 FEMALE Med Rec #: [id number] Physician: Huang Mclaughlin DO Financial #: [id number] Pt. Type: D Room/Bed: / Admit/Disch: 01/11/21 [...] Signed By: Charlette Eddy RN 01/12/21 13:04 [facility] Outside Recordson 01-12-2021 Outside Records [id number]#1 .00OTGTIFF [facility] Telemetry Stripson Telemetry Strips [id number]#1 .00OTGTIFF [facility] Anesthesia Noteon 01-11-2021 Anesthesia Note Patient: JUAN ABDALLA Age: 75 years Sex: FEMALE : 1945 Associated Diagnoses: None Author: Nasim Egan MD Postoperative Information Post Operative Note: Operative Day. Anesthetic utilized: General. Health Status Allergies: Allergic Reactions (All) No Known Medication Allergies Problem list (past medical history): All Problems Arthritis / SNOMED CT 9344638 / Confirmed Osteopenia / SNOMED CT 744559214 / Confirmed Spondylosis / SNOMED CT 33813798 / Confirmed Physical Examination VS/Measurements Vital Signs [...] on: 01/11/2021 10:12 EDT] Nasim Egan MD [facility] Anesthesia Note Patient: JUAN ABDALLA Age: [...] history): All Problems Arthritis / SNOMED CT 4753078 / Confirmed Osteopenia / SNOMED CT 710709766 / Confirmed Spondylosis / SNOMED CT 87459543 / Confirmed Histories Family History: Cancer Father TIA Mother Coronary heart disease Mother Procedure history: Rotator cuff repair (205852216) in 2019 at 74 Years. Comments: 12/23/2020 13:17 ALEXAT - Charlette Eddy RN Right Rotator cuff repair (877079665) in 2003 at 58 Years. Comments: 12/23/2020 13:13 Charlette Cox RN Right shoulder Cataract extraction (44712060). History of lumbar fusion (7181806542). Laminectomy (8131157239). Cholecystectomy (78546605). Breast reduction, bilateral (013060885). Colonoscopy (545405555). Social History Electronic Cigarette/Vaping Assessment Electronic Cigarette [...] in 1989 - 12/23/2020 13:42 - Charlette dEdy RN Electronic Cigarette/Vaping 12/23/2020 Electronic Cigarette Use: [...] Oriented. Review / Management Laboratory Results Plan [place] [employer] Anesthesiologists#( A) physical status classification: Class I. Anesthetic Preoperative Plan Anesthesia: General. , Regional (Interscalene Block, for post op pain control). Anesthetic plan, risks, benefits, and alternatives discussed with the patient and/or family. Patient verbalized understanding. [Electronically Signed on: 01/11/2021 08:16 EDT] Nasim Egan MD [Verified on: 01/11/2021 08:16 EDT] Nasim Egan MD [facility] Inpatient Patient Summaryon 01-11-2021 [place] [address] Patient Discharge Instructions Name: LIANNE JUAN A : 1945 Patient Address: [address] [place] [address] Primary Care Provider: Name: LUCILLE LIVINGSTON After you are discharged if you find you have any questions, please, call [phone] ext [phone] to speak to a nurse. Discharge Diagnosis: [...] drug addiction problems; contact the [facility] 31/10 Crisis Hotline -Text 0YCUM aw 185960. If you received any narcotics, sedation, or [...] business decisions or sign any legal documents [facility] would like to thank you for allowing us to assist you with your healthcare needs. The following includes patient education materials and information regarding your injury/illness. JUAN ABDALLA has been given the following list of follow-up instructions, prescriptions, and patient education materials: Follow-up Instructions With: Address: When: Huang Mclaughlin [address] [facility] [address] [place] [address] Business (1) 01/21/2021 10:45 AM With: Address: When: LUCILLE LIVINGSTON [address] [place] [address] [place] [address] Business (1) Medications During the [...] JUAN ABDALLA/Sex: 1945 FEMALE Med Rec #: [id number] Physician: Huang Mclaughlin DO Financial #: [id number] Pt. Type: D Room/Bed: / Admit/Disch: 01/11/21 06:01:30 - Institution: PACU Case Times MAGR Entry 1 In PACU I 01/11/21 10:07:00 Discharge from PACU 01/11/21 11:07:00 I Last Modified By: Eric Eubanks RN 01/11/21 11:07:30 Finalized By: Eric Eubanks RN Document Signatures Signed By: Eric Eubanks RN 01/11/21 11:07 [facility] MAGR Postoperative Recordon 01-11-2021 MAGR Postoperative Record MAGR Phase II Record Summary Primary Physician: Huang Mclaughlin DO Finalized Date/Time: 01/11/21 14:46:15 Pt. Name: JUAN ABDALLA/Sex: 1945 FEMALE Med Rec #: [id number] Physician: Huang Mclaughlin DO Financial #: [id number] Pt. Type: D Room/Bed: / Admit/Disch: 01/11/21 [...] room [facility] Finalized By: Christie Franco RN Document Signatures Signed By: Christie Franco RN 01/11/21 14:46 Normal [facility] Operative Report - Surgeon/P art 01-11-2021 Operative [...] on: 01/11/2021 14:28 EDT] Huang Mclaughlin DO [facility] Patient Handouton 01-11-2021 Patient Handout Orthopedics [...] and water are not available, use hand office receptionist. ? Change your dressing as told by [...] urine clear or pale yellow. ? Take aofj-ptb-fvvytum or prescription medicines. ? Eat foods that are high in fiber, such as fresh fruits and vegetables, whole grains, and beans. ? Limit foods that are high in fat and processed sugars, such as fried and sweet foods. ? Take zled-rty-jygzstk and prescription medicines only as told by [...] Reviewed: 09/27/2016 Elsevier Patient Education ? 2019 [employer] [facility] XR Shoulder 1 View Righton 1 [...] MD 01/11/21 11:59 a Technologist: Ajay PEDRAZA [facility] Progress Note - Nurseon Progress Note - Nurse Pre-op call done, instructed to arrive @ 0600 on 01-11-21, NPO after midnight, and need for ride to and from hospital-verbalized understanding. [Electronically Signed on: 01/08/2021 09:29 EDT] Wendy Soto RN [Verified on: 01/08/2021 09:29 EDT] Wendy Soto RN [facility] Coding Summaryon 12-31-2020 Coding Summary HTMLBase 64 AtmybjnqOWs9zFk+PGhlY WQ+UV9UKREzP82lcPQzxZ 9GQ9pRCQ8XAHYZESQHXZ8 XGX9diGC3GJpmV8NxzyCd FtmvaIYyJB50OSb8ABP2r LvuUAwzyH3zcSAdE5k7Rj FkHV25dA82JVpbDNNqOjI 3LjZpbjsgbWFy W8koYjVpmXVrXjt+PHRhY mxlIHdpZHRoPScxMDAlJy FnlGbjAU0hPk2xPLIgKZO vbGxhcHNlOiBj t9utIXHwCEzmLV7tlHsiF 9TqhWS4OZFxk5u4Zx92oD I+JYAoSPU6jEtdMQexx18 6UcKuj2lhMYD0 sOErPWbySSV7X08vv6R2E PTsEWGiOTK4cDN3gV2zmW fnbsnvN1UtzZSuBuX4LOU 1jHAyqO6guSky zhufjK6fZnm+U25ZXW6NN LYDZU6BVeq8X5LpPoupwC I+RN50DLJfEG14eYLcfGP xf8amgZj0AxTz XLOmKHT6gDhjAXluv6UwY CHhU54qlQWst4I5JBJrsQ mtlDNbBkHlmSC2mH7hYMl aowihb5gojurc Voexp4tzgm87nM98N29dK UecIFHqUTP1FHHyBVWwtY uyfg9euG6fYw1+PRyyg0d oa2xluYi4BcLt QQGxfsDaoKekFNR7a1CpK e17L1QugEpgu2ItDeg9zr 86fGOzn5D8fBF5IAuqXZF kxH1tBYuqBuQ7 RBElMyCnmR27oBGhNCdqH c0bzOovoHjlGK6mQZVujq rvZCWbwW5vLSOntVGglMv vSM6sOJOruzba x669WlBsMMR7TMNhdGEcH 8JdcX1xSxPmGAYtWVIkI7 RotCToFKpkC267OZizDaB 7OSSdpoFuL8Ax YWHkdYjkKwU0h8T8Kw1Db 0ZygejuMGY7NHhxYEE9Ar OcNeFeQkQ8R5AnWoe2VGC nvMyvRK5zN8Dp YAZukikjsxbawPI1UVEiT LJqsZ55hDSkOBzkEx4zm9 W2y921ZSEvRWChjR97Bp1 udDogMTBwdCBU mH8znialt1huyykbGtYbM DNcEEl1NAw9TMPdlNsiId HoKYZ9IeJ0AWW6cYCpcI1 nmKdadfmkxC0k Oyc+K77prH5cAQD9XVI1b cntCLLzvfUxBN75KJ19P0 RyPjwvdGFibGU+PGRpdiB hpWnfML6kIcBn t3eeq0EfHMfkS6IyBMFsG HxzDhq1AHArZAA3nMG6dT 4jAFMbZLbor4U1aCI7N2Q tvqDupu8dc7dz JLAcIQnjP27brBAsv9Y6S VDvyLV2ZABfkCbiRhEhnG 93Oyc+MEYgpZsdn4GiMje yv9jez3moyPw2 QvCcAMPqlpIqgXmnDUZ7u 9TbDd45B19fFYxuUFKlVB KnXOSuBDNanDrezd9jfP7 wIi8+PGNvbCB3 dNZ9iB3xGOSkQvM6JSzvI 483GuJykJIpFzkes9mjf4 rphPh7FtSiEOVdsnJhoGb gWGK2n7KtPp90 I74hZEotPTWjYVYjDWSgN DWzpUypjg7eqC9xRo0+PC 5tk0razx85qJ79wWL+PHR jVKW4lWadXAno KNYjkP6eTTufGdB9EWSpK lTaqQ44iYGoNVjoGn8ghW ynsMgwDR1wZHFnpcriw04 7PcDvo5ydEWTf nMJvAPovAGW5W25fs9F3C CTuIVFbQUA8iGL3aW8nhY lnbjogbGVmdDsgdmVydGl eZXmoMKliW744 IHRvcDsnPlBhdGllbnQgT jCkVSz9N3AyBrt7GKTspK sxXN2adVZeUNxdHa8jgKo hbOwlMN2hSCXm lnbnq635XgQfg8opFYLlu JShVBwoEXC7O70yf4X6QC BzDAEkAIV6kPT3eI8txSk nbjogbGVmdDsg akUtpRirJMplGExrE503K HRvcDsnPkJpcnRoIERhdG F1NF90KP66oLUun0I5jUF 1Q6DdQGKzxmym octfwKX9PQLlYIZvkW10H a9zkRawUp7bODGfBMX2XL PahUFgT9KhpA9uNkSyCVU yRAZcH9NhxOPf BZejC668IEvrRhM8LDPpp cTbW2ByRZXuhRwpPyT6u2 V2Xh0JN5C6TW21UD80zPR em2C2aAZ8Z9Lm MKYgxisrjgljuPH7EFAdA JFfoU33Cj1ntEvcLo1nLL IpFLW2ESYayGUuD5PogL9 yOiAjMDAwMDAw K8LeiMYaYWmmL786JKsgP vO4EPWiqoSyL7XbEYNwfW bjVrG9r0D4Gb9YYXn5IW1 6RN33mHJpw7U0 qPA3Q5QyLUAjxkjaxecqa NL5ITCyFQJvlL71Fa6pdI ktPc2iUZDtVQP8FHPrlVY jE1XtjT5kEvLd QTYuNQHcR9DonRBzQUojK 864NVbbErC0HTRlozKwF4 JtKNZwmTylDmC6l3M8Ta5 IGNEkGB16EEC1 kPM8ON18XS96K7YhExejv GFibGU+PHRhYmxlIHdpZH RoPScxMDAlJyBzdHlsZT0 uBj5pPNZwNSKz yFpuhCYdTmPhu7mqVLLjP NxrQK8hzKwnR7XbpZE1PC Yyc4g4Ya23C24zH6KneYC +QHAsaJB4fCO0 lT2hGpMnAwF5EPedD881G mNcwJNtEvzut3enj4xpjH y4NqG2UQCamhUliZtaHEN 4m9PjXt42K35b IHdpZHRoPSIxNSUiIHZhb Ocywo1rdP4xXr2+PGNvbC V0jIE9iD6yDgEcEbB4JRp cB916FfHmvSFe Voejk1fem0mjpOy5PiPmZ SQmbmUmnRmrEQY8i7XcEj 96T3IeaSzcd5WaUos3io2 1aQAto8A6mPD7 V8WsRPHtymvbgUEhoQbmQ I6oLXGuslicBHTlzT9kXS NgN4q0HlMnDbH2PPmmO7M jvkG0DPGjiCHv FLoeDGA6B52uu3Z5BKOkN DPeAZY4dVD4cO4bmXqfaj ogbGVmdDsgdmVydGljYWw iFIgkU048TNUl hZzpRFGkoU3uNGIoiWZze UmiOP7aECHkthvnBfzMGp IATNPzSQYGUJSPM8lQZLJ 2N6UuFgk7DYNw bOljUQ3buGYhSIcyIv9wy KjnsCmrON3rFCOzpkehHD LtjM1iLAOwbYUoqOyaNJ5 hLDHfcxhin867 WjWkMLR3YTYcuJBlN3Gkp G4nUdJdNRDuGWFdX7CtfN ZgVPvrE322ENktOzH0OUX jeqQvC4YlIDDl yJdoIkN3b4B6Ll3qAw5hJ P8ySBP4SU31QL80qRVhk4 J2pRI1W1XaHZTonyhnfdq fmES9SDUnBOXm bE80fJUeSFnhTg0ko6Y8f 318QYMhLPQbrV21Kk8wpF dvYOMrtRYBtW3hiajkq3s vcjogIzAwMDAw NCg4XUa5ZFXtaDhxKdKcW QK0VcO0KEN2dJGkfR3ojC xoqfxpxR2jAqa+NzYgWWV vdcW4L7ZlLfr9 NIZysXmxEQ5rpUJvZYqvG l1sqSanfFakBE3iSSIsya faOTDjmO6jJARqrOUyqYe qPH5nBHBrkbah a941FzQqXXX1CKTeeENhN 3KumL4hXjYjIQUnRYAlZ4 QfzCVsMQetJ664XTohFpE 5ZDNyacOwC8Pg UCSmuRkjCpG3h8W9Lc0FH H5OUKM5A7QsOha9VEAvhH pnOY1kySJaVVehDf2qbQy zcHriJQ7xJIKv ohhyWWFqeW1wIRKqwIVpx JaiER3fERVrrhxst948Jv JmXWC3THWxoDFiC8EnwX9 yOiAjMDAwMDAw R2AolNLcUEjqG994KNbfU aN7TJRudnVwB7JhYARajW tuSrD3d4N7Aw7IGMwlcDB +EH76eo48X4Ot JmcqUeu4RXPnUJD5dIN7v S1uYYFxUSxgd4U0mCO3D2 OdozIelm0pi2zrUVDwCWn lH34haWRxw6V6 SUHcwEW4VIBgeLueQlVou G93Oyc+XAAvdJlcq0OdSi nan4fla0csoUe4CvLiOOP gdmFsaWduPSJ0 g4ZwYi36X80dNTfiPIWcZ LIgXXRsIHQzlWwcyg2vdB 9wIi8+RFFesYU0mEO6hN4 kNpOrEiF6BToe P997LlMzsVLyEowyf2efe 3rzuVa6UpTdPACzqbPxyM zpRSQ5e5XbQb17Q5KsiEq xk9CqJec4ij85 lPZzj5E8eOY6E2XiAYInn fqjaHYloPpnFZ1dJVYkbk ckANOiuJ9lZXPyP2a1SpS mNsH3XOuvT4Is kuV8ZZBmiDHpHFWvaPPVw F5munuss7mermioHwWdPX RdZHo8LCa8MVLwhTioNlZ vLKM3FfI3XII4 oTKmcU6vzBziwarcdI3xN yc+UIn9z1pjqNYiYW6xoP I2FM49CK70jEVea4M9qUD 6W3YrVNMczfbz ysgzpIF2NXBiRHAdtF33O y9bnBgrVf6wFVXcKQG1NU KyaUXqA2SwbF7kSnPgERM zTHLeQ5OtoLEu GBfwS874ZBogYjN6DNWuj cSkZ7LlRHEzhZjwQfL0r5 S8Mz0NVK61HE55ZP09gPG eu6S7dHP5C5Ih MDXiceuyyeuzgQY4JDGtY NSicF44Ig7etYrxBb8pRN HyEHH0EGGteAJuM8RaoP8 yOiAjMDAwMDAw V1JhqEXvDBhjB779KCtyY xM7EKKscpLiV9WoZDNjsU niAhX5u6Z9Zt9OGw44BS4 4LT60kGBjy8M8 bXU3C9PrJAKtrgyjhetmg WT7QTOfIHBwcD08Zd4xhJ zkCj5sMMGsQCT6OIGwyBI bU6GroU0kMwWu QDOcIWYvW5GqlMIiTKmdR 187OPigWwS5TRGbzrWrC2 ApCKOmnTiyJdH7e3I8Pl4 JYZlchxj3R3Ml PjwvdHI+BD93BJWcZF59m WMuiBQqf7iqtPr3SoCbMT YmGDV1rSqaUFldc4LgDNX pO00arCCep5G9 IGN (more content not included)... [facility] Consent Formson 12-25-2020 Consent Forms [id number]#1 .00OTGTIFF [facility] C MRSA Screenon 12-24-2020 C MRSA Screen Negative [facility] Comment on above: Performed By: #### 1 [id number] ####[facility] (DEFAULT)[address] [place] [address] Provider Orderson 12-24-2020 Provider Orders [id number]#1 .00OTGTIFF Normal [facility] .Auto Diff 1on 12-23-2020 Auto Dubois % 8 % Normal 1-12 [facility] Comment on above: Performed By: #### 7 [id number], [id number], [id number] ####[facility] (DEFAULT)[address] [place] [address] 35557 Baso Abs# 0.0 x10 Normal 0.0-0.2 [facility] Comment on above: Performed By: #### 7 [id number], [id number], [id number] ####[facility] (DEFAULT)[address] [place] [address] 27009 Basophils/100 WBC (Bld) 0.6 % Normal 0.2-2.0 [facility] Comment on above: Performed By: #### 7 [id number], [id number], [id number] ####[facility] (DEFAULT)[address] [place] [address] 40820 Eos Abs# 0.2 x10 Normal 0.0-0.4 [facility] Comment on above: Performed By: #### 7 [id number], [id number], [id number] ####[facility] (DEFAULT)[address] [place] [address] 84347 Eosinophils/100 WBC (Bld) 2.0 % Normal 0.9-4.0 [facility] Comment on above: Performed By: #### 7 114991, [id number], [id number] ####[facility] (DEFAULT)[address] [place] [address] 03977 Lymph Abs# 1.9 x10 Normal 1.3-2.9 [facility] Comment on above: Performed By: #### 7 901639, [id number], [id number] ####[facility] (DEFAULT)[address] [place] [address] 33445 Lymphocytes/100 WBC (Bld) 22 % Normal 14-48 [facility] Comment on above: Performed By: #### 7 100411, [id number], [id number] ####[facility] (DEFAULT)[address] [place] [address] 31805 Dubois Abs# 0.6 x10 Normal 0.0-0.8 [facility] Comment on above: Performed By: #### 7 064333, [id number], [id number] ####[facility] (DEFAULT)[address] [place] [address] 74353 Neut Abs# 5.9 x10 Normal 1.5-9.2 [facility] Comment on above: Performed By: #### 7 574329, [id number], [id number] ####[facility] (DEFAULT)[address] [place] [address] 82793 Neutrophils/100 WBC (Bld) 68 % Normal 44-88 [facility] Comment on above: Performed By: #### 7 846454, [id number], [id number] ####[facility] (DEFAULT)[address] [place] [id number] Standardon 12-23-2020 eGFR Non AA >60 Invalid Interpretation Code [facility] Comment on above: Performed By: #### 7 953197, [id number], [id number] ####[facility] (DEFAULT)[address] [place] [address] eGFR AA >60 Invalid Interpretation Code [facility] Comment on above: Result Comment: [employer] ritesh Kidney disease could be indicated at eGFRs of less than 60 ml/min/1.73m2. Kidney Failure is indicated at less than 15 ml/min/1.73m2 Performed By: #### 7 [id number], [id number], [id number] ####[facility] (DEFAULT)[address] [place] [address] 28934 Anion gap [Moles/Vol] 16.0 mmol/L Normal 5.0-19.0 [facility] Comment on above: Performed By: #### 7 256280, [id number], [id number] ####[facility] (DEFAULT)[address] [place] [address] 95744 Calcium [Mass/Vol] 9.4 mg/dL Normal 8.9-10.3 [facility] Comment on above: Performed By: #### 7 650625, [id number], [id number] ####[facility] (DEFAULT)[address] [place] [address] 66768 Chloride [Moles/Vol] 102 mmol/L Normal 101-111 [facility] Comment on above: Performed By: #### 7 737160, [id number], [id number] ####[facility] (DEFAULT)[address] [place] [address] 00662 CO2 [Moles/Vol] 29 mmol/L Normal 21-32 [facility] Comment on above: Performed By: #### 7 149507, [id number], [id number] ####[facility] (DEFAULT)[address] [place] [address] 58174 Creatinine [Mass/Vol] 0.74 mg/dL Normal 0.60-1.30 [facility] Comment on above: Performed By: #### 7 308710, [id number], [id number] ####[facility] (DEFAULT)[address] [place] [address] 51319 Glucose [Mass/Vol] 89.0 mg/dL Normal 74.0-118.0 [facility] Comment on above: Performed By: #### 7 905398, [id number], [id number] ####[facility] (DEFAULT)[address] [place] [address] 07601 Osmolality 287 mOsm/L Invalid Interpretation Code [facility] Comment on above: Performed By: #### 7 752586, [id number], [id number] ####[facility] (DEFAULT)[address] [place] [address] 62367 Potassium [Moles/Vol] 3.7 mmol/L Normal 3.6-5.1 [facility] Comment on above: Performed By: #### 7 436102, [id number], [id number] ####[facility] (DEFAULT)[address] [place] [address] 08347 Sodium [Moles/Vol] 143.0 mmol/L Normal 136.0-144.0 [facility] Comment on above: Performed By: #### 7 098992, [id number], [id number] ####[facility] (DEFAULT)[address] [place] [address] 66092 Urea nitrogen [Mass/Vol] 19 mg/dL Normal 8-26 [facility] Comment on above: Performed By: #### 7 589288, [id number], [id number] ####[facility] (DEFAULT)[address] [place] [address] Urea nitrogen/Creatinine [Mass ratio] 26.0 mg/mg High 4.6-16.2 [facility] Comment on above: Performed By: #### 7 843710, [id number], [id number] ####[facility] (DEFAULT)[address] [place] [address] CBC w/ Auto Diffon Erythrocyte distribution width (RBC) [Ratio] 13.2 % Normal 11.5-15.0 [facility] Comment on above: Performed By: #### 7 996776, [id number], [id number] ####[facility] (DEFAULT)[address] [place] [address] Hematocrit (Bld) [Volume fraction] 41.1 % High 33.7-40.4 [facility] Comment on above: Performed By: #### 7 710214, [id number], [id number] ####[facility] (DEFAULT)[address] [place] [address] Hemoglobin (Bld) [Mass/Vol] 13.1 g/dL Normal 11.3-15.9 [facility] Comment on above: Performed By: #### 7 [id number], [id number], [id number] ####[facility] (DEFAULT)[address] [place] [address] Instr WBC 8.6 x10 Invalid Interpretation Code [facility] Comment on above: Performed By: #### 7 [id number], [id number], [id number] ####[facility] (DEFAULT)[address] [place] [address] Man Diff? Auto Normal [facility] Comment on above: Performed By: #### 7 [id number], [id number], [id number] ####[facility] (DEFAULT)[address] [place] [address] 34253 MCH (RBC) [Entitic mass] 31 pg Normal 24-34 [facility] Comment on above: Performed By: #### 7 [id number], [id number], [id number] ####[facility] (DEFAULT)[address] [place] [address] MCHC (RBC) [Mass/Vol] 32 g/dL Normal 26-37 [facility] Comment on above: Performed By: #### 7 [id number], [id number], [id number] ####[facility] (DEFAULT)[address] [place] [address] 92274 MCV (RBC) [Entitic vol] 98 fL Normal 81-100 [facility] Comment on above: Performed By: #### 7 [id number], [id number], [id number] ####[facility] (DEFAULT)[address] [place] [address] Platelet 267 x10 Normal 138-427 [facility] Comment on above: Performed By: #### 7 [id number], [id number], [id number] ####[facility] (DEFAULT)[address] [place] [address] Platelet mean volume (Bld) [Entitic vol] 9.9 fL Normal 6.3-10.2 [facility] Comment on above: Performed By: #### 7 002609, [id number], [id number] ####[facility] (DEFAULT)[address] [place] [address] 39734 RBC 4.18 x10 Normal 3.70-5.30 [facility] Comment on above: Performed By: #### 7 219346, [id number], [id number] ####[facility] (DEFAULT)[address] [place] [address] 80516 WBC 8.6 x10 Normal 3.5-10.5 [facility] Comment on above: Performed By: #### 7 [id number], [id number], [id number] ####[facility] (DEFAULT)[address] [place] [address] UA Epnqg1eq 12-23-2020 UA Amorph. 3+ Normal [facility] Comment on above: Order Comment: Urina lysis Microscopic order added on by [employer] Expert Rules system. Performed By: #### 5 [id number], [id number] #### [facility] (DEFAULT) [address] [place] [address] 38949 UA Bacteria None [facility] Comment on above: Order Comment: Urina lysis Microscopic order added on by [facility] Expert Rules system. Performed By: #### 5 [id number], [id number] #### [facility] (DEFAULT) [address] [place] [address] 63395 UA RBC None Seen [facility] Comment on above: Order Comment: Urina lysis Microscopic order added on by [facility] Expert Rules system. Performed By: #### 5 [id number], [id number] #### [facility] (DEFAULT) [address] [place] [address] 72523 UA WBC None Seen [facility] Comment on above: Order Comment: Urina lysis Microscopic order added on by [facility] Expert Rules system. Performed By: #### 5 [id number], [id number] #### [facility] (DEFAULT) [address] [place] [address] UA w Culture if Ind Standard on 12-23-2020 Breakpoint UA [facility] Comment on above: Performed By: #### 5 [id number], [id number] ####[facility] (DEFAULT)[address] [place] [address] 31376 Color (U) Yellow Normal [facility] Comment on above: Performed By: #### 5 [id number], [id number] ####[facility] (DEFAULT)[address] [place] [address] 63377 Culture? Not Indicated Invalid Interpretation Code [facility] Comment on above: Result Comment: Resu lt created by rule GL_MAGR_ADD_UA_CULT Result created by rule GL_MAGR_ADD_UA_CULT Result created by rule GL_MAGR_ADD_UA_CULT1 Performed By: #### 5 [id number], [id number] ####[facility] (DEFAULT)[address] [place] [address] 47654 Glucose (U) [Mass/Vol] Negative [facility] Comment on above: Performed By: #### 5 [id number], [id number] ####[facility] (DEFAULT)[address] [place] [address] 37609 Ketones Ql (U) Negative Normal [facility] Comment on above: Performed By: #### 5 [id number], [id number] ####[facility] (DEFAULT)[address] [place] [address] 62013 Micro? Indicated Invalid Interpretation Code [facility] Comment on above: Result Comment: Resu lt created by rule GL_MAGR_ADD_UA_MICRO Performed By: #### 5 [id number], [id number] ####[facility] (DEFAULT)[address] [place] [address] UA Bilirubin Negative Normal [facility] Comment on above: Performed By: #### 5 [id number], [id number] ####[facility] (DEFAULT)[address] [place] [address] 08156 UA Blood Negative Normal NEGATIVE [facility] Comment on above: Performed By: #### 5 [id number], [id number] ####[facility] (DEFAULT)[address] [place] [address] 74788 UA Clarity CLOUDY Abnormal CLEAR [facility] Comment on above: Performed By: #### 5 [id number], [id number] ####[facility] (DEFAULT)[address] [place] [address] 55314 UA Leuk Est Negative Normal NEGATIVE [facility] Comment on above: Performed By: #### 5 [id number], [id number] ####[facility] (DEFAULT)[address] [place] [address] 27233 UA Nitrite Negative Normal NEGATIVE [facility] Comment on above: Performed By: #### 5 [id number], [id number] ####[facility] (DEFAULT)[address] [place] [address] 74562 UA pH 7.5 Normal [facility] Comment on above: Performed By: #### 5 [id number], [id number] ####[facility] (DEFAULT)[address] [place] [address] 52831 UA Protein Negative Normal NEGATIVE [facility] Comment on above: Performed By: #### 5 [id number], [id number] ####[facility] (DEFAULT)[address] [place] [address] UA Spec Grav 1.015 Normal [facility] Comment on above: Performed By: #### 5 [id number], [id number] ####[facility] (DEFAULT)[address] [place] [address] UA Urobilinogen 0.2 mg/dL Normal [facility] Comment on above: Performed By: #### 5 [id number], [id number] ####[facility] (DEFAULT)[address] [place] [address] Urine Source Clean Catch Normal [facility] Comment on above: Performed By: #### 5 [id number], [id number] ####[facility] (DEFAULT)[address] [place] [address] MRI SHOULDER RT WO CONon MRI SHOULDER [...] by: RYAN WRIGHT Date: 2020-11-04 14:53 Normal [facility] Encounters Encounter Date Encounter Type Care Provider Facility Start: 11-04-2020 End: 11-05-2020 ambulatory CHRISTOPHER HINSON Facility:[facility] Start: 07-16-2020 End: 07-16-[address] LUCILLE LIVINGSTON Facility:[facility] Payers Date Payer Category Payer Medicare [id number] 1960 Unknown [id number] 1945 Unknown [id number] [id number] 1945 Unknown [id number] [id number] [id number] Clinical Note 10-29-2021 Note Date & Type Note Facility 10-29-2021 Note HISTORY: Cervical sp ine, shoulder and neck pain (radiation) PROCEDURE: [employer] Sign[employer] HDXT 1.5. Sagittal T1, T2, STIR [...] and signed by Gee Nielsen on 11/01/[address] [place] [address] Gambling Supervisor History and physical note 01-13-2021 Note Date & Type Note Facility 01-13-2021 Note [id number] 01-12-2021 Note Date & Type Note Facility 01-12-2021 Note [id number] 01-12-2021 Note Date & Type Note Facility 01-12-2021 Note [id number] 01-11-2021 Note Date & Type Note Facility 01-11-2021 Note [facility] SURGERY Clinical Discharge Summary PERSON INFORMATION Name JUAN ABDALLA Age 75 Years 1945 Sex FEMALE Language Nigerien PCP LUCILLE LIVINGSTON Marital Status Med Service Ambulatory Surgery Acct# Arrival 01/11/2021 06:01:30 Visit Reason SURGERY - RIGHT TOTAL SHOULDER Acuity LOS 026 00:01 Address: [address] [place] [address] [address] [facility] [address] Comment: PROVIDER INFORMATION VITALS INFORMATION Vital Sign [...] Follow up: With: Address: When: Huang Mclaughlin [address] [place] [address] [address] [place] [address] Business (1) 01/21/2021 10:45 AM With: Address: When: LUCILLE LIVINGSTON [address] [place] [address] [place], [place] [id number] (more content not included)... [facility] Clinical Note 07-16-2020 Note Date & Type [...] was injected into the anterior chamber and [facility] cell sponge was used to check the wounds to be water tight. One drop of apraclonidine and 1 drop of prednisolone acetate were placed into the eye and shield was placed over top. The patient was sent to the postoperative area in satisfactory condition to followup the following day for postoperative care. [facility] Signed and Approved by: JAZZMINE JASMINE 08/14/2020 15:39:00 [facility] Clinical Note 07-16-2020 Note Date & [...] and go forward with her elective procedure. [facility] Signed and Approved by: JAZZMINE JASMINE 08/14/2020 15:39:00 [facility] Summary Purpose Family History No Family History Records FoundNo Family History Records FoundNo Family History Records Found Advance Directives No Advanced Directives Records FoundNo Advanced Directives Records FoundNo Advanced Directives Records Found Additional Source Comments INFORMATION SOURCE (unrecogn ized section and content) DATE CREATED AUTHOR 11/12/2020 [facility] DATE CREATED AUTHOR AUTHOR'S ORGANIZ ATION 01/30/2021 [facility] DATE CREATED AUTHOR AUTHOR'S ORGANIZ ATION 11/02/2021 [facility] dical Specialist FOR RECORDS PERTAINING TO [...] BE BASED ON THE PRIMARY CLINICAL RECORDS. [facility] [employer] [facility]. provides no warranty or guarantee of the accuracy or completeness of information in this document.
== END 2024-10-18 13:53 | disposition home or self-care (01) ==
LOC: LAB 13:58
PROVIDERS: PCP Family Medicine; Visit Provider Family Medicine
DX: M25.562 Pain in left knee (principal); S82.092A Other fracture of left patella, initial encounter for closed fracture; M25.462 Effusion, left knee
CPT/HCPCS: 73562

== ENCOUNTER 2024-10-21 15:01 | Outpatient (RCR) | payer MEDICARE, OTHER, SELFPAY | END 2025-01-09 13:04 | disposition home or self-care (01) | LOC: PT 15:01 | PROVIDERS: PCP Family Medicine; Visit Provider Family Medicine | DX: S82.009D Unspecified fracture of unspecified patella, subsequent encounter for closed fracture with routine healing (principal) | CPT/HCPCS: 97110; 97112; 97116; 97161; 97164; 97530 ==

== ENCOUNTER 2024-10-31 15:01 | Outpatient (OUT) | payer MEDICARE, OTHER, SELFPAY ==
--- OUTSIDE RECORDS SUMMARY | 2024-10-20 11:40 | XMS_ITS ---
Author Organization [facility] [place] Address [address] [place] [address] Care Team Providers Care Pipe Organ Installer Name Role Phone Liam Mann Primary Care Provider [phone] Reason For Referral Diagnosis 1 Patella fracture (S8 2.009A) Referral Organization [facility] Referring Provider First Name Liam Referring Provider Last Name Mackenzie Referring Provider Speciality Family Med icine Referred Provider TB, Physical Therap y Referred Provider Specialty Physical The rapist Referral Priority Routine REASON FOR VISIT patella fx Encounters Encounter Location Date Provider Diagnosis [facility] [address] [place] [address] 10/20/2024 Liam Mann Patella fracture S82.009A Assessments Encounter Date Diagnosis (ICD Code) Assessment Notes Treatment Notes Treatment Clinical Notes Section Notes 10/20/2024 Patella fracture (ICD-10 - S82.009A) Plan Of Treatment Referrals Referral Date Details 10/21/2024 10/21/2024, Physical Therapy [facility] Progress Notes * Carolyn MATHEWS ADOB:[birth year] (79 yo F)Acc No.[id number]:10/20/2024 Patient: Anabel MACKENZIEAUBREYMARCarolyn :1945 A ge:79 Y S ex:Female Address:[address] [place] [phone] Subjective: * Chief Complaints: * P atella fx * Medical History: * Surgical History: * Hospitalization/Major Diagno stic Procedure: * Medications: Objective: * Vitals: * Physical Examination: Assessment: * Assessment: 1. P atella fracture - S82.009A (Primary) Plan: * Treatment: * Procedure Codes: * true * Date: Generated for Kathleen solomon/Royal/Blanca on: 0 10/31/2024 03:08 PM EDT Consultation Request Notes Referral Date Referring Provider Referred Provider Not es 10/21/2024 Liam Mann [facility], Physical Therapy
--- OUTSIDE RECORDS SUMMARY | 2024-10-22 09:14 | XMS_ITS ---
Author Organization [facility] [place] Address [address] [place] [address] Care Team Providers Care Hot Dog Vender Name Role Phone Liam Mann Primary Care Provider REASON FOR VISIT walker Medications Medication SIG (Take, Route, Fr equency, Duration) Notes Start Date End Date Status Walker [place] Wheels - Use walker to safe ly completes ADLs daily for 365 days 10/22/2024 Active Encounters Encounter Location Date Provider Diagnosis [facility] [address] [place] [address] 10/22/2024 Liam Mann Plan Of Treatment Medication Medication Name Sig Start Date Stop Date Notes Walker [place] Wheels - Use walker to safe ly completes ADLs daily for 365 days 10/22/2024 Progress Notes * Carolyn MATHEWS ADOB:[birth year] (79 yo F)Acc No.[id number]:10/22/2024 Patient: Anabel Carolyn CISSE :1945 A ge:79 Y S ex:Female Address:[address] [place] [address] * Refills Start Walker [place] Wheels Miscellaneous, -, 1, Use walker to safely completes ADLs daily, 365 days, Refills=0 * true * Date: Generated for Meredithi ng/Fareddyg/eTransmitting on: 0 10/31/2024 03:07 PM EDT
--- OUTSIDE RECORDS SUMMARY | 2024-10-31 15:08 | XMS_ITS | Encounter Summary ---
Author Organization [facility] tem Address [id number] [address] [place] [address] Care Team Providers Care Chemical Blender Name Role Phone Daryn Mann MD Primary Care Provider [phone] Reason for Visit * Reason Onset Date Comments Med Refill 05/24/2018 Ly[place] Encounter Details Date Type Department Care Team (Late st Contact Info) Description 05/24/2018 Refill [facility] [address] [place] [address] Carolyn Lee, MEDICAL BILLING ASSOCIATE-HOSE COUPLING JOINER [address] [address] Thoracic spondylosis without myelopathy Social History Tobacco [...] Two week RX completed, called in to [facility]. TC to patient, aware of provider's response. Appointment made for 05/31/18. Liz Hutson RN 05/25/18 0942 * Telephone Encounter - Liz Hutson RN - 05/24/2018 1:39 PM EST 11:05 AM [facility] 05/25/18 1105 documented in this encounter Plan of Treatment Not on file documented as of this encounter Visit Diagnoses Diagnosis Thoracic spondylosis without myelopathy documented in this encounter Care Teams Chemical Blender Relationship Specialty Start Date End Date Daryn Mann MD PCP - General 02/01/17 documented as of this encounter
--- OUTSIDE RECORDS SUMMARY | 2024-10-31 15:08 | XMS_ITS | Encounter Summary ---
Author Organization [facility] Address [address] [place] [address] Care Team Providers Care Metal Roofing Mechanic Name Role Phone Unavailable Primary Care Provider Unavailabl e Source Comments In the event this information is protected by the Federal Confidentiality of Alcohol and Drug AbusePatient Records regulations: The Federal rules restrict any use of the information to criminally investigate or prosecute any alcohol or drug abuse patient.[facility] Encounter Details Date Type Department Care [...]
--- OUTSIDE RECORDS SUMMARY | 2024-10-31 15:08 | XMS_ITS | Encounter Summary ---
Author Organization [facility] tem Address [id number] [address] [place] [address] Care Team Providers Care Seed Buyer Name Role Phone Daryn Mann MD Primary Care Provider [phone] Reason for Visit * Reason Onset Date Comments Med Refill 04/11/2019 Encounter Details Date Type Department Care Team (Late st Contact Info) Description 04/11/2019 Refill [facility] [address] [place] [phone] Liz Hutson RN Thoracic spondylosis without myelopathy [...] myelopathy documented in this encounter Care Teams Seed Buyer Relationship Specialty Start Date End Date Daryn Mann MD PCP - General 02/01/17 documented as of this encounter
--- OUTSIDE RECORDS SUMMARY | 2024-10-31 15:08 | XMS_ITS | Clinical Summary ---
Author Organization [facility] Address [address] [place] [address] Care Team Providers Care Dental Technician Apprentice Name Role Phone Unavailable Primary Care Provider [...] 04/10/2024 Influenza Vaccine (#1) 2024 Insurance [facility]
--- OUTSIDE RECORDS SUMMARY | 2024-10-31 15:08 | XMS_ITS | Patient Health Record ---
Author Organization [facility] in [place] Address [address] [place] [address] Care Team Providers Care Fur Blender Name Role Phone Liam Livingston Primary Care Provider Henna Rodriguez Unavailable [phone] Allergies No Known Allergies Results Component Value Reference Range Notes XR KNEE LT 3V Reviewed date:10/20/2024 03:43:38 PM Interpretation: Performing Lab: Notes/Report: Source Facility: [place] [address] XRay Report Signed Patient: CAROLYN MATHEWS MR#: [id number] : 1945 Acct:[id number] Age/Sex: 79 / F ADM Date: 10/18/24 Loc: LAB Attending Dr: Lucille Livingston M.D. Ordering Physician: Lucille Livingston M.D. Date of Service: 10/18/24 Procedure(s): XR knee LT 3V Accession Number(s): [id number] cc: Lucille Livingston M.D. [address] [address] Patient Name: CAROLYN MATHEWS MRN: [id number] date: 1945 Sex: F Assigned Patient Location: LAB Current Patient Location: LAB Accession/Order Number: [id number] Exam Date: 10/18/2024 15:37 Report Date: 10/18/2024 15:39 At the request of: LUCILLE LIVINGSTON MD Procedure: XR knee LT 3V XR knee LT 3V 10/18/2024 2:34 PM SIGNS AND SYMPTOMS: Fall, left knee pain PROTOCOL: Frontal, lateral, and oblique radiographs of the left knee COMPARISON: None FINDINGS: There is a vertically oriented fracture along the lateral aspect of the patella which is minimally displaced. There is an accompanying joint effusion. There is narrowing of the weightbearing and patellofemoral joint spaces. 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 XR/XR knee LT 3V IMPRESSION: There is a vertically oriented fracture along the lateral aspect of the patella which is minimally displaced. There is an accompanying joint effusion. Impression dictated by: Peng Huitron M.D. 10/18/2024 3:39 PM Dictation Location: [place] [address] Electronically authenticated by: [id number] Y Date: 10/18/2024 15:39 Dictated By: Peng Huitron M.D. Signed By: 10/18/24 1541 DD/ 1539 TD/TT: Adjunct Political Science Instructor: [place] [address] XRay Report Signed Patient: CAROLYN MATHEWS MR#: [id number] : 1945 Acct:[id number] Age/Sex: 79 / F ADM Date: 10/18/24 Loc: LAB Attending Dr: Lissa Livingston M.D. Ordering Physician: Lucille Livingston M.D. Date of Service: 10/18/24 Procedure(s): XR kne e LT 3V Accession Number(s): [id number] cc: Lucille Livingston M.D. [place] [id number] Patient Name: CAROLYN MATHEWS MRN: [id number] date: 1945 Sex: F Assigned Patient Location: LAB Current Patient Location: LAB Accession/Order Numb er: [id number] Exam Date: 10/18/2024 15:37 Report Date: 10/18/2024 15:39 At the request of: LUCILLE LIVINGSTON MD Procedure: XR knee LT 3V XR knee LT 3V 025 2:34 PM SIGNS AND SYMPTOMS: Fall, left knee pain PROTOCOL: Frontal, lateral, and oblique radiographs of the left knee COMPARISON: None FINDINGS: There is a verticall y oriented fracture along the lateral aspect of the patella which is minimally displaced. There is an accompanying joint effusion. There is narrowing of the weightbearing and patellofemoral joint spaces. 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 X R/XR knee LT 3V IMPRESSION: There is a verticall y oriented fracture along the lateral aspect of the patella which is minimally displaced. There is an accompanying joint effusion. Impression dictated by: Peng Huitron M.D. 10/18/2024 3:39 PM Dictation Location: [place] [address] Electronically authenticated by: [id number] Y Date: 10/18/2024 15:39 Dictated By: Peng Huitron M.D. Signed By: 10/18/24 1541 DD/ 1539 TD/TT: Adjunct Political Science Instructor: [employer] Reviewed date:02/19/2024 01:25:02 PM Interpretation: Performing Lab: Notes/Report: [facility] , White Blood Count 6.6 4.0-11.0 10 [...] 3/uL Performing Lab: see note ML - [facility] FREE T3 Reviewed date:02/19/2024 01:25:02 PM Interpretation: Performing Lab: Notes/Report: [facility] , Free T3 1.39 2.18-3.98 pg/mL Performing Lab: see note ML - [facility] GLYCOHEMOGLOBIN A1C Reviewed date:02/19/2024 01:25:02 PM Interpretation: Performing Lab: Notes/Report: [facility] , Glycohemoglobin A1C 5.0 4.5-6.2 % > 7.0 ADA RECOMMENDED LIMIT 4.0 - 6.0 ACTION SUGGESTED ADA THERAPEUTIC TARGET < 7.0 Estimated Average Glucose 97 Performing Lab: see note ML - [facility] LIPID PROFILE Reviewed date:02/19/2024 01:25:02 PM Interpretation: Performing Lab: Notes/Report: [facility] , Triglycerides 39 <=150 mg/dL Cholesterol 220 [...] 7.1 AVERAGE RISK Performing Lab: see note - [facility] PROF 14(COMP METB) Reviewed date:02/19/2024 01:25:02 PM Interpretation: Performing Lab: Notes/Report: [facility] , Sodium 142 136-145 mmol/L Potassium 3.7 [...] 1.3 Performing Lab: see note ML - [facility] LB T4 Reviewed date:02/19/2024 01:25:02 PM Interpretation: Performing Lab: Notes/Report: [facility] , T4 Thyroxine 7.70 4.80-13.90 ug/dL Performing Lab: see note ML - [facility] LB TSH Reviewed date:02/19/2024 01:25:02 PM Interpretation: Performing Lab: Notes/Report: [facility] , Thyroid Stimulating Hormone 0.734 0.358-3.740 uIU/mL Performing Lab: see note ML - [facility] LB IRON Reviewed date:02/19/2024 01:25:02 PM Interpretation: Performing Lab: Notes/Report: [facility] , Iron 71.0 50.0-170.0 ug/dL Performing Lab: see note ML - [facility] LB Reason For Referral Diagnosis 1 Patella fracture (S8 2.009A) Referral Organization [facility] Medicine Referring Provider First Name Liam Referring Provider Last Name Radhameslizandro Referring Provider Speciality Family Med icine Referred Provider [facility], Physical Therap y Referred Provider Specialty Physical The rapist Referral Priority Routine Medications Medication SIG (Take, Route, Frequency, Duration) [...] Orally bid for 10 days 10/18/2024 Active Walker [place] [employer] - Use walker to safe ly completes ADLs daily for 365 days 10/22/2024 Active Prolia 60 MG/ML as directed Subcutaneous [...] Status Risk Notes Problem Degenerative disc disease (55267594) Degenerative disc disease (722.6) Active confirmed Problem Anxiety (69090486) Anxiety (F41.9) Active confi rmed Problem Osteopenia (146265354) Osteopenia (M85.80) Active confirmed Problem Insomnia (933182491) Insomnia (G47.00) Active confirmed Problem Degeneration of cervical intervertebral disc (34826349) Degenerative disc disease, cervical (M50.30) Active confirmed Problem Sinusitis (05004059) Sinusitis (J32.9) Active confirmed Problem Pain of left knee region (finding) (978401903904914) Knee pain, left (M25.562) Active confirmed Problem Spondylosis (6980108) Spondylosis (M47.9) Active confirmed Problem Contact dermatitis (60659221) Contact dermatitis (L25.9) Active confirmed Problem Acute sinusitis (03754951) Acute sinus infection (J01.90) Active confirmed Problem Emphysema (69738177) Emphysema (J43.9) Active confirmed Problem Irritable bowel syndrome (24436598) IBS (irritable colon syndrome) (K58.9) Active confirmed Problem Lumbar spinal stenosis (46922501) Lumbar stenosis (M48.061) Active confirmed Vital Signs Temperature 98.4 degrees Fahrenheit 02/01/2024 Blood pressure diastolic 78 mm Hg 10/18/2024 Height 65 in 10/18/2024 Blood pressure systolic 128 mm Hg 10/18/2024 Weight 111.8 lbs 10/18/2024 BMI 18.6 kg/m2 10/18/2024 Encounters Encounter Location Date Provider Diagnosis [facility] [address] [place] [address] 02/01/2024 Liam y [facility] [address] [place] [address] 02/19/[address] [address] 03/13/2024 Liam Hoy Osteopenia M85.[address] [address] 10/20/2024 Liam Hoy Patella fracture S82.009A [address] [address] 10/21/2024 Liam Hoy Patellar fracture S82.009A [address] [address] 10/22/2024 Liam Ricciy [address] [address] 02/01/2024 Henna Michael Sinusitis J32.[address] [address] 02/15/2024 Liam Hoy Osteopenia M85.80 ; Emphysema J43.9 ; Insomnia G47.00 and Lumbar stenosis M48.[address] [address] 10/18/2024 Liam Hoy Contact dermatitis L25.9 and [...] - M25.562) 03/13/2024 Osteopenia (ICD-10 - M85.80) 10/20/2024 Patella fracture (ICD-10 - S82.009A) 10/21/2024 Patellar fracture (ICD-10 - S82.009A) 02/15/2024 Insomnia (ICD-10 - G47.00) 02/15/2024 Lumbar [...] pelvis, spine )* 10/21/2022 Insulin Level 10/21/2022 THYROID PANEL (T4/TSH/FREE T3) 3 THYROID PANEL (T4/TSH/FREE T3) 4 MM screening mammo BI 02/15/2024 XR knee LT 2V 10/21/2024 Insurance Providers Payer Name Payer Address Payer Phone Subscriber Number Group Number Insured Name Patient Relationship to Insured Coverage Start Date Coverage End Date [place]IC[place] [address] [place] [address] [phone] [id number] Carolyn Mathews Self - patient is the insured [employer] [address] MEDICARE SUPP [facility] DEPT [place] [id number] Carolyn Mathews Self - patient is the insured Medications Administered Medication Instructions Date of Administration Dosage Notes Triamcinolone 40 mg/ml 10/18/2024 80 mg Medical (General) History Medical History History ICD [...] C4-C7 Right Shoulder injection- Dr Reese 11/27 18 Bilateral Breast Reduction 05/2007 Breast Biopsy, Stereotactic 12/2011 Dilation & Curettage Rotator Cuff Repair right Gallbladder back surgery Cervical Ablation- Dr Reese Right Total Shoulder, Dr Mclaughlin Hospitalization History Reason Date(Month/Year) see above
--- OUTSIDE RECORDS SUMMARY | 2024-10-31 15:08 | XMS_ITS | Clinical Summary ---
Author Organization [facility] tem Address [id number] [address] [place] [address] Care Team Providers Care Homebound Teacher Name Role Phone Daryn Mann MD Primary Care Provider [phone] Allergies No known active allergies Medications alendronate [...] (11/06/2018): Added automatically from request for surgery [id number] Localized osteoarthritis of right shoulder 08/02 Overview (08/02/2018): Added automatically from request for surgery [id number] Thoracic spondylosis without myelopathy 07/26/19 18 Overview (07/25/2017): Added automatically from request for surgery [id number] Cervical disc displacement 06/01/2017 Overview (06/01/2017): Added automatically from request for surgery [id number] Cervical spondylosis without myelopathy 03/21/20 17 Overview (03/21/2017): Added automatically from request for surgery [id number] Spondylosis of cervical orsalee on without myelopathy or radiculopathy 02/13/2017 Overview (02/13/2017): Added automatically from request for surgery [id number] Family History Medical History Relation Name Comments [...] 12/09/2024 03/18/2019 Medical Devices Implanted Type Area Pharmacy Data Analyst Device Identifier Shelf Expiration Date Model / Serial / Lot Anch Sut 5.5mm Multifix S Ult Rpl [id number] - Sna - [id number] Implanted:Qt y: 1 on 06/26/2019 by Huang Mclaughlin DO at [facility] [place] Right: Shoulder [employer] 03/23/2022 [id number] / [id number] / [id number] Mesh Srg Clgn Rcnst Scfld Med - Sna - [id number] Implanted:Qt y: 1 on 06/26/2019 by Huang Mclaughlin DO at [facility] Mesh Right: Shoulder [employer] 02/18/2022 [id number] / [id number] / [id number] Anch Bn 3 W Ascp Dlv Sys - Sna - [id number] Implanted:Qt y: 1 on 06/26/2019 by Huang Mclaughlin DO at [facility] Other Implant Right: Shoulder [employer] 03/13/2022 [id number] / [id number] / [id number] Insurance MEDICARE [facility] Care Teams Homebound Teacher Relationship Specialty Start Date End Date Daryn Mann MD PCP - General 02/01/17
--- OUTSIDE RECORDS SUMMARY | 2024-10-31 15:08 | XMS_ITS | Encounter Summary ---
Author Organization [facility] tem Address [id number] [address] [place] [address] Care Team Providers Care Campus Supervisor Name Role Phone Daryn Mann MD Primary Care Provider [phone] Reason for Visit * Reason Comments Med Refill Encounter Details Date Type Department Care Team (Late st Contact Info) Description 03/18/2018 Refill [facility] [address] [place] [phone] Matthew Reese MD [address] [place], [place] [id number] Thoracic spondylosis without myelopathy Social History Tobacco [...] myelopathy documented in this encounter Care Teams Campus Supervisor Relationship Specialty Start Date End Date Daryn Mann MD PCP - General 02/01/17 documented as of this encounter
--- OUTSIDE RECORDS SUMMARY | 2024-10-31 15:08 | XMS_ITS | Clinical Summary ---
Author Organization [facility] Address [address] [place] [address] Care Team Providers Care Tribunal Member Name Role Phone Unavailable Primary Care Provider Unavailabl e Allergies Active Allergy Reactions Criticality Noted Date Comments Diclofenac 02/13/2023 Other Reaction(s): gel/ rash Active Problems Problem Noted Date Diagnosed Date Arthritis of right glenohumeral joint 02/13/2023 Degenerative disc disease, cervical 02/13/2023 Primary osteoarthritis of right knee 02/13/2023 Other specific arthropathies , not elsewhere classified, right shoulder 02/13/2023 Pain in right shoulder 02/13/2023 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 02/13/2023 Immunizations Immunization Administration Dates Next Due Influenza, injectable, quadrivalent, preservativ e free 03/18/2019 Social History Tobacco Use Types Packs/Day Years Used Date Smoking Tobacco: Never Assessed Comments Unknown Sex and Gender Information Value Date Recorded Sex Assigned at Not on file Legal Sex Female 7:03 PM EDT Gender Identity Not on file Sexual Orientation Not on file Last Filed Vital Signs Vital Sign Reading Time Taken Comments Blood Pressure 120/77 05/29/2019 12:00 PM EST Pulse - - Temperature - - Respiratory Rate - - Oxygen Saturation - - Inhaled Oxygen Concentration - - Weight 52.2 kg (115 lb) 10/26/2021 12:00 PM EDT Height 162.6 cm (5' 4 ) 10/26/2021 12:00 PM EDT Body Mass Index 19.74 10/26/2021 12:00 PM EDT Plan of Treatment Upcoming Encounters Date Type Department Care Team (Late st Contact Info) Description 11/04/2024 1:15 PM EDT Office Visit [facility] [address] [place] [id number] Mc Guardado, DO [address] [place] [address] Health Maintenance Due Date Last Done Comments Pneumococcal Vaccine: 65+ Years (1 of 1 - PCV) 995 Influenza Vaccine (#1) 2024 03/18/2019 Insurance MEDICARE
--- NOTE | 2024-10-31 15:17 | XR_ITS ---
The [place] [id number] Patient Name: JUAN ABDALLA MRN: [id number] date: 1945 Sex: F Assigned Patient Location: [facility] Current Patient Location: [facility] Accession/Order Number: [id number] Exam Date: 10/31/2024 15:32 Report Date: 10/31/2024 15:32 At the request of: LUCILLE LIVINGSTON MD Procedure: XR knee LT 2V LEFT KNEE - 2 views CLINICAL HISTORY: Patellar Fracture COMPARISON: Left knee 10/18/2024 FINDINGS: Interval sclerosis along the presumed patellar fracture without change in alignment suggestive of healing response. Mild degenerative changes of the left knee with chondrocalcinosis of the menisci. XR/XR knee LT 2V IMPRESSION: HEALING PATELLAR FRACTURE. Impression dictated by: Gee Matta Jr., D.O. 10/31/2024 3:32 PM Dictation Location: [place] [address] Electronically authenticated by: [id number] Y Date: 10/31/2024 15:32
== END 2024-10-31 15:02 | disposition home or self-care (01) ==
LOC: RAD 15:06
PROVIDERS: PCP Family Medicine; Visit Provider Family Medicine
DX: S82.002D Unspecified fracture of left patella, subsequent encounter for closed fracture with routine healing (principal)
CPT/HCPCS: 73560

== ENCOUNTER 2024-11-20 07:52 | Outpatient (RCR) | payer MEDICARE, OTHER, SELFPAY ==
[2024-11-20 12:30] LABS: Calcium 9.3 mg/dL (8.5-10.1); Estimated GFR (African America >60 (>=60 mL/min/1.73m^2); Estimated GFR (Non-African Ame >60 (>=60 mL/min/1.73m^2)
[2024-11-20 13:14] VITALS: BP 111/67; PULSE 62; TEMP 37; O2SAT 95
[2024-11-20] MEDS: DENOSUMAB 60 MG/ML SYRINGE SUBQ (13:41)
== END 2024-12-08 23:59 | disposition home or self-care (01) ==
LOC: INF 07:52
PROVIDERS: PCP Family Medicine; Visit Provider Family Medicine
DX: M81.0 Age-related osteoporosis without current pathological fracture (principal); R31.9 Hematuria, unspecified; S82.009D Unspecified fracture of unspecified patella, subsequent encounter for closed fracture with routine healing
CPT/HCPCS: 36415; 73562; 81001; 82310; 82565; 87086; 96372; J0897

== ENCOUNTER 2024-11-20 12:00 | Outpatient (OUT) | payer MEDICARE, OTHER, SELFPAY ==
--- OUTSIDE RECORDS SUMMARY | 2024-11-15 10:15 | XMS_ITS ---
Author Organization [facility] [place] Address [address] [place] [address] Care Team Providers Care Posting Specialist Name Role Phone Liam Mann Primary Care Provider Allergies No Known Allergies REASON FOR VISIT Presents to office alone. Started with a sore throat 2 days ago. Started yesterday with a moist cough., Supposed to be on Prolia but said only had 1 injection years ago Medications Medication SIG (Take, Route, Frequency, Duration) Notes Start Date End Date Status Amoxicillin-Pot Clavulanate 875-125 MG 1 tablet Orally every 12 hrs for 10 days 11/15/2024 Active Walker Vanderbilt Wheels - Use walker to safe ly completes ADLs daily for 365 days 10/22/2024 Active Prevagen 10 MG as directed Orally Active Prolia 60 MG/ML as directed Subcutaneous Active Citalopram Hydrobromide 20 MG TAKE 1 TABLET BY MOUTH EVERY DAY FOR 30 DAYS for 90 days Active Calcium + D3 Active Cytomel 5 MCG tablet on an empty s tomach Orally Once a day for 30 days 02/19/2024 Active PreserVision AREDS 2+Multi Vit - as directed Orally Active Social History Tobacco Use: Social History Observation Description Date Details (start date - stop date) Former Smoker NA - 05/10/1991 Tobacco Use/Smoking Question Answer Notes Patient is a former smoker When did you stop smoking? 05/10/1991 How long has it been since you last smoked? > 10 years AUDIT-C (Standard) Question Answer Notes Did you have a drink containing alcohol in the p ast year? No Points 0 Interpretation Negative Problems Problem Type SNOMED Code ICD Code Onset Dates Problem Status W/U Status Risk Notes Problem Closed fracture of patella (47143853) Patellar fracture (S82.009A) Active confirmed Problem Hematuria (09738614) Hematuria (R31.9) Active confirmed Problem 24534418 Nasal congestion (R09.81) Active confirmed Problem 52668674 Acute non-recurrent sinusitis, unspecified location (J01.90) Active confirmed Vital Signs Weight 111.2 lbs 11/15/2024 Height 65 in 11/15/2024 Blood pressure systolic 118 mm Hg 11/16/19 25 Blood pressure diastolic 60 mm Hg 025 Temperature 98.8 degrees Fahrenheit 11/16/19 25 BMI 18.5 kg/m2 11/15/2024 Encounters Encounter Location Date Provider Diagnosis [facility] [address] [place] [address] 11/15/2024 Liam Holizandro Acute non-recurrent sinusitis, unspecified location J01.90 ; Nasal congestion R09.81 ; Patellar fracture S82.009A and Hematuria R31.9 Assessments Encounter Date Diagnosis (ICD Code) Assessment Notes Treatment Notes Treatment Clinical Notes Section Notes 11/15/2024 Acute non-recurrent sinusitis, unspecified location (ICD-10 - J01.90) Rest and drink more liquids, especially water. You may use a humidifier or vaporizer to help keep the drainage moist. Fsng-kch-vhqasub Nasal Saline may help the stuffy and runny nose. Use Ibuprofen and or Tylenol as needed for fever, chills, body aches or pain. Children 5 years old should not be given cwrn-mon-qogdojf cough and cold medications such as guaifenesin and dextromethorphan. If you're over age 5, you may try aunz-luu-vkjvzye cold medications such as guaifenesin and dextromethorphan, or multi-symptom cold reliever such as Dayquil to help reduce the symptoms. Antibiotics have been prescribed. You should take these until completed and follow the directions. Antibiotics can sometimes cause upset stomach, and in rare cases, serious allergic reactions or serious gastrointestinal problems. If you start having severe abdominal pain, severe vomiting, or bloody diarrhea, you should be reevaluated by your physician or urgent care immediately. Follow up with your Primary Care Provider or return to clinic if symptoms do not improve within 3-5 days 11/15/2024 Nasal congestion (ICD-10 - R09.81) 11/15/2024 Patellar fracture (ICD-10 - S82.009A) 11/15/2024 Hematuria (ICD-10 - R31.9) Plan Of Treatment Medication Medication Name Sig Start Date Stop Date Notes Amoxicillin-Pot Clavulanate 875-125 MG 1 tablet Orally every 12 hrs for 10 days 11/15/2024 Treatment Notes Assessment Notes Acute non-recurrent sinusiti s, unspecified location Rest and drink more liquids, especially water. You may use a humidifier or vaporizer to help keep the drainage moist. Ulhd-enc-wddikpk Nasal Saline may help the stuffy and runny nose. Use Ibuprofen and or Tylenol as needed for fever, chills, body aches or pain. Children 5 years old should not be given fhiu-wms-fuatfix cough and cold medications such as guaifenesin and dextromethorphan. If you're over age 5, you may try zxcg-vth-xyajpce cold medications such as guaifenesin and dextromethorphan, or multi-symptom cold reliever such as Dayquil to help reduce the symptoms. Antibiotics have been prescribed. You should take these until completed and follow the directions. Antibiotics can sometimes cause upset stomach, and in rare cases, serious allergic reactions or serious gastrointestinal problems. If you start having severe abdominal pain, severe vomiting, or bloody diarrhea, you should be reevaluated by your physician or urgent care immediately. Follow up with your Primary Care Provider or return to clinic if symptoms do not improve within 3-5 days Pending Test Test Name Order Date Urinalysis Microscopic 11/15/2024 CULTURE URINE 11/15/2024 XR KNEE LT 3V 11/15/2024 Next Appt Details Follow Up: 3-5 days if not i mproving, Reason: Progress Notes * Carolyn MATHEWS ADOB:[birth year] (79 yo F)Acc No.[id number]:11/15/2024 Progress Note Patient: Carolyn MANDUJANO Provider: Alyssa Mann ([facility])MD :1945 A ge:79 Y S ex:Female Date:11/15/2024 Address:[address] [place] [address] , [place], [id number] Check In:02:18 PM ESTCheck O ut:03:09 PM EST Subjective: * Chief Complaints: * P resents to office alone. Started with a sore throat 2 days ago. Started yesterday with a moist cough.Supposed to be on Prolia but said only had 1 injection years ago * HPI: G eneral: Left knee - pain well controlled. S inusitis: The patient complains of symptoms of sinus infection. The symptoms have been present for 1-2 days. The symptoms are moderate. Symptomatic treatment has included OTC medication. Associated symptoms include headache, facial pain, runny nose, nasal congestion. * ROS: S kin: Rash d enies. E NT: Comments S ee HPI for details. C ardiovascular: Edema d enies. P alpitations d enies. ? R espiratory: Chest pain d enies. C ough d enies. W heezing?denies. G astrointestinal: Abdominal pain d enies. N ausea d enies. V omiting d enies. * Active Problem List 722.6 Degenerative disc di sease Modified On:11/17/2022U Status:confirmed M85.80 Osteopenia Modified On:11/17/2022 Status:confirmed M50.30 Degenerative disc di sease, cervical Modified On:11/17/2022 Status:confirmed M47.9 Spondylosis Modified On:11/17/2022U Status:confirmed J43.9 Emphysema Modified On:11/17/2022U Status:confirmed K58.9 IBS (irritable colon syndrome) Modified On:11/17/2022U Status:confirmed M48.061 Lumbar stenosis Modified On:11/17/2022U Status:confirmed F41.9 Anxiety Modified On:10/21/2022U Status:confirmed G47.00 Insomnia Modified On:10/21/2022U Status:confirmed J32.9 Sinusitis Modified On:02/01/2024U Status:confirmed L25.9 Contact dermatitis Modified On:10/18/2024/U Status:confirmed M25.562 Knee pain, left Modified On:10/18/2024/U Status:confirmed S82.009A Patellar fracture Modified On:11/15/2024/U Status:confirmed R31.9 Hematuria Modified On:11/15/2024U Status:confirmed R09.81 Nasal congestion Modified On:11/15/2024/U Status:confirmed J01.90 Acute non-recurrent sinusitis, unspecified location Modified On:11/15/2024U Status:confirmed * Medical History: * Surgical History: b ack surgery Gallbladder Rotator Cuff Repair right Dilation & Curettage Breast Biopsy, Stereotactic ilateral Breast Reduction 05/2007Medial Branch Blocks- C4- C7 Thoracic Radiofrequency ablation right 06/2018Right Shoulder injection- Dr Reese 11/2018Cervical Ablation- Dr Reese Right Total Shoulder, Dr Mclaughlin * Hospitalization/Major Diagno stic Procedure: s ee above * Family History: F ather: , diagnosed with Other malignant neoplasm of unspecified site. M other: , diagnosed with Unspecified heart disease. B rother(s): , lung disease. * Social History: T obacco Use: T obacco Use/Smoking P atient is a f ormer smoker W hen did you stop smoking? 0 05/10/1991 H ow long has it been since you last smoked??> 10 years D rug/Alcohol: A VICTOR HUGO-C (Standard) D id you have a drink containing alcohol in the past year? N o P oints 0 I nterpretation N egative * Medications: T akingCalcium + D3 Citalopram Hydrobromide 20 MG Tablet TAKE 1 TABLET BY MOUTH EVERY DAY FOR 30 DAYS Cytomel(Liothyronine Sodium) 5 MCG Tablet tablet on an empty stomach Orally Once a day PreserVision AREDS 2+Multi Vit(Multiple Vitamins-Minerals) - Capsule as directed Orally Prevagen(Apoaequorin) 10 MG Capsule as directed Orally Prolia(Denosumab) 60 MG/ML Solution Prefilled Syringe as directed Subcutaneous Walker Vanderbilt Wheels - Miscellaneous Use walker to safely completes ADLs daily Taking Calcium + D3 Taking Citalopram Hydrobromide 20 MG Tablet TAKE 1 TABLET BY MOUTH EVERY DAY FOR 30 DAYS Taking Cytomel(Liothyronine Sodium) 5 MCG Tablet tablet on an empty stomach Orally Once a day Taking PreserVision AREDS 2+Multi Vit(Multiple Vitamins- Minerals) - Capsule as directed Orally Taking Prevagen(Apoaequorin) 10 MG Capsule as directed Orally Taking Prolia(Denosumab) 60 MG/ML Solution Prefilled Syringe as directed Subcutaneous Taking Walker Vanderbilt Wheels - Miscellaneous Use walker to safely completes ADLs daily DiscontinuedDoxycycline Monohydrate 100 MG Capsule 1 capsule Orally bid Triamcinolone Acetonide 0.1 % Cream 1 application Externally bid Medication List reviewed and reconciled with the patientDiscontinued Doxycycline Monohydrate 100 MG Capsule 1 capsule Orally bid Discontinued Triamcinolone Acetonide 0.1 % Cream 1 application Externally bid Medication List reviewed and reconciled with the patient * Allergies: N .K.D.A.no[Allergies Verified] Objective: * Vitals: W t:111.2lbs, Ht: 65 in, BP:118/60mm Hg, Temp:98.8F, BMI:18.5Index, Ht-cm: 165.1 cm, Wt-k.44 kg. * Examination: G eneral Examination: GENERAL APPEARANCE: in no acute distress, well developed, well nourished. ENT: ear and nose external appearance normal, tympanic membranes clear bilaterally, facial tenderness to palpation over sinuses. EYES: pupils equal, round, reactive to light and accomodations. ORAL CAVITY: mucosa moist. NECK: n majo supple, full range of motion, no cervical lymphadenopathy. LUNGS: c lear to auscultation bilaterally. CARDIO: no murmurs, regular rate and rhythm, S1, S2 normal. ABDOMEN: soft, nontender , not distended, bowel sounds are active. SKIN: no suspicious lesions, warm and dry. EXTREMITIES: no clubbing, cyanosis, or edema. NEUROLOGIC: nonfocal, motor strength of upper/lower extremities intact , sensory exam intact. Assessment: * Assessment: 1. A cute non-recurrent sinusitis, unspecified location - J01.90 (Primary) 2 .?Nasal congestion - R09.81 3 . P atellar fracture - S82.009A ?4. H ematuria - R31.9 Plan: * Treatment: 2. P atellar fracture I maging: XR KNEE LT 3V 3. H ematuria L AB: Urinalysis Microscopic L AB: CULTURE URINE * Procedure Codes: * Preventive Medicine: Screenings/Counseling: F ALL RISK SCREENING Fall Risk Assessment: N o falls in the past year * Follow Up: 3 -5 days if not improving * * Sign off status: Completed Visit Status: C HK (Check Out) true * Provider: Alyssa Mann ([facility])MD Date: 0 11/15/2024 Generated for Printi ng/Faxing/eTransmitting on: 11/20/2024 12:03 PM EDT History and Physical Notes * HPI (History of Present Illness) Category Sub-Category Detail Notes Category Not es General Left knee - renetta n well controlled Examination Category Sub-Category Detail Notes Category Not es General Examination GENERAL APPEARANCE: in no ac [place] distress, well developed, well nourished ENT: ear and nose externa l appearance normal, tympanic membranes clear bilaterally, facial tenderness to palpation over sinuses EYES: pupils equal, round, reactive to light and accomodations NECK: neck supple, full ra nge of motion, no cervical lymphadenopathy CARDIO: no murmurs, regular rate and rhythm, S1, S2 normal LUNGS: clear to auscultatio n bilaterally ABDOMEN: soft, nontender , no t distended, bowel sounds are active NEUROLOGIC: nonfocal, motor stre ngth of upper/lower extremities intact , sensory exam intact SKIN: no suspicious lesion s, warm and dry EXTREMITIES: no clubbing, cyanosi s, or edema ORAL CAVITY: mucosa moist
--- OUTSIDE RECORDS SUMMARY | 2024-11-15 11:05 | XMS_ITS ---
Author Organization [facility] [place] Address [address] [place] [address] Care Team Providers Care Painter Assistant Name Role Phone Liam Mann Primary Care Provider REASON FOR VISIT prolia Encounters Encounter Location Date Provider Diagnosis [facility] [address] [place] [address] 11/15/2024 Liam Mann Plan Of Treatment No Information Progress Notes * Carolyn MATHEWS ADOB:[birth year] (79 yo F)Acc No.[id number]:11/15/2024 Patient: Anabel CISSECarolyn :1945 A ge:79 Y S ex:Female Address:[address] [place] [address] * true * Date: Generated for Kathleen solomon/Royal/eTransmitting on: 0 11/20/2024 12:03 PM EDT
--- OUTSIDE RECORDS SUMMARY | 2024-11-20 12:03 | XMS_ITS | Encounter Summary ---
Author Organization [facility] Address [address] [place] [address] Care Team Providers Care Fleet Service Manager Name Role Phone Unavailable Primary Care Provider Unavailabl e Source Comments In the event this information is protected by the Federal Confidentiality of Alcohol and Drug AbusePatient Records regulations: The Federal rules restrict any use of the information to criminally investigate or prosecute any alcohol or drug abuse patient.[facility] Encounter Details Date Type Department Care [...]
--- OUTSIDE RECORDS SUMMARY | 2024-11-20 12:03 | XMS_ITS | Clinical Summary ---
Author Organization [facility] Address [address] [place] [address] Care Team Providers Care Email Marketing Processor Name Role Phone Unavailable Primary Care Provider [...] Vaccine (1 - 1-dose 75+ series) 10/17/2019 Advance Directive Discussion 04/10/2024 Influenza Vaccine (#1) 2024 Insurance [address] [place], [place] [id number] [place], [place] [address]MED PPO
--- OUTSIDE RECORDS SUMMARY | 2024-11-20 12:03 | XMS_ITS | Encounter Summary ---
Author Organization [facility] tem Address [id number] [address] [place] [address] Care Team Providers Care Postal Inspector Name Role Phone Daryn Mann MD Primary Care Provider [phone] Reason for Visit * Reason Comments Med Refill Encounter Details Date Type Department Care Team (Late st Contact Info) Description 03/18/2018 Refill [facility] [address] [place] [phone] Matthew Reese MD [address], [place] [phone] Thoracic spondylosis without myelopathy Social History Tobacco [...] myelopathy documented in this encounter Care Teams Postal Inspector Relationship Specialty Start Date End Date Daryn Mann MD PCP - General 02/01/17 documented as of this encounter
--- OUTSIDE RECORDS SUMMARY | 2024-11-20 12:03 | XMS_ITS | Encounter Summary ---
Author Organization [facility] Hotlist [facility] tem Address [facility]-[id number] [address] [place] [address] Care Team Providers Care C.O.D. Biller Name Role Phone Daryn Mann MD Primary Care Provider [phone] Reason for Visit * Reason Onset Date Comments Med Refill 05/24/2018 Lyrica Encounter Details Date Type Department Care Team (Late st Contact Info) Description 05/24/2018 Refill [facility] [address] [place] [address] Carolyn Lee, PROCESSING SPEC-ECLECTIC DOCTOR [address] [address] Thoracic spondylosis without myelopathy Social History Tobacco [...] Two week RX completed, called in to [facility]. TC to patient, aware of provider's response. Appointment made for 05/31/18. Liz Hutson RN 05/25/18 0942 * Telephone Encounter - Liz Hutson RN - 05/24/2018 1:39 PM EST 11:05 AM Called into [facility] Hutson RN 05/25/18 1105 documented in this encounter Plan of Treatment Not on file documented as of this encounter Visit Diagnoses Diagnosis Thoracic spondylosis without myelopathy documented in this encounter Care Teams C.O.D. Biller Relationship Specialty Start Date End Date Daryn Mann MD PCP - General 02/01/17 documented as of this encounter
--- OUTSIDE RECORDS SUMMARY | 2024-11-20 12:04 | XMS_ITS | Clinical Summary ---
Author Organization [facility] tem Address [id number] [address] [place] [address] Care Team Providers Care Crew Leader Name Role Phone Daryn Mann MD Primary Care Provider [phone] Allergies No known active allergies Medications alendronate [...] (11/06/2018): Added automatically from request for surgery [id number] Localized osteoarthritis of right shoulder 08/02 Overview (08/02/2018): Added automatically from request for surgery [id number] Thoracic spondylosis without myelopathy 07/26/19 18 Overview (07/25/2017): Added automatically from request for surgery [id number] Cervical disc displacement 06/01/2017 Overview (06/01/2017): Added automatically from request for surgery [id number] Cervical spondylosis without myelopathy 03/21/20 17 Overview (03/21/2017): Added automatically from request for surgery [id number] Spondylosis of cervical rosalee on without myelopathy or radiculopathy 02/13/2017 Overview (02/13/2017): Added automatically from request for surgery [id number] Family History Medical History Relation Name Comments [...] 12/09/2024 03/18/2019 Medical Devices Implanted Type Area Director Validation Device Identifier Shelf Expiration Date Model / Serial / Lot Anch Sut 5.5mm Multifix S Ult Rpl [id number] - Sna - [id number] Implanted:Qt y: 1 on 06/26/2019 by Huang Mclaughlin DO at [facility] Shorter Right: Shoulder [employer] 03/23/2022 [id number] / [id number] / [id number] Mesh Srg Clgn Rcnst Scfld Med - Sna - [id number] Implanted:Qt y: 1 on 06/26/2019 by Huang Mclaughlin DO at [facility] Mesh Right: Shoulder [employer] 02/18/2022 [id number] / [id number] / [id number] Anch Bn 3 W Ascp Dlv Sys - Sna - [id number] Implanted:Qt y: 1 on 06/26/2019 by Huang Mclaughlin DO at [facility] Other Implant Right: Shoulder [employer] 03/13/2022 [id number] / [id number] / [id number] Insurance MEDICARE [facility] Care Teams Crew Leader Relationship Specialty Start Date End Date Daryn Mann MD PCP - General 02/01/17
--- OUTSIDE RECORDS SUMMARY | 2024-11-20 12:04 | XMS_ITS | Encounter Summary ---
Author Organization [facility] tem Address [id number] [address] [place] [address] Care Team Providers Care Sand Operator Name Role Phone Daryn Mann MD Primary Care Provider [phone] Reason for Visit * Reason Onset Date Comments Med Refill 04/11/2019 Encounter Details Date Type Department Care Team (Late st Contact Info) Description 04/11/2019 Refill [facility] [address] [place] [phone] Liz Hutson RN Thoracic spondylosis without myelopathy [...] myelopathy documented in this encounter Care Teams Sand Operator Relationship Specialty Start Date End Date Daryn Mann MD PCP - General 02/01/17 documented as of this encounter
--- OUTSIDE RECORDS SUMMARY | 2024-11-20 12:04 | XMS_ITS | Patient Health Record ---
Author Organization [facility] in [place] Address [address] [place] [address] Care Team Providers Care Spud Sorter Name Role Phone Liam Livingston Primary Care Provider [phone] Henna Rodriguez Unavailable [phone] Allergies No Known Allergies Results Component Value Reference Range Notes XR KNEE LT 3V Reviewed date:10/20/2024 03:43:38 PM Interpretation: Performing Lab: Notes/Report: Source Facility: [place] [address] XRay Report Signed Patient: CAROLYN MATHEWS MR#: [id number] : 1945 Acct:[id number] Age/Sex: 79 / F ADM Date: 10/18/24 Loc: LAB Attending Dr: Lucille Livingston M.D. Ordering Physician: Lucille Livingston M.D. Date of Service: 10/18/24 Procedure(s): XR knee LT 3V Accession Number(s): [id number] cc: Lucille Livingston M.D. [address] [address] Patient Name: CAROLYN MATHEWS MRN: [id number] date: 1945 Sex: F Assigned Patient Location: LAB Current Patient Location: LAB Accession/Order Number: [id number] Exam Date: 10/18/2024 15:37 Report Date: 10/18/2024 [...] Huitron M.D. 10/18/2024 3:39 PM Dictation Location: [place] [address] Electronically authenticated by: [id number] Y Date: 10/18/2024 15:39 Dictated By: Peng Huitron M.D. Signed By: 10/18/24 1541 DD/ 1539 TD/TT: Resident Manager: [place] [address] XRay Report Signed Patient: CAROLYN MATHEWS MR#: [id number] : 1945 Acct:[id number] Age/Sex: 79 / F ADM Date: 10/18/24 Loc: LAB Attending Dr: Lissa Livingston M.D. Ordering Physician: Lucille Livingston M.D. Date of Service: 10/18/24 Procedure(s): XR kne e LT 3V Accession Number(s): [id number] cc: Lucille Livingston M.D. [place] [id number] Patient Name: CAROLYN MATHEWS MRN: [id number] date: 1945 Sex: F Assigned Patient Location: LAB Current Patient Location: LAB Accession/Order Numb er: [id number] Exam Date: 10/18/2024 15:37 Report Date: 10/18/2024 [...] Huitron M.D. 10/18/2024 3:39 PM Dictation Location: [place] [address] Electronically authenticated by: [id number] Y Date: 10/18/2024 15:39 Dictated By: Peng Huitron M.D. Signed By: 10/18/24 1541 DD/ 1539 TD/TT: Resident Manager: XR knee LT 2V Reviewed date:10/31/2024 04:59:00 PM Interpretation: Performing Lab: Notes/Report: Source Facility: [place] [address] XRay Report Signed Patient: CAROLYN MATHEWS MR#: [id number] : 1945 Acct:[id number] Age/Sex: 79 / F ADM Date: 10/31/24 Loc: RAD Attending Dr: Lucille Livingston M.D. Ordering Physician: Lucille Livingston M.D. Date of Service: 10/31/24 Procedure(s): XR knee LT 2V Accession Number(s): [id number] cc: Lucille Livingston M.D. [place] [address] Patient Name: CAROLYN MATHEWS MRN: [id number] date: 1945 Sex: F Assigned Patient Location: RAD Current Patient Location: RAD Accession/Order Number: [id number] Exam Date: 10/31/2024 15:32 Report Date: 10/31/2024 15:32 At the request of: LUCILLE LIVINGSTON MD Procedure: XR knee LT 2V LEFT KNEE - 2 views CLINICAL HISTORY: Patellar Fracture COMPARISON: Left knee 10/18/2024 FINDINGS: Interval sclerosis along the presumed patellar fracture without change in alignment suggestive of healing response. Mild degenerative changes of the left knee with chondrocalcinosis of the menisci. XR/XR knee LT 2V IMPRESSION: HEALING PATELLAR FRACTURE. Impression dictated by: Gee Matta Jr., D.O. 10/31/2024 3:32 PM Dictation Location: [place] [address] Electronically authenticated by: [id number] Y Date: 10/31/2024 15:32 Dictated By: Gee Matta M.D. Signed By: 10/31/241534 DD/ 31 TD/TT: Resident Manager: [place] [address] XRay Report Signed Patient: CAROLYN MATHEWS MR#: [id number] : 1945 Acct:[id number] Age/Sex: 79 / F ADM Date: 10/31/24 Loc: [facility] Attending Dr: Lissa Livingston M.D. Ordering Physician: Lucille Livingston M.D. Date of Service: 10/31/24 Procedure(s): XR kne e LT 2V Accession Number(s): [id number] cc: Lucille Livingston M.D. [place] [address] Patient Name: CAROLYN MATHEWS MRN: [id number] date: 1945 Sex: F Assigned Patient Location: RAD Current Patient Location: [facility] Accession/Order Numb er: [id number] Exam Date: 10/31/2024 15:32 Report Date: 10/31/2024 15:32 At the request of: LUCILLE LIVINGSTON MD Procedure: XR knee LT 2V LEFT KNEE - 2 views CLINICAL HISTORY: Patellar Fracture COMPARISON: Left kne e 10/18/2024 FINDINGS: Interval sclerosis a long the presumed patellar fracture without change in alignment suggestive of healing response. Mild degenerative changes of the left knee with chondrocalcinosis of the menisci. X R/XR knee LT 2V IMPRESSION: HEALING PATELLAR FRACTURE. Impression dictated by: Gee Matta Jr., D.O. 10/31/2024 3:32 PM Dictation Location: [place] [address] Electronically authenticated by: [id number] Y Date: 10/31/2024 15:32 Dictated By: Gee Matta M.D. Signed By: 10/31/24 1535 DD/ 1532 TD/TT: Resident Manager: CBC AUTO DIFF Reviewed date:02/19/2024 01:25:02 PM Interpretation: Performing Lab: Notes/Report: [facility] , White Blood Count 6.6 [...] 3/uL Performing Lab: see note ML - [facility] FREE T3 Reviewed date:02/19/2024 01:25:02 PM Interpretation: Performing Lab: Notes/Report: [facility] , Free T3 1.39 2.18-3.98 pg/mL Performing Lab: see note ML - [facility] GLYCOHEMOGLOBIN A1C Reviewed date:02/19/2024 01:25:02 PM Interpretation: Performing Lab: Notes/Report: [facility] , Glycohemoglobin A1C 5.0 4.5-6.2 % > 7.0 ADA RECOMMENDED LIMIT 4.0 - 6.0 ACTION SUGGESTED ADA THERAPEUTIC TARGET < 7.0 Estimated Average Glucose 97 Performing Lab: see note ML - [facility] LIPID PROFILE Reviewed date:02/19/2024 01:25:02 PM Interpretation: Performing Lab: Notes/Report: [facility] , Triglycerides 39 <=150 mg/dL Cholesterol 220 <=200 mg/dL HDL Cholesterol 117 40-60 mg/dL <40 mg/dl - HIGH CARDIOVASCULAR RISK > or =60 mg/dl - LOW CARDIOVASCULAR RISK LDL Cholesterol Calculated 96.0 >190 mg/dl VERY HIGH 100-129 mg/dl NEAR OR ABOVE OPTIMAL 160-189 mg/dl HIGH 130-159 mg/dl BORDERLINE HIGH <100 mg/dl OPTIMAL VLDL CHOLESTEROL 7.8 Chol HDL Ratio 1.9 7.1 - 11.0 MODERATE RISK 3.3 - 4.4 LOW RISK >11.0 HIGH RISK 4.4 - 7.1 AVERAGE RISK Performing Lab: see note ML - [facility] LB PROF 14(COMP METB) Reviewed date:02/19/2024 01:25:02 PM Interpretation: Performing Lab: Notes/Report: [facility] , Sodium 142 136-145 mmol/L [...] 1.3 Performing Lab: see note ML - [facility] LB T4 Reviewed date:02/19/2024 01:25:02 PM Interpretation: Performing Lab: Notes/Report: [facility] , T4 Thyroxine 7.70 4.80-13.90 ug/dL Performing Lab: see note ML - [facility] LB TSH Reviewed date:02/19/2024 01:25:02 PM Interpretation: Performing Lab: Notes/Report: [facility] , Thyroid Stimulating Hormone 0.734 0.358-3.740 uIU/mL Performing Lab: see note ML - [facility] LB IRON Reviewed date:02/19/2024 01:25:02 PM Interpretation: Performing Lab: Notes/Report: [facility] , Iron 71.0 50.0-170.0 ug/dL Performing Lab: see note ML - [facility] LB Reason For Referral Diagnosis 1 Patella fracture (S8 2.009A) Referral Organization [facility] Referring Provider First Name Liam Referring Provider Last Name Mackenzie Referring Provider Speciality Family Med icine Referred Provider TB, Physical Therap y Referred Provider Specialty Physical The rapist Referral Priority Routine Medications Medication SIG (Take, Route, Frequency, Duration) Notes Start Date End Date Status Citalopram Hydrobromide 20 MG TAKE 1 TABLET BY MOUTH EVERY DAY FOR 30 DAYS for 90 days Active Calcium + D3 Active Cytomel 5 MCG tablet on an empty s tomach Orally Once a day for 30 days 02/19/2024 Active Amoxicillin-Pot Clavulanate 875-125 MG 1 tablet Orally every 12 hrs for 10 days 11/15/2024 Active Walker [place] Whe[employer] - Use walker to safe ly completes ADLs daily for 365 days 10/22/2024 Active Prevagen 10 MG as directed Orally Active PreserVision AREDS 2+Multi Vit - as directed Orally Active Prolia 60 MG/ML [...] Status Risk Notes Problem Degenerative disc disease (24608709) Degenerative disc disease (722.6) Active confirmed Problem 44238150 Nasal congestion (R09.81) Active confirmed Problem Anxiety (12617714) Anxiety (F41.9) Active confi rmed Problem Osteopenia (645318431) Osteopenia (M85.80) Active confirmed Problem Insomnia (937453215) Insomnia (G47.00) Active confirmed Problem Hematuria (70169005) Hematuria (R31.9) Active confirmed Problem Degeneration of cervical intervertebral disc (65552354) Degenerative disc disease, cervical (M50.30) Active confirmed Problem Sinusitis (21857304) Sinusitis (J32.9) Active confirmed Problem Pain of left knee region (finding) (689969522657954) Knee pain, left (M25.562) Active confirmed Problem Spondylosis (8756667) Spondylosis (M47.9) Active confirmed Problem Contact dermatitis (72898739) Contact dermatitis (L25.9) Active confirmed Problem Closed fracture of patella (37579936) Patellar fracture (S82.009A) Active confirmed Problem Emphysema (94348461) Emphysema (J43.9) Active confirmed Problem Irritable bowel syndrome (03898251) IBS (irritable colon syndrome) (K58.9) Active confirmed Problem 01492335 Acute non-recurrent sinusitis, unspecified location (J01.90) Active confirmed Problem Lumbar spinal stenosis (56731530) Lumbar stenosis (M48.061) Active confirmed Vital Signs Temperature 98.8 degrees Fahrenheit 11/15/2024 Blood pressure diastolic 60 mm Hg 11/15/2024 Height 65 in 11/15/2024 Blood pressure systolic 118 mm Hg 11/15/2024 Weight 111.2 lbs 11/15/2024 BMI 18.5 kg/m2 11/15/2024 Encounters Encounter Location Date Provider Diagnosis [facility] [address] [place] [place] [address] 02/01/2024 [facility] [address] [place] [address] 10/31/2024 [facility] [address] [place] [address] 11/15/2024 [facility] [address] [place] [address] 02/19/2024 [facility] [address] [place] [address] 03/13/2024 Liam Hoy Osteopenia M85.80 [facility] [address] [place] [address] 10/20/2024 Liam Hoy Patella fracture S82.009A [facility] [address] [place] [address] 10/21/2024 Liam Hoy Patellar fracture S82.009A [facility] [address] [place] [address] 10/22/2024 Liam [facility] [address] [place] [address] 10/31/2024 [facility] [address] [place] [address] 02/01/2024 Henna Michael Sinusitis J32.9 [facility] [address] [place] [address] 02/15/2024 Liam Hoy Osteopenia M85.80 ; Emphysema J43.9 ; Insomnia G47.00 and Lumbar stenosis M48.061 [facility] [address] [place] [address] 11/15/2024 Liam Hoy Acute non-recurrent sinusitis, unspecified location J01.90 ; Nasal congestion R09.81 ; Patellar fracture S82.009A and Hematuria R31.9 [facility] [address] [facility] [place] [address] 10/18/2024 Liam Hoy Contact dermatitis L25.9 and [...] 10/18/2024 Knee pain, left (ICD-10 - M25.562) 11/15/2024 Acute non-recurrent sinusitis, unspecified location (ICD-10 - J01.90) Rest and drink more liquids, especially water. You may use a humidifier or vaporizer to help keep the drainage moist. Hhuz-bmt-trksnba Nasal Saline may help the stuffy and runny nose. Use Ibuprofen and or Tylenol as needed for fever, chills, body aches or pain. Children 5 years old should not be given jtxv-ckn-mqprehm cough and cold medications such as guaifenesin and dextromethorphan. If you're over age 5, you may try heoi-oqg-nxzgbjd cold medications such as guaifenesin and dextromethorphan, [...] days 11/15/2024 Nasal congestion (ICD-10 - R09.81) 03/13/2024 Osteopenia (ICD-10 - M85.80) 10/20/2024 Patella fracture (ICD-10 - S82.009A) 10/21/2024 Patellar fracture (ICD-10 - S82.009A) 11/15/2024 Patellar fracture (ICD-10 - S82.009A) 02/15/2024 Insomnia (ICD-10 - G47.00) 02/15/2024 Lumbar stenosis (ICD-10 - M48.061) 11/15/2024 Hematuria (ICD-10 - R31.9) Plan Of Treatment Pending Test Test Name [...] Axial Skeleton (hips, pelvis, spine )* 10/21/2022 Urinalysis Microscopic 11/15/2024 Insulin Level 10/21/2022 CULTURE URINE 11/15/2024 XR KNEE LT 3V 11/15/2024 THYROID PANEL (T4/TSH/FREE T3) 3 THYROID PANEL (T4/TSH/FREE T3) 4 MM screening mammo BI 02/15/2024 Insurance Providers Payer Name Payer Address Payer Phone Subscriber Number Group Number Insured Name Patient Relationship to Insured Coverage Start Date Coverage End Date [place]IC[place] [address] [place] [address] [phone] [id number] Carolyn Mathews Self - patient is the insured [employer] [place] [address] [employer] [facility] 8 MEDICARE SUPP [place] [place] [id number] Carolyn Mathews Self - patient is the [...] Tinea cruris B35.6 Surgical History Surgery Date(Month/Year) Right Total Shoulder, Dr Mclaughlin Cervical Ablation- Dr Reese Right Shoulder injection- Dr Reese 11/27 18 Thoracic Radiofrequency ablation right 0 06/2018 Medial Branch Blocks- C4-C7 Bilateral Breast Reduction 05/2007 Breast Biopsy, Stereotactic 12/2011 Dilation & Curettage Rotator Cuff Repair right Gallbladder back surgery Hospitalization History Reason Date(Month/Year) see above
--- OUTSIDE RECORDS SUMMARY | 2024-11-20 12:04 | XMS_ITS | Clinical Summary ---
Author Organization [facility] Address [address] [place] [address] Care Team Providers Care Warehouse Handler Name Role Phone Unavailable Primary Care Provider Unavailabl e Allergies Active Allergy Reactions Criticality Noted Date Comments Diclofenac 02/13/2023 Other Reaction(s): gel/ rash Medications triamcinolone (Kenalog) 0.1 % cream APPLY TO THE AFFECTED AREA(S) TWICE DAILY 10/18/2024 Active liothyronine (Cytomel) 5 MCG tablet TAKE 2 TABLETS ON AN EMPTY STOMACH ORALLY ONCE A DAY 30 DAYS 09/04/2024 Active doxycycline (Monodox) 100 MG capsule Take 100 mg by mouth in the morning and 100 mg before bedtime. 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 Encounters Date Type Department Care Team Description 11/04/2024 1:15 PM EDT Office Visit [facility] [address] [place] [address] Mc Guardado, DO Bilateral posterior capsular opacification (Primary Dx); Intermediate stage nonexudative age-related macular degeneration of both eyes 11/04/2024 Bamboo flowsheet [facility] [address] [place] [address] Mc Guardado DO 11/04/2024 Travel from Last 3 Months Immunizations Immunization Administration Dates Next Due Influenza, injectable, quadrivalent, preservativ e free 03/18/2019 Social History Tobacco Use Types Packs/Day Years Used Date Smoking Tobacco: Former Cigarettes Tobacco Cessation:Counseling Given: Not Answered Comments Unknown Sex and Gender Information Value [...] 10/26/2021 12:00 PM EDT Plan of Treatment Health Maintenance Due Date Last Done Comments Pneumococcal Vaccine: 65+ Years (1 of 1 - PCV) 995 Influenza Vaccine (#1) 2024 03/18/2019 Procedures Procedure Name Priority Date/Time Associated Diagnosis Comments OCT, RETINA - OU - BOTH EYES Routine 11/04/2024 5:17 PM EDT Intermediate stage nonexudative age-related macular degeneration of both eyes from Last 3 Months Results * OCT, Retina - OU - Both Eyes (11/04/2024 5:17 PM EDT) Anatomical Region Laterality Modality Head Optical Coherenc e Tomography Narrative 11/04/2024 5:17 PM EDT Wrong OCT performed. Optic nerve (ON)s appear wnl. Mc Guardado DO OPHTH TOMOGRAPHY Edited Res ult - Final from Last 3 Months Insurance MEDICARE [facility] [place] [address]
--- OUTSIDE RECORDS SUMMARY | 2024-11-20 12:08 | XMS_ITS | CCD ---
Author Organization [facility] Care Team Providers Care Contact Center Director Name Role Phone CHRISTOPHER HINSON Consulting Unavailable CHRISTOPHER HINSON Admitting Unavailable DR LUCILLE LIVINGSTON Primary Care Unavailable CHRISTOPHER HINSON Attending Unavailable RYAN WRIGHT Consulting Unavailable DR LUCILLE LIVINGSTON Primary Care Unavailable JAZZMINE GUARDADO Attending Unavailable JAZZMINE GUARDADO Consulting Unavailable JAZZMINE GUARDADO Admitting Unavailable Unavailable Primary Care Provider UnavailJAZZMINE Eng Attending Unavailable Allergies Allergy Classification Reported Allergen(s) Allergy Type Date of Onset Reaction(s) Facility (2 sources) Diclofenac Drug Allergy 02-13-2023 [facility] Medications Current Medications Medication Drug Class(es) Dates Sig (Normalized) Sig (Original) citalopram 20 mg oral tablet (1 source) Serotonin Reuptake Inhibitor Start: 09-04-2024 take 1 tablet by mouth once daily citalopram (CeleXA) 20 MG tablet Take 20 mg by mouth Daily 09/04/2024 Active doxycycline monohydrate 100 mg oral capsule (1 source) Tetracycline-class Drug Start: 10-18-2024 take 1 capsule by mouth in the morning doxycycline (Monodox) 100 MG capsule Take 100 mg by mouth in the morning and 100 mg before bedtime. 10/18/2024 Active liothyronine sodium 0.005 mg oral tablet (1 source) l-Triiodothyronine Start: 09-04-2024 take 2 tablets by mouth once daily liothyronine (Cytomel) 5 MCG tablet TAKE 2 TABLETS ON AN EMPTY STOMACH ORALLY ONCE A DAY 30 DAYS 09/04/2024 Active triamcinolone acetonide 1 mg/ml topical cream (1 source) Corticosteroid Start: 10-18-2024 triamcinolone (Kenalog) 0.1 % cream APPLY TO THE AFFECTED AREA(S) TWICE DAILY 10/18/2024 Active Problems Active Problems Problem Classification Problem Date Documented Date Episodic/Chronic Cataract (6 sources) Age-related nuclear cataract, left eye; Translations: [After-cataract of bilateral eyes] Onset: 07-16-2020 Chronic Osteoarthritis (4 sources) Arthritis of right glenohumeral joint; Translations: [Primary osteoarthritis, right shoulder] Onset: 02-13-2023 02-13-2023 Chronic Other connective tissue disease (2 sources) History of reverse prosthetic total arthroplasty of right shoulder; Translations: [Presence of right artificial shoulder joint] Onset: 02-13-2023 02-13-2023 Chronic Other non-traumatic joint disorders (4 sources) Other specific joint derangements of right shoulder, not elsewhere classified; Translations: [OTH SPEC JOINT DERANG RT SHLDR NEC] Onset: 11-04-2020 Chronic Other non-traumatic joint disorders (2 sources) Arthropathy of right shoulder; Translations: [Other specific arthropathies, not elsewhere classified, right shoulder] Onset: 02-13-2023 02-13-2023 Chronic Retinal detachments; defects; vascular occlusion; and retinopathy (2 sources) Nonexudative age-related macular degeneration; Translations: [Nonexudative age-related macular degeneration, bilateral, intermediate dry stage] Onset: 11-04-2024 11-04-2024 Chronic Spondylosis; intervertebral disc disorders; other back problems (2 sources) Degeneration of cervical intervertebral disc; Translations: [Other cervical disc degeneration, unspecified cervical region] Onset: 02-13-2023 02-13-2023 Chronic Past or Other Problems Problem Classification Problem Date Documented Da te Episodic/Chronic Other eye disorders (1 source) Dry eye syndrome of unspecified lacrimal gland; Translations: [DRY EYE SYNDROME UNS LACRIMAL GLAND] Onset: 07-17-2020 Episodic Other non-traumatic joint disorders (2 sources) Pain in right shoulder; Translations: [Pain in joint, shoulder region] Onset: 02-13-2023 02-13-2023 Episodic Results Test Name Value Interpretation Reference Range Facility Optical coherence tomography study reporton 11-04-2024 [facility] Wrong OCT performed. Optic nerve (ON)s appear wnl. Critical access hospital Radiology Study observation (narrative) [facility] MAGR Intraoperative Recordon 01-25-2021 MAGR Intraoperative Record MAGR Intra-Op Record Summary Primary Physician: Huang Mclaughlin DO Finalized Date/Time: 01/25/21 12:23:07 Pt. Name: JUAN ABDALLA Lisa Enrique/Sex: 1945 FEMALE Med Rec #: [id number] Physician: Huang Mclaughlin DO Financial #: [id number] Pt. Type: D Room/Bed: / Admit/Disch: 01/11/21 [...] Role Performed Surgeon - Primary Anesthesiologist of Net Sorter Record Time In 01/11/21 07:38:00 01/11/21 07:38:00 01/11/21 07:38:00 Time Out 01/11/21 10:05:00 01/11/21 10:05:00 01/11/21 10:05:00 Procedure Arthroplasty Shoulder Arthroplasty Shoulder Arthroplasty Shoulder Total(Right) Total(Right) Total(Right) Last Modified By: Tremaine MERCHANT, Matthew Penaloza RN, Matthew Penaloza RN, Matthew Augustine 01/11/21 12:07:58 01/11/21 12:07:58 01/11/21 12:07:58 Entry 4 Entry 5 Entry 6 Case Attendee Elise Shaw RN, Leigh-Ann CST Johnson-Williams, Regina CST Role Performed Digital Librarian Digital Librarian Scrub Personnel Time In 01/11/21 07:38:00 01/11/21 07:38:00 01/11/21 07:38:00 Time Out 01/11/21 10:05:00 01/11/21 10:05:00 01/11/21 10:05:00 Procedure Arthroplasty Shoulder Arthroplasty Shoulder Arthroplasty Shoulder Total(Right) Total(Right) Total(Right) Last Modified By: Matthew Penaloza RN, RN, William Z Payne RN, William Z 01/11/21 12:07:58 01/11/21 12:07:58 01/11/21 12:07:58 General Comments: ANDREAS CASTRO-ARTHREX Surgical Procedures MAGR Pre-Care Text: A.20 Verifies operative procedure, surgical site, and laterality Im.150 Develops individualized plan of care Entry 1 Procedure Arthroplasty Shoulder Primary Procedure Yes Total Primary Surgeon Huang Mclaughlin Modifiers Right Mat DO Surgeon Comment RIGHT [...] Prep Agents (Im.270) Chlorhexidine Gluconate Prep By Matthew Penaloza RN and Alcohol Prep Area (Im.270) Elbow and forearm, Prep Area Details Right Hand, N (more content not included)... [facility] Coding Summaryon 01-15-2021 Coding Summary HTMLBase 64 TajefudzLSx4uYb+PGhlY WQ+NZ4BJITkY49bwWLapH 1XD0cAAU8ZABEDCTSEVU9 JPY0nyTS8BZemM7FwpiFs ZlllwZChIE68COu4AMQ4v YlvAGesjQ0iwWLeZ4z9Fm EbDA09sI97HZsvYXAzQuC 3LjZpbjsgbWFy F9osSkLybAPiMno+PHRhY mxlIHdpZHRoPScxMDAlJy NfcWkoBZ2bXg1hODXlYQO vbGxhcHNlOiBj l3xjYHKdGLhbEL5zfWjhZ 1XekHO7RYTvm6y4Zx13yT I+PZDfXOR5uOdyRJxfd23 5AyTsm4gcZUY1 qIBeFEtdDQW3A94qk9C3K PJjADJnMDZ0pFY7pV9siJ defmpnV9JdjUTsNiE6ZXZ 5xZObwI0ogHfw izxgwY7eLuo+N96PCG8AJ MSKSF3HTeo0K3KnErwqdZ I+TN85OKIiWN81oZRsgSE mm5ykwMe4BpIm OHTjWEX8oRiuWLnfr3AyS KBtS18aoLDua3R1GNSzzY cfyCGeLnTkkVL1gN4dUBi tztxow4jbmhai Jupru6rqle77yB46T48fL MtiSHNrRWR7PPMfXHMlrG vgjc5dtA1iFr1+XAnzg2m bt6jjlDo0HbNp VRZzeaObrBzsNEB0l6SwK g59K3TfcRrzk5BmDrq8ki 93xMWkr6X4mIV4WEpvBDJ iqX5pBXpiFaT9 TVKiMdTfbM81jQKtSZlyU n8rwExprWroKM8oPLJqwx sjKAWbqE1bKTLylZJncCi oSZ7sJVOrhnmn z716RdFpDCO5EHNgySDqP 7UfnR7cMqSaXHVnMEPzA0 VpwALkPGbzV133KCbgGcK 8KPTdhgCxE6Rs UDHnqEehKvY5h6N7Bg5Cf 9NommttYKR9JMxvIZOvJf D5CrObLeA8C5YaXfh4ETM zmXndBB4yU9Yq XPBhadyoseujdGL4VSFyL URdwD10wSVuSKjoRu6ni6 E5n280XTEwXJDwjE06Vm5 udDogMTBwdCBU zE3bbjxbp5eyjeunWdReS LDcPRy2WHl4HUKgjEdfNl GzGGT1WmD2JTJ9bUPwzD7 ogUiyuakrwL5j Oyc+B52tsH6kPTV8SAP5y vnnWSEqojEuOC12OH57K5 RyPjwvdGFibGU+PGRpdiB zvJakOL1fBqBq q8aaz1UgPGrgM9WhLAGuI VblNjn6NVXdICK6xOE3fC 6tKYPlNGccm9O8uNC5R9S vuhMhvb9vr9oj GXHcUOczU75mbUZsi9M2Z NPmgRW2AEPjeZvlDvFztY 93Oyc+VYOnkKsra7PcAwb xy3mei8smzIp6 MgSkZEKpzmGxkIskCUE3u 9DgQj29N07zAToeUSBpYV BlFXZiONQhvFzcsi1ldH2 wIi8+PGNvbCB3 pTX1mF4uSFTdMlH7XKidS 016GiBgrGAeOtkxe1rwt9 xjgQn6KpPuGAXyrtHplZx nAXL1u1QpBi44 S56wFNruVFVeSKNjLWDjX VLmfFmrnw1utQ6qEy0+PC 5el8scsf37kH57eTT+PHR zIYP0fMjwZWos MZBhwC4mNLipHpP4VVGiP dUljD66qBNcWQroZs1drB llzJuhZB1tXZYmyiscf31 3OyGnz6zsPJOe pGTxCTtkFAU1U58vw6G7X IKwJTVsPUG5mLY5vT3gmQ lnbjogbGVmdDsgdmVydGl rZIgzYDkiQ076 IHRvcDsnPlBhdGllbnQgT cZqNYn3C1YyBnf8BWQtmW uxBY4bhFYbQNqnGr5dwMj ppVqnJF3aJKLu mwzct337NpGdj4qqANRsf NZvEJqgGAP5I15rv3G6XZ GvHBQiDVD4lDD1bJ2gtXx nbjogbGVmdDsg nbTfaTlrQCqdZMpmT318V HRvcDsnPkJpcnRoIERhdG U2RW25ON96uWAtm8E5nZP 0J4ZmFJOecqcm zuvcbKV7NJUvLLKaqY14P r7unEzxYy2tBJUcSMF8SO NwcKOwX8FveZ2tTvYnXMN sXKMrH0YigDVj UJupA811NWocWzL8KEOts dDuP0CaAABnmTpoRtB6g8 V9Kw3WO8U7RC29EL37oUM ng4M9rVC9B4Tt IBKwbnwefmfofQG1XPZbL WQcmE35Dk9hrIklFi7sEM SpQXY5OGXzeXZgO1CquW5 yOiAjMDAwMDAw V2ZyjUUkALcpJ517RTpgX zE4YXLzziZrJ4TuKMMbvY dkQpA3c6T7Pp3SOVd3LU7 5AG62yTYhr6A4 wAL7V7WsCVLtmtjqszjzk BE6DEVeMMVsqY38Ju5jgG vjJv2cKTOzKID5CSYagWY hT7RgkE3xKbCk BEIiQJOzP6XbgQFqSYisG 673CAlaMlC1XZYtvqBgZ1 PnZVYplXjqWaR5a7M9Rt7 YBTJrQL01WEC8 nXA3VS26JX85R2QhDfqqc GFibGU+PHRhYmxlIHdpZH RoPScxMDAlJyBzdHlsZT0 wDy7dQOFbVHAw lCnhdEKbJfVgo0gkXBBcX ZjyFM4imIeeC7PrdTT9IA Wpk3p7Qf45W07rH3MwsCC +QBKirTJ7hJY6 tI7uGlCtOvX9YVgnD698X kFbnSIqHlwsp3bkv4irqE b1RcS5BEMbhfDxqYngTEW 9y3YgWn84H02u IHdpZHRoPSIxNSUiIHZhb Ynedy0jxN6hLx9+PGNvbC H9rKB8jR6cWfKmRcZ0SOu lW930JrPenRQn Ihpto8fwt9wkpBp0VnEuL JVqxsXxkYuxPUU8a3FtTh 95P2RaxArgy3YqEyu7fc0 7hFKdv0S6aZH9 Q9CvXYVbcaninFSgbKtlR E1bAWSxjgxkSXOtyK6sWD PtA2h2GcRcXoK8MNelB7B vntI2ZWXjpSXw TIadZNF2C15rk5A2MHLeU SOjRTV5zZA8mZ5seSchaf ogbGVmdDsgdmVydGljYWw qEGvmN121EVUw uVwdJORmbW0yVVPcyYPyn IdoMO7uJAUmgtawArgFIg TJKGEyBXOZIZOEJ4fSDIJ 9O0OsYys5LVHx gHkiIE1kpBVuRFdsKy7ml AwxcMmwKF8vVSWzqkxwSY YuuR9mILTcdYBhdJznJC9 fDJQnqcunw645 TiHzKAL5LOYvaBXdJ8Pzc P3zMxDnMLXtJOAcR1KfqX KiGMolH413HQnsOmA4YYS hklRjH5WrRVZp mTdxQlY8s1O1Vx1iOa3nU D9bUEB1GC80JB80lMLml9 X4bLI7K8CxVPQwpdqnhgo cjRF4XUBwPTKp vK97kZPeORrwZb9yx4N2n 240NXBmNKInkU47Gx4zuG geXGUyeEOJeE1deabuz6l vcjogIzAwMDAw QDd6XYy4WVEvtFgbLeMgT GC6RdJ0IKB1rVVqcX4nvV ydmmhqnD1zAse+NzYgWWV qgzD9Q7QcEgg0 RYAfzUrxRJ0kuVLvEOnkW r7mdWulbDrkCU7tVGIdmx jqFUBulM0gXIDuvIScoIk vAK9cHCGkzktr j664WcZcVYQ2QFVskZHiI 6ShgS9mRkHsJVXhLILzA1 WnlFHgUClrY870NLbuEdO 9YDCdcyWcA9Zx ORGorLckBmC9z7S5Ka8HV G8AFPN5O5OkMfv8SHXstW bcVB4fjGDzGZlnIb9zbAc vlHbuFT9kMFZh gcsvMMZtzS4jRVDliPSgv SwqQZ0tQADmobnqy243Wo GiSJP2IPVjrZVyI1DkeF3 yOiAjMDAwMDAw V8ArxVLpMXjjM018SKpmI mC9YMSrnkAqS2WfNFJmdX fuVzW5s5C1Yp0PLPrcG0Z xR7GoxVqfmFT+ IO92ol84J9SfDbyhAyv4P RMeNJJ4wGB5bU9ySKFiGM aul9X6lBU6C0IzrcMtlu2 oh9reCKFfIHxs L85vaDPby0K8JHEfmZJ1V TYcfIsaSaTewB09Nqi+PG QaeCwhc5SeTokxi8qiw0b psRy1JcPfJUAw oxUzaYxqWWQ8a7ZwHm17B 29sIHdpZHRoPSIzMCUiIH PcxFttrz3ccD0nTd8+PGN hrAL3hYR6zB5e CaSmKuM7RKrjD559VdKwn YDoOurvd2uuw0czkWl5Fb QcTLKrtyCbyBqvITA6z4W kKa71G0FwlKjy a2EqMtx5vi86hPXpd7F2y DA3O4MnAYGwatfwaZCroH igIP3rMIPwlmqsFVCcaO8 jZAUcE2o7JgEf QqF1YJpbB0JvhkG8DCRuk DYsEHKyuJELcR9jsrpng1 oyrebfCwMdYTMhGMm1ONw 0LWFsaWduOiBs IEH1NdP9HUA3lEUmsO4pu ZoghfgqzX3jWpn+UGh5c2 wddSVrOE4xuGQ0QM13SA6 3bOYyc7R8vJG7 E2HyTZAlxwygdlfvyRB6O IOzMKWzhQ87Rk3pkVueLp 9tZAUpSBJ3IYJpkPBeC1W iiI1xVvFeCFAs CROeR9AdaAXzKMztU382B OxhFsZ6ZIRbwlSlE2UhRD KeoIkxOyI1m5O8Di8FWP9 4MW53CA01eRDk f5L7qQC4A5ApDHYmlkkrl mekeHV6CCMhPZBvuL01Ph 9yiYxpHx9nTREmKFE5VDG znCLaL4WctD1d DzDuAYVuQWRrK4IxyIViK LnaM934POgiAaX3GIMfed XrM8KkTBQhtXzpMbT4h8T 0Lk0EWv82KR96 FS17jTQhs5R3pOV9F3TlK XQkuxkjrdakoND1KYPdWE WuhS58Kt3yqFtoDv1pBIA vNBB9MGJqcKIp C7QegN4bPiBnGPFkKZXcF 6XkwNFjPPzgP445ZAdoBa B5WQYypcUtY5SuUYLxxMw tRjB8l5Q0Sm2N RCltvyo0K9PlVoempZL+P N11JAJsSD58mYYzmHUoc2 bcvRy0UwTvNGGeHGO9bJb fWDoep5KfNLPt Y29 (more content not included)... [facility] Summary Primary Physician: Nasim Egan MD Finalized Date/Time: 01/14/21 12:46:14 Pt. Name: JUAN ABDALLA/Sex: 1945 FEMALE Med Rec #: [id number] Physician: Huang Mclaughlin DO Financial #: [id number] Pt. Type: D Room/Bed: / Admit/Disch: 01/11/21 [...] Lora RN Role Performed Surgeon - Primary Net Sorter Time In 01/11/21 07:20:00 01/11/21 07:20:00 Time [...] By: Charlette Eddy (more content not included)... [facility] Provider Orderson 01-13-2021 Provider Orders [id number] .00[facility] Consent Formson 01-12-2021 Consent Forms [id number]#1 .00[facility] Consent Forms [id number] 0 [id number]#1 .00[facility] MAGR Preoperative Recordon 1 MAGR Preoperative Record MAGR Pre-Op Record Summary Primary Physician: Huang Mclaughlin DO Finalized Date/Time: 01/12/21 13:04:04 Pt. Name: JUAN ABDALLA Lisa Dale./Sex: 1945 FEMALE Med Rec #: [id number] Physician: Huang Mclaughlin DO Financial #: [id number] Pt. Type: D Room/Bed: / Admit/Disch: 01/11/21 [...] Signed By: Charlette Eddy RN 01/12/21 13:04 [facility] Outside Recordson 01-12-2021 Outside Records [id number] .[id number] Telemetry Stripson Telemetry Strips [id number]#1 .[id number] Anesthesia Noteon 01-11-2021 Anesthesia Note Patient: JUAN ABDALLA Age: 75 years Sex: FEMALE : 1945 Associated Diagnoses: None Author: Nasim Egan MD Postoperative Information Post Operative Note: Operative Day. Anesthetic utilized: General. Health Status Allergies: Allergic Reactions (All) No Known Medication Allergies Problem list (past medical history): All Problems Arthritis / SNOMED CT 4122923 / Confirmed Osteopenia / SNOMED CT 112391895 / Confirmed Spondylosis / SNOMED CT 82820167 / Confirmed Physical Examination VS/Measurements Vital Signs [...] on: 01/11/2021 10:12 EDT] Nasim Egan MD [facility] Anesthesia Note Patient: JUAN ABDALLA Age: 75 [...] history): All Problems Arthritis / SNOMED CT 4441246 / Confirmed Osteopenia / SNOMED CT 608205571 / Confirmed Spondylosis / SNOMED CT 06405437 / Confirmed Histories Family History: Cancer Father TIA Mother Coronary heart disease Mother Procedure history: Rotator cuff repair (502865392) in 2019 at 74 Years. Comments: 12/23/2020 13:17 Charlette Cox RN Right Rotator cuff repair (073848908) in 2004 at 58 Years. Comments: 12/23/2020 13:13 Charlette Cox RN Right shoulder Cataract extraction (56024665). History of lumbar fusion (8720427972). Laminectomy (3483951218). Cholecystectomy (11398655). Breast reduction, bilateral (385771795). Colonoscopy (650261729). Social History Electronic Cigarette/Vaping Assessment Electronic Cigarette [...] Oriented. Review / Management Laboratory Results Plan [employer]#( A) physical status classification: Class I. Anesthetic Preoperative Plan Anesthesia: General. , Regional (Interscalene Block, for post op pain control). Anesthetic plan, risks, benefits, and alternatives discussed with the patient and/or family. Patient verbalized understanding. [Electronically Signed on: 01/11/2021 08:16 EDT] Nasim Egan MD [Verified on: 01/11/2021 08:16 EDT] Nasim Egan MD [facility] Inpatient Patient Summaryon 01-11-2021 Inpatient Patient Summary [address] [address] Patient Discharge Instructions Name: JUAN ABDALLA : 1945 Patient Address: [address] [place] [address] [address] [id number] Primary Care Provider: Name: LUCILLE LIVINGSTON After you are discharged if you find you have any questions, please, call [phone] ext [phone] to speak to a nurse. Discharge Diagnosis: [...] alcohol and/or drug addiction problems; contact the [facility] 31/10 Crisis Hotline -Text 4HOPE to 646975. If you received any narcotics, sedation, or [...] business decisions or sign any legal documents [facility] would like to thank you for allowing us to assist you with your healthcare needs. The following includes patient education materials and information regarding your injury/illness. JUAN ABDALLA has been given the following list of follow-up instructions, prescriptions, and patient education materials: Follow-up Instructions With: Address: When: Huang Mclaughlin [address] [facility] [address] [place] [address] Business (1) 01/21/2021 10:45 AM With: Address: When: LUCILLE YARA [address] [facility] [place] [address] Business (1) Medications During the [...] care provider. Re (more content not included)... [facility] MAGR PACU Recordon MAGR PACU Record MAGR PACU Record Summary Primary Physician: Huagn Mclaughlin DO Finalized Date/Time: 01/11/21 11:07:34 Pt. Name: JUAN ABDALLA/Sex: 1945 FEMALE Med Rec #: [id number] Physician: Huang Mclaughlin DO Financial #: [id number] Pt. Type: D Room/Bed: / Admit/Disch: 01/11/21 06:01:30 - Institution: PACU Case Times MAGR Entry 1 In PACU I 01/11/21 10:07:00 Discharge from PACU 01/11/21 11:07:00 I Last Modified By: Eric Eubanks RN 01/11/21 11:07:30 Finalized By: Eric Eubanks RN Document Signatures Signed By: Eric Eubanks RN 01/11/21 11:07 [facility] MAGR Postoperative Recordon 01-11-2021 MAGR Postoperative Record MAGR Phase II Record Summary Primary Physician: Huang Mclaughlin DO Finalized Date/Time: 01/11/21 14:46:15 Pt. Name: JUAN ABDALLA/Sex: 1945 FEMALE Med Rec #: [id number] Physician: Huang Mclaughlin DO Financial #: [id number] Pt. Type: D Room/Bed: / Admit/Disch: 01/11/21 [...] room 211 post PACU in room at bedisde Finalized By: Christie Franco RN Document Signatures Signed By: Christie Franco RN 01/11/21 14:46 Normal [facility] Operative Report - Surgeon/P art 01-11-2021 Operative [...] on: 01/11/2021 14:28 EDT] Huang Mclaughlin DO [facility] Patient Handouton 01-11-2021 Patient Handout Orthopedics Reverse [...] and water are not available, use hand content director. ? Change your dressing as told by [...] urine clear or pale yellow. ? Take jcoz-gja-umestja or prescription medicines. ? Eat foods that are high in fiber, such as fresh fruits and vegetables, whole grains, and beans. ? Limit foods that are high in fat and processed sugars, such as fried and sweet foods. ? Take wopv-jce-alvwbia and prescription medicines only as told by [...] provider. Document Revised: 11/17/2016 Document Reviewed: 09/27/2016 [employer] Patient Education ? 2019 [employer]. [facility] XR Shoulder 1 View Righton 1 XR [...] Mera Andrea MD 01/11/21 11:59 a Technologist: jAay PEDRAZA [facility] Progress Note - Nurseon Progress Note - Nurse Pre-op call done, instructed to arrive @ 0600 on 01-11-21, NPO after midnight, and need for ride to and from hospital-verbalized understanding. [Electronically Signed on: 01/08/2021 09:29 EDT] Wendy Soto RN [Verified on: 01/08/2021 09:29 EDT] Wendy Soto RN [facility] Coding Summaryon 12-31-2020 Coding Summary HTMLBase 64 FxmivpcoNDf9xHp+PGhlY WQ+VF2ZUMVvC54ddZYzpS 4MW7nKKG0JRTLIDZOJOU3 DTD3qzES9QMnmE9DeulAw JjmfsNZdKK98TGo4PEA3a PsbOFjezB2jgLRqP6c5Qt LkHZ56wW81EUlyFRQdJcO 3LjZpbjsgbWFy C5uzTnAmaSLmGqe+PHRhY mxlIHdpZHRoPScxMDAlJy GvoUseCE9uDp7kHAMmYOG vbGxhcHNlOiBj g2obRQJxZEjrGY1dqOdxL 6QhlNB9OTBhn8q1Xf13nG I+DJDkSXY6xYepNOify03 5ZrCyz5riTCD3 kEFdBKrjIZV9R12ht5W1M VPqZOAwLJR8oYE2dO3gzB finscjF3JaqAKtBiF8XXU 1fBIbpS7dvJra txlwvH1dExd+L95OQL3QE FVCEY3HSia3D1KtNbbvwK I+PR83PCHkQK13oWAbbNW pm1llyHj0HqVe BWNiTXV3aEsnIDymo7KqO SHaW33vmGSro9M0DXTxhA dlfBPjFlYrdWL1hQ6fAPc aoktzc1hyxecu Hkced9rzbn63tT53O60qH VlmSJVoCNF5LVRfKGRwxC jopm7zjX8fGu5+TXcii1b wd8owsJf6DrDq YVAosuNfnDbhKHO1f4LhK f85I1JpgEcmh9KvKxd0bq 84tKUlp9B0mSL3BLruDLY tvM8gBQbhHvJ8 WHScClYizR43aBFzDKcmT j5chPyymAyrXL6yIEDskl hmLYXniM5pCDHsgUGobYo zFV1iGZBotqeq e062RdAsSSW9CCTecDFiX 3GckN5mOeHfNXYwLCSgN8 CvdXZfKXpfF957IGrwDnP 2FINaywHrX3Ul YMZitWfwNpE8w8K5Vf7Sy 7BenhbcWHW3LCvmARH2Io ZkHfLsPyG3K4GmWpk3KKF ayIlmKI0rU2Tf XKLgysamctsqpVA8EOGhB TIbyZ93hSIuCTtqVc3un5 T6v096ZCQgRZJfoS96Hk2 udDogMTBwdCBU gK9bzohel5rpgruyGxTpP FSzSDq7AMj6PZCryDrxDm QcVYY4FnM9CGY4sRAwyK4 jgHghclkviX7m Oyc+O65nhL6eSEX5TDN0o jnwNQBqowFmIG56TM17E3 RyPjwvdGFibGU+PGRpdiB tuLyoPT0tKhTu j0qpo6XgCPcnO3PkOYRgI FqeGmc1GNXnACV0iYY5mR 3fISEeAYecf4C8qDG6Q1J rsuLzuh7vm1bc LAOgJVbqI74mjYGge6L5E IEimYI9PZAeoLezQnShpT 93Oyc+BBLgmJxtr2YoVrw dd1vze7xixBo8 RxXqRRLalaWltSvyZIT7f 8BwYg12C04qUXmbKKZwJW YvQXIdLFFfwHzpxf0xpD0 wIi8+PGNvbCB3 zBU3pG0nUOQzDeX6MMwlX 646WdQkrJEgGkwfq4mqi5 flhJl3DjHtDKInloOnzEu uQTF4y5TrCs16 A66vYGvjYTWrJOXfISJgP HHhyHxcua0lhN1cKd9+PC 4rv6uprv79yY06gMO+PHR nFIQ3iCcoACut ENXtfC3wOZfsTaR4DOVbI sFwyF89xARjJUbkIo0lyX rchYjnNB8fAGHrjyxqr09 8JhMhr1xnYUBa aRNbKEhdPKM3Y73ns9W3L YVfWRTbUYO9qWC2sQ0txH lnbjogbGVmdDsgdmVydGl uJJilFCgmU832 IHRvcDsnPlBhdGllbnQgT bFaROg0S3IvJik6SHZxsG qaEO4ohBDxZDtuEu6vuVp xaRkwRF6lIHQj mzzyt201DjFqn6yoWZViv NZcGWecFBW9J87op2D6NE HcCBKlHZR5gCV7xY6qbLf nbjogbGVmdDsg nuAmrNikIKckEHglN021E HRvcDsnPkJpcnRoIERhdG D5HF17LZ24dFKsx8G1qQR 7A6ZdTUQppssa zpzesGN3VZNdPWQvpX77W o8abCupMd5kEJJiYAV5DT TorTYxD4DjcE2eScWnJAT bUNUgK4OomOUp DNvsR236OEagHuD1RUMwj hAjK2GiREGbwUgoBlO4z8 L3Hv0VQ7C2RN92JG06eFH fj2S9vFY5X0Ry UMFgbfdrfuofcMI4GVUdB DTmwR05Sa4ynBkhNq7wZU WsIEZ9ZJCnpRXwO9QuyM9 yOiAjMDAwMDAw T3GwnAAhPTmkI662YFrxM yC5FMImvfTkG6IxJEPrkV vwQcB7y0J2Zp8PDCk4VY2 9FZ94vIBqs9D4 uPF3B9XbUCNhmmalgdspu OK8FWOxMZXynF88Yn3suB bxMz7lJRJlWVM5LRMcqWZ nM9TgtH6kBtNb XXHpRWAzX2ZtfDYdIKbgN 999ETfvEhF3SNKunuPpF8 ZtGNJzsIlpFeC0n3S1Pt5 UGRHcOH99XEX4 nEU0AQ20MB29E0AzOhwfm GFibGU+PHRhYmxlIHdpZH RoPScxMDAlJyBzdHlsZT0 aNs9gCKAwBQXo aZsbgESkYgRys0zfRCOjI AcvFZ7spMxtD1YddDD8QE Trf7c6Cx67Q03gJ3DssKX +UOJmqBD0dTT7 yA0dEbSqDaX0YDpzC921L zCiuDQkSpnfi5hmx8ylyY b3YhH5MZMxtbQjyFdlBAN 0b6HaEt85G32d IHdpZHRoPSIxNSUiIHZhb Zzkjs1uqJ4wNy6+PGNvbC T2sEU4yF8fYdHbNvO8QMk vR773ZwSyjOBh Xjsvv0oxs9vbiBw5UrLlG MOhndBiyZesZRY1c8LePv 51E5XswMatw0XxAtm8jb2 6fJWgp1Z2kHL8 N8OtKIPkluhywBXrrJpvI V6hLQLdrtfgIYZfnB4xAE RgT7y4JvFgZlH4UDsnO2E sosZ9ERHknVAe SRigJUP5D23rz6N1IMSvJ UQlFJN3kOK5lX6zxJbfak ogbGVmdDsgdmVydGljYWw cPHpmT080GHSj cJehLCTcgW3yEBHqrBVge MggZP9zGSYututfMweHBn RSRFPhOSRRTAEYJ6hXSDI 2I5NaNxo6EAQo jCzlJD7xnWDeOHdlPf4uh HxrwHacWE9bXWNlouffHH JhyQ5nYBRgdWEntHvyUY6 fEYNafsdqs874 RkFvOWC8YXEwsJRfV4Geu D3wSeLbDNVnVDNjW1XmyS JvHOxqL584MCdmNbG1VNU gbsRdD2YsKNRj dAtfAcA9d3U4Er7gUu8nP T3xNDB1IU74MZ11vYRkf3 L2rAM1S6NyZLWjdmyrxny ebYQ0HAHpKJIz pF27oGQkNUbeEw6nl4T6s 199SSUxCFAlzB87Re1inE awWQXlrATUuA6txukfa5r vcjogIzAwMDAw GWd6UPw6DCJebXkmOoXuF HR7McG0CKF4rFNcjN7ggE sqatgpjJ7vZzu+NzYgWWV qscW6Q0DnVpg2 YGKjrIxxUQ7cmZGlSShoB l9cvYaxkFjmMS1rDZNtiu hhZNMgfH6sJXUezQIriMa dMN8kXLXtlrti s877AgQgITG2VPIqjQAaG 8JfuC5iYtLwWOQkMPSiX6 QryZDyDNowE332AChyWfB 8LRZwznEpE8Mw CXPoqXepJzO1f9T6Wm5VG D3DXPN1F9RxQkh8SBHmeY niKS4utLZnWCpaCg5jtNf ofQfbFK2mVUOm nrriGZLvvO0nLNRrwLUil MnpRK1oJYNqjtjjj738Bk MlWFJ5UGUqpBToP7CdwC4 yOiAjMDAwMDAw X7JgpHJrNLznZ060CBekL lO5TMQdvoMrA1NjHIXfvQ lyJrZ8l6B9Gd0SLBygrXO +UA38cb61D7Qe XhouHjk4LRJjELJ2sES9k Y8hQXQuQCenz6X6rBW8M3 LsznNwny3ys8uoAEUdVEr pL62swZFer2E1 IODewKT9DUMaiFihTkOyj G93Oyc+EEWgwFkji4TaCv nhl2rra5segBm8DxYhJAT gdmFsaWduPSJ0 n3PwVt47J68sKKpxZNOmY EZmHEPdZKYogUfrxj7ccY 9wIi8+CNJmbIA3zFR1wT3 kPfYdNfI4TEkt K492KgDihJOiWnkjp0unx 2vydDk4VdFnLFImmuCsaT qoYYN7o9IiBc91Z5VulAo wb8UmLnk7qw85 yUFmw7W6aMW7F0PuFBYdy yropGAleTrdBR2nANRgwg ebEBHxdQ5uDCZmG2k2TaY kEoO0ZXpeP7Ms eaO8ESYyaUXfXLHqfTVWz L1lhqloi7mjcczcXcPxKJ RbQMp4UYo0SLDqeEkmLyG wVFQ2FhQ0WEK7 yMAueN8ubFahotpffF7jM yc+TYj9m5kqhOTlXE4moR C4HQ94AV42yQSwd0X6aKN 4P5CfQAYjmuhu gwmwfVE8KIDeWQCdtA68Q x0lmKceXu9oMBUcBXH2WA MtyMAvL4HkgL5rPiSnWQG nOTFgJ1CrrKJb WWfnY535TNglMjC4XMUwi eIrD7SfVOTfuAufOnA2m0 W8Si3BVD60FJ76BJ63jDI xd1T6wDZ2U7Zp XDKimhrjoytfaNS3SSJzU UXttW70Wy4hfAbvYx7uPA UpWZJ2AEVafLGyX8ZciU6 yOiAjMDAwMDAw Y1FhzLIdZDowJ297UHckK gZ9EWVmsfEpC1FsZGBfmZ hhGuJ3k2C7Cl0SBg32KT2 7UJ26kAJxx3F0 uLN9H8CiDUWftksgasbtr KX6JMWrWYXnfO46Ml2hwD bqZn2qNWZnIOI5YBZhoTF zC3PqiN4lDbKy TWKcSLXyN0VdiNYlKHsyF 307ZRvmCnE8JQGwxcTlF1 CpAJDanBfnSgM5p7X9Ds6 CYOdkuco0M6Kt PjwvdHI+HU52ZOQoHH51m GJrdXKyv9bbtEr1CrRqIX LvJYW1tYlpPWxwo2CaXJT dF94jaLHxv9U7 IGN (more content not included)... [facility] Consent Formson 12-25-2020 Consent Forms [id number] [facility] C MRSA Screenon 12-24-2020 C MRSA Screen Negative [facility] Comment on above: Performed By: #### 1 [id number] ####[facility] (DEFAULT)[address] [place] [address] Provider Orderson 12-24-2020 Provider Orders [id number] [facility] .Auto Diff 1on 12-23-2020 Auto [place] % 8 % Normal 12 [facility] Comment on above: Performed By: #### 7 [id number], [id number], [id number] ####[facility] (DEFAULT)[address] [place] [address] Baso Abs# 0.0 x10 Normal 0.0-0.2 [facility] Comment on above: Performed By: #### 7 [id number], [id number], [id number] ####[facility] (DEFAULT)[address] [place] [address] Basophils/100 WBC (Bld) 0.6 % Normal 0.2-2.0 [facility] Comment on above: Performed By: #### 7 122041, [id number], [id number] ####[facility] (DEFAULT)[address] [place] [address] Eos Abs# 0.2 x10 Normal 0.0-0.4 [facility] Comment on above: Performed By: #### 7 885997, [id number], [id number] ####[facility] (DEFAULT)[address] [place] [address] Eosinophils/100 WBC (Bld) 2.0 % Normal 0.9-4.0 [facility] Comment on above: Performed By: #### 7 957578, [id number], [id number] ####[facility] (DEFAULT)[address] [place] [address] Lymph Abs# 1.9 x10 Normal 1.3-2.9 [facility] Comment on above: Performed By: #### 7 174192, [id number], [id number] ####[facility] (DEFAULT)[address] [place] [address] Lymphocytes/100 WBC (Bld) 22 % Normal 14-48 [facility] Comment on above: Performed By: #### 7 005477, [id number], [id number] ####[facility] (DEFAULT)[address] [place] [address] Owsley Abs# 0.6 x10 Normal 0.0-0.8 [facility] Comment on above: Performed By: #### 7 550884, [id number], [id number] ####[facility] (DEFAULT)[address] [place] [address] Neut Abs# 5.9 x10 Normal 1.5-9.2 [facility] Comment on above: Performed By: #### 7 913447, [id number], [id number] ####[facility] (DEFAULT)[address] [place] [address] Neutrophils/100 WBC (Bld) 68 % Normal 44-88 [facility] Comment on above: Performed By: #### 7 334919, [id number], [id number] ####[facility] (DEFAULT)[address] [place] [place] [address] Standardon 12-23-2020 eGFR Non AA >60 Invalid Interpretation Code [facility] Comment on above: Performed By: #### 7 179603, [id number], [id number] ####[facility] (DEFAULT)[address] [place] [address] eGFR AA >60 Invalid Interpretation Code [facility] Comment on above: Result Comment: Axle Polisher ritesh Kidney disease could be indicated at eGFRs of less than 60 ml/min/1.73m2. Kidney Failure is indicated at less than 15 ml/min/1.73m2 Performed By: #### 7 624084, [id number], [id number] ####[facility] (DEFAULT)[address] [place] [address] 28821 Anion gap [Moles/Vol] 16.0 mmol/L Normal 5.0-19.0 [facility] Comment on above: Performed By: #### 7 448316, 07729299, [id number] ####[facility] (DEFAULT)[address] [place] [address] 04157 Calcium [Mass/Vol] 9.4 mg/dL Normal 8.9-10.3 [facility] Comment on above: Performed By: #### 7 361692, [id number], [id number] ####[facility] (DEFAULT)[address] [place] [address] 62686 Chloride [Moles/Vol] 102 mmol/L Normal 101-111 [facility] Comment on above: Performed By: #### 7 505744, [id number], [id number] ####[facility] (DEFAULT)[address] [place] [address] 35277 CO2 [Moles/Vol] 29 mmol/L Normal 21-32 [facility] Comment on above: Performed By: #### 7 763493, [id number], [id number] ####[facility] (DEFAULT)[address] [place] [address] 16137 Creatinine [Mass/Vol] 0.74 mg/dL Normal 0.60-1.30 [facility] Comment on above: Performed By: #### 7 158849, [id number], [id number] ####[facility] (DEFAULT)[address] [place] [address] 66588 Glucose [Mass/Vol] 89.0 mg/dL Normal 74.0-118.0 [facility] Comment on above: Performed By: #### 7 167966, 23095509, [id number] ####[facility] (DEFAULT)[address] [place] [address] 86785 Osmolality 287 mOsm/L Invalid Interpretation Code [facility] Comment on above: Performed By: #### 7 808269, [id number], [id number] ####[facility] (DEFAULT)[address] [place] [address] 71813 Potassium [Moles/Vol] 3.7 mmol/L Normal 3.6-5.1 [facility] Comment on above: Performed By: #### 7 516838, 42173666, [id number] ####[facility] (DEFAULT)[address] [place] [address] Sodium [Moles/Vol] 143.0 mmol/L Normal 136.0-144.0 [facility] Comment on above: Performed By: #### 7 794277, 64839409, [id number] ####[facility] (DEFAULT)[address] [place] [address] 59837 Urea nitrogen [Mass/Vol] 19 mg/dL Normal 8-26 [facility] Comment on above: Performed By: #### 7 295380, 81255096, [id number] ####[facility] (DEFAULT)[address] [place] [address] Urea nitrogen/Creatinine [Mass ratio] 26.0 mg/mg High 4.6-16.2 [facility] Comment on above: Performed By: #### 7 568718, 80933737, [id number] ####[facility] (DEFAULT)[address] [place] [address] CBC w/ Auto Diffon Erythrocyte distribution width (RBC) [Ratio] 13.2 % Normal 11.5-15.0 [facility] Comment on above: Performed By: #### 7 064619, 42900902, [id number] ####[facility] (DEFAULT)[address] [place] [address] Hematocrit (Bld) [Volume fraction] 41.1 % High 33.7-40.4 [facility] Comment on above: Performed By: #### 7 067754, 15528772, [id number] ####[facility] (DEFAULT)[address] [place] [address] Hemoglobin (Bld) [Mass/Vol] 13.1 g/dL Normal 11.3-15.9 [facility] Comment on above: Performed By: #### 7 750326, 40750213, [id number] ####[facility] (DEFAULT)[address] [place] [address] 80980 Instr WBC 8.6 x10 Invalid Interpretation Code [facility] Comment on above: Performed By: #### 7 483939, 43779363, [id number] ####[facility] (DEFAULT)[address] [place] [address] 55620 Man Diff? Auto Normal [facility] Comment on above: Performed By: #### 7 567320, 62564978, [id number] ####[facility] (DEFAULT)[address] [place] [address] 57190 MCH (RBC) [Entitic mass] 31 pg Normal 24-34 [facility] Comment on above: Performed By: #### 7 096951, 84581967, [id number] ####[facility] (DEFAULT)[address] [place] [address] 33071 MCHC (RBC) [Mass/Vol] 32 g/dL Normal 26-37 [facility] Comment on above: Performed By: #### 7 309936, 64099189, [id number] ####[facility] (DEFAULT)[address] [place] [address] 60158 MCV (RBC) [Entitic vol] 98 fL Normal 81-100 [facility] Comment on above: Performed By: #### 7 851212, 03020210, [id number] ####[facility] (DEFAULT)[address] [place] [address] 91241 Platelet 267 x10 Normal 138-427 [facility] Comment on above: Performed By: #### 7 854103, 44049268, [id number] ####[facility] (DEFAULT)[address] [place] [address] 71858 Platelet mean volume (Bld) [Entitic vol] 9.9 fL Normal 6.3-10.2 [facility] Comment on above: Performed By: #### 7 657053, 13505069, [id number] ####[facility] (DEFAULT)[address] [place] [address] 62525 RBC 4.18 x10 Normal 3.70-5.30 [facility] Comment on above: Performed By: #### 7 983475, 64109793, [id number] ####[facility] (DEFAULT)[address] [place] [address] WBC 8.6 x10 Normal 3.5-10.5 [facility] Comment on above: Performed By: #### 7 785654, 06768461, [id number] ####[facility] (DEFAULT)[address] [place] [address] UA [id number] 12-23-2020 UA Amorph. 3+ Normal [facility] Comment on above: Order Comment: Urina lysis Microscopic order added on by Discern Expert Rules system. Performed By: #### 5 [id number], [id number] #### [facility] (DEFAULT) [address] [place] [address] UA Bacteria None [facility] Comment on above: Order Comment: Urina lysis Microscopic order added on by Discern Expert Rules system. Performed By: #### 5 [id number], [id number] #### [facility] (DEFAULT) [address] [place] [address] UA RBC None Seen [facility] Comment on above: Order Comment: Urina lysis Microscopic order added on by Cherrish Expert Rules system. Performed By: #### 5 [id number], [id number] #### [facility] (DEFAULT) [address] [place] [address] 83828 UA WBC None Seen [facility] Comment on above: Order Comment: Urina lysis Microscopic order added on by Cherrish Expert Rules system. Performed By: #### 5 [id number], [id number] #### [facility] (DEFAULT) [address] [place] [address] UA w Culture if Ind Standard on 12-23-2020 Breakpoint UA [facility] Comment on above: Performed By: #### 5 [id number], [id number] ####[facility] (DEFAULT)[address] [place] [address] 50123 Color (U) Yellow [facility] Comment on above: Performed By: #### 5 1134615, [id number] ####[facility] (DEFAULT)[address] [place] [address] Culture? Not Indicated Invalid Interpretation Code [facility] Comment on above: Result Comment: Resu lt created by rule GL_MAGR_ADD_UA_CULT Result created by rule GL_MAGR_ADD_UA_CULT Result created by rule GL_MAGR_ADD_UA_CULT1 Performed By: #### 5 [id number], [id number] ####[facility] (DEFAULT)[address] [place] [address] Glucose (U) [Mass/Vol] Negative Normal [facility] Comment on above: Performed By: #### 5 0616096, [id number] ####[facility] (DEFAULT)[address] [place] [address] Ketones Ql (U) Negative Normal [facility] Comment on above: Performed By: #### 5 2524731, [id number] ####[facility] (DEFAULT)[address] [place] [address] Micro? Indicated Invalid Interpretation Code [facility] Comment on above: Result Comment: Resu lt created by rule GL_MAGR_ADD_UA_MICRO Performed By: #### 5 [id number], [id number] ####[facility] (DEFAULT)[address] [place] [address] UA Bilirubin Negative Normal [facility] Comment on above: Performed By: #### 5 2348120, [id number] ####[facility] (DEFAULT)[address] [place] [address] UA Blood Negative Normal NEGATIVE [facility] Comment on above: Performed By: #### 5 2138724, [id number] ####[facility] (DEFAULT)[address] [place] [address] 58912 UA Clarity CLOUDY Abnormal CLEAR [facility] Comment on above: Performed By: #### 5 3908731, [id number] ####[facility] (DEFAULT)[address] [place] [address] 52672 UA Leuk Est Negative Normal NEGATIVE [facility] Comment on above: Performed By: #### 5 8605948, [id number] ####[facility] (DEFAULT)[address] [place] [address] 19954 UA Nitrite Negative Normal NEGATIVE [facility] Comment on above: Performed By: #### 5 5800093, [id number] ####[facility] (DEFAULT)[address] [place] [address] 27930 UA pH 7.5 Normal [facility] Comment on above: Performed By: #### 5 9176959, [id number] ####[facility] (DEFAULT)[address] [place] [address] 74155 UA Protein Negative Normal NEGATIVE [facility] Comment on above: Performed By: #### 5 4676130, [id number] ####[facility] (DEFAULT)[address] [place] [address] UA Spec Grav 1.015 Normal [facility] Comment on above: Performed By: #### 5 5077726, [id number] ####[facility] (DEFAULT)[address] [place] [address] 96421 UA Urobilinogen 0.2 mg/dL Normal [facility] Comment on above: Performed By: #### 5 [id number], [id number] ####[facility] (DEFAULT)[address] [place] [address] Urine Source Clean Catch Normal [facility] Comment on above: Performed By: #### 5 1099806, [id number] ####[facility] (DEFAULT)[address] [place] [address] 77526 MRI SHOULDER RT WO CONon MRI SHOULDER [...] by: RYAN WRIGHT Date: 2020-11-04 14:53 Normal [facility] Encounters Encounter Date Encounter Type Care Provider Facility Start: 11-04-2024 End: 11-04-2024 Bamboo flowsheet Jazzmine Guardado DO Work Phone: [facility] Start: 11-04-2024 End: 11-04-2024 Bamboo flowsheet Jazzmine Guardado DO Work Phone: [facility] Start: 11-04-2024 End: 11-04-2024 ambulatory JAZZMINE GUARDADO Not Available Start: 11-04-2020 End: 11-05-2020 ambulatory CHRISTOPHER HINSON Facility:[facility] Start: 07-16-2020 End: 07-16-[address] LUCILLE LIVINGSTON Facility:[facility] Procedures Date Procedure Procedure Detail Performing Clinician Start: 11-04-2024 Computerized ophthal landry imaging retina Jazzmine Guardado DO Work Phone: Start: 11-04-2024 End: 11-04-2024 Ophth medical xm&eval compre new pt 1/> vst Bilateral posterior capsular opacification Jazzmine Guardado DO Work Phone: Comment on above: Bilateral posterior capsular opacification (Primary Dx); Intermediate stage nonexudative age-related macular degeneration of both eyes Plan of Treatment Date Care Activity Detail Author Start: 12-09-2024 Influenza vaccination Influenza Vacc ine (#1) [facility] Start: 1994 Pneumococcal Vaccine : 65+ Years (1 of 1 - PCV) Pneumococcal Vaccine: 65+ Years (1 of 1 - PCV) [facility] Immunizations Immunization Date Immunization Notes Care Provider Fa [facility] 03-18-2019 influenza, injectabl e, quadrivalent, preservative free Jazzmine Guardado DO Work Phone: [facility] 03-18-2019 influenza virus vacc ine, unspecified formulation Jazzmine Guardado DO Work Phone: [facility] Payers Date Payer Category Payer Private Health Insurance [facility] [place] [id number] 2023 Unknown [id number] 2009 Medicare MEDICARE [id number] 1959 Medicare [id number] 1959 Unknown [id number] 1945 Unknown [id number] 1944 Unknown [id number] 1944 Unknown [id number] Social History Date Type Detail Facility Tobacco smoking stat [facility] Tobacco smoking consumption unknown [facility] Start: 1945 Sex assigned at Not on file [facility] Start: 11-04-2024 Gender identity Not on file [facility] Start: 11-04-2024 Tobacco smoking stat [facility] Ex-smoker [facility] History of tobacco use Current smoker [facility] History of tobacco use Cigarette Smoker [facility] Start: 11-04-2024 History of Social function [facility] History of Present illness Narrative 11-04-2024 Jazzmine Guardado DO - 11/04/2024 1:15 PM EDT Note Date & Type Note Facility 11-04-2024 History of Presen t illness Narrative Images from the original note were not included. Subjective Patient ID: Juan Abdalla is a 79 y.o. female. Chief Complaint Blurred Vision; YAG HPI Blurred Vision In both eyes. Onset was gradual. Vision is blurred and hazy. This started months ago. Occurring constantly. It is worse throughout the day. Context: distance vision, mid-range vision, driving, night driving and dim lighting. Since onset it is gradually worsening. Associated symptoms include glare and haloes. Treatments tried include eye drops and glasses. Response to treatment was mild improvement. YAG In both eyes. Comments Pt referred by Dr. Valentin for YAG eval both eyes (OU). Pt states vision has been hazy and cloudy. Using preservative free OTC drops no improvement. Last edited by LEIA HOPE on 11/04/2024 1:45 PM. No current outpatient medications on file. (Ophthalmic Agents) No current facility-administered medications for this visit. (Ophthalmic Agents) Current Outpatient Medications (Other) Medication Sig Dispense Refill citalopram (CeleXA) 20 MG tablet Take 20 mg by mouth Daily doxycycline (Monodox) 100 MG capsule Take 100 mg by mouth in the morning and 100 mg before bedtime. liothyronine (Cytomel) 5 MCG tablet TAKE 2 TABLETS ON AN EMPTY STOMACH ORALLY ONCE A DAY 30 DAYS triamcinolone (Kenalog) 0.1 % cream APPLY TO THE AFFECTED AREA(S) TWICE DAILY No current facility-administered medications for this visit. (Other) Past Medical History: Diagnosis Date Arthritis Osteopenia Osteoporosis Allergies Allergen Reactions Diclofenac Other Reaction(s): gel/ rash Review of Systems Constitutional: Negative. HENT: Negative. Eyes: Negative. Respiratory: Negative. Cardiovascular: Negative. Gastrointestinal: Negative. Genitourinary: Negative. Musculoskeletal: Negative. Skin: Negative. Neurological: Negative. Psychiatric/Behavioral: Negative. Hematological: Negative. Endocrine: Negative. Allergic/Immunologic: Negative. Objective Base Eye Exam Visual Acuity (Snellen - Linear) Right Left Dist cc 20/30 20/70 Correction: Glasses Tonometry (Applanation, 2:01 PM) Right Left Pressure 16 16 Pupils Pupils Right PERRL Left PERRL Visual Carranza Left Right Full Full Extraocular Movement Right Left Full Full Neuro/Psych Oriented x3: Yes Dilation Both eyes: 1.0% Mydriacyl @ 1:47 PM Slit Lamp and Fundus Exam External Exam Right Left External Normal Normal Slit Lamp Exam Right Left Lids/Lashes Blepharitis Blepharitis Conjunctiva/Sclera White and quiet White and quiet Cornea Decreased tear film Decreased tear film Anterior Chamber Deep and quiet Deep and quiet Iris Round and reactive Round and reactive Lens Posterior chamber intraocular lens, 1+ Posterior capsular opacification Posterior chamber intraocular lens, 3+ Posterior capsular opacification Anterior Vitreous Normal Normal Fundus Exam Right Left Disc Hazy view Macula Soft drusen Soft drusen Assessment/Plan Diagnoses and all orders for this visit: Bilateral posterior capsular opacification - PCO OU: (Posterior Capsule Opacification) Can be observed without intervention if PCO is not visually significant. Nd:YAG laser capsulotomy may be considered if impairment of vision rises to a level that dose not meet the patient's functional needs or interferes with activities of daily living. Risks, benefits and alternatives to the procedure will be reviewed. If the patient has undergone Nd:YAG laser capsulotomy, they are to notify their public information director promptly if they have a significant change in symptoms, such as flashes of light (photopsia), an increase in floaters, loss of visual field or decrease in visual acuity. Intermediate stage nonexudative age-related macular degeneration of both eyes - ARMD OU, dry. Importance of smoking cessation, blood pressure control, and healthy diet were emphasized. Patient was advised to consider ultraviolet-B blocking sunglasses. In accordance with the AREDS study, appropriate antioxidant and mineral supplements were prescribed. Patient was instructed to self monitor their monocular vision (reading/Amsler Grid) at least weekly. Patient should immediately report any new onset of decreased vision or metamorphopsia. documented in this encounter [facility] Clinical Note 10-29-2021 Note Date & Type Note Facility 10-29-2021 Note HISTORY: Cervical sp ine, shoulder and neck pain (radiation) PROCEDURE: BemDireto Signa HDXT 1.5. Sagittal T1, T2, STIR [...] and signed by Gee Nielsen on 11/01/2021 1226 [facility] Archeology Professor History and physical note 01-13-2021 Note Date & Type Note Facility 01-13-2021 Note [id number]#1.00[facility] Medication management note 01-12-2021 Note Date & Type Note Facility 01-12-2021 Note [id number]#1.00[facility] Clinical Note 01-12-2021 Note Date & Type Note Facility 01-12-2021 Note [id number]#1.00[facility] Clinical Note 01-11-2021 Note Date & Type Note Facility 01-11-2021 Note [facility] SURGERY Clinical Discharge Summary PERSON INFORMATION Name JUAN ABDALLA Age 75 Years 1945 Sex FEMALE Language Gibraltarian PCP LUCILLE LIVINGSTON Marital Status Med Service Ambulatory Surgery Acct# Arrival 01/11/2021 06:01:30 Visit Reason SURGERY - RIGHT TOTAL SHOULDER Acuity LOS 026 00:01 Address: [address] [place] [address] Comment: PROVIDER INFORMATION VITALS INFORMATION Vital Sign [...] Follow up: With: Address: When: Huang Mclaughlin [address], [address] [place] [address] Business (1) 01/21/2021 10:45 AM With: Address: When: LUCILLE LIVINGSTON [address] [place] [address] [place] [address] (more content not included)... [facility] Clinical Note 07-16-2020 Note Date & Type [...] was injected into the anterior chamber and [facility] cell sponge was used to check the wounds to be water tight. One drop of apraclonidine and 1 drop of prednisolone acetate were placed into the eye and shield was placed over top. The patient was sent to the postoperative area in satisfactory condition to followup the following day for postoperative care. [facility] Signed and Approved by: JAZZMINE GUARDADO 08/14/2020 15:39:00 [facility] Clinical Note 07-16-2020 Note Date & [...] Pupils motility, muscle balance and confrontational visual carranza within normal limits bilaterally. Pressures are measured [...] and go forward with her elective procedure. [facility] Signed and Approved by: JAZZMINE GUARDADO 08/14/2020 15:39:00 [facility] Evaluation note Note Date & Type Note Facility Evaluation note Diagnosis Bilateral posterior capsular opacification- Primary Unspecified after-cataract Intermediate stage nonexudative age-related macular degeneration of both eyes documented in this encounter [facility] Summary Purpose Family History No Family History Records FoundNo Family History Records FoundNo Family History Records FoundNo Family History Records Found Advance Directives No Advanced Directives Records FoundNo Advanced Directives Records FoundNo Advanced Directives Records FoundNo Advanced Directives Records Found Additional Source Comments INFORMATION SOURCE (unrecogn ized section and content) DATE CREATED AUTHOR 11/12/2020 [facility] DATE CREATED AUTHOR AUTHOR'S ORGANIZ ATION 01/30/2021 [facility] DATE CREATED AUTHOR AUTHOR'S ORGANIZ ATION 11/02/2021 [facility] DATE CREATED AUTHOR AUTHOR'S ORGANIZ ATION 11/05/2024 [facility] EPIC Reason for Visit (unrecogniz ed section and content) Reason Comments Blurred Vision YAG FOR RECORDS PERTAINING TO PATIENTS WHO ARE [...] BE BASED ON THE PRIMARY CLINICAL RECORDS. [facility]. provides no warranty or guarantee of the accuracy or completeness of information in this document.
--- NOTE | 2024-11-20 12:24 | XR_ITS ---
The [address] [address] Patient Name: JUAN ABDALLA MRN: [id number] date: 1945 Sex: F Assigned Patient Location: LAB Current Patient Location: LAB Accession/Order Number: [id number] Exam Date: 11/20/2024 14:20 Report Date: 11/20/2024 14:20 At the request of: LUCILLE LIVINGSTON MD Procedure: XR knee LT 3V LEFT KNEE - 3 views CLINICAL HISTORY: patellar fracture COMPARISON: Left knee 10/31/2024 FINDINGS: Patellar fracture line is less conspicuous suggestive of healing response. Mild degenerative changes of the left knee with chondrocalcinosis of the menisci. XR/XR knee LT 3V IMPRESSION: HEALING PATELLAR FRACTURE. Impression dictated by: Gee Matta Jr. [id number] 11/20/2024 2:20 PM Dictation Location: [place] [address] Electronically authenticated by: [id number] Y Date: 11/20/2024 14:20
[2024-11-20 12:33] LABS: Glucose Urine UA NEGATIVE (NEGATIVE)
[2024-11-20 12:49] LABS: Cast Seen? NONE SEEN #/LPF (NONE SEEN); Crystals Seen? None Seen #/HPF (None Seen); Urine Culture Indicated ALREADY ORDERED
== END 2024-11-20 12:01 | disposition home or self-care (01) ==
LOC: LAB 12:02
PROVIDERS: PCP Family Medicine; Visit Provider Family Medicine
DX: R31.9 Hematuria, unspecified (principal); S82.009D Unspecified fracture of unspecified patella, subsequent encounter for closed fracture with routine healing
CPT/HCPCS: 73562; 81001; 87086